=== PATIENT | female | born 1950 | race Caucasian/White ===

== ENCOUNTER 2024-01-23 07:48 | Inpatient (IN) | payer MEDICARE, SELFPAY ==
[2024-01-23] VITALS (50 sets, daily range): BP systolic 109–167; BP diastolic 53–72; PULSE 100–157; RESP 20–33; TEMP 36.1–37.3; O2SAT 85–100; BMI 22.9
--- NOTE | ~2024-01-23 | CT_ITS ---
CT Scan of the Chest without Contrast: Clinical Indication: Mass Technique: Contiguous sections were acquired throughout the chest without intravenous contrast. Dose reduction technique was used on this scan by utilizing automated exposure control and iterative recon struction technique. The dose-length product (DLP) was 163.19 mGy-cm. Findings: There is no evidence of any significant mediastinal, hilar or axillary lymphadenopathy. The mediastin al soft tissues appear normal. No pericardial effusion. Small left pleural effusion present. No right pleural effusion. There is left basilar consolidation, involving the lingula and anterolateral left lower lobe. There i s extensive interstitial change, chronic-appearing in the bilateral upper lobes, probable left apical scarring. Additional somewhat streaky opacities in the left upper lobe suggest chronic scarring, as well as in the right upper lobe. There is a 9 mm nodular opacity in the right lower lobe (axial image 51). Images through the upper abdomen reveal cholelithiasis. Infrarenal abdominal aorta measures up to 3 c m in maximum diameter. Impression: Consolidation of the lingula and anterolateral left lobe is suggestive of pneumonia. Extensive probable chronic interstitial change with areas of superimposed probable chronic scarring o r atelectasis, especially the upper lobes. 9 mm nodular opacity right lower lobe, indeterminate, possibly additional chronic scarring. Follow-up CT scan after interval therapy (in 1-3 months) recommended to reassess pulmonary pathology. Possible partially imaged infrarenal abdominal aortic aneurysm, with visualized portion measuring up to 3 cm in maximum diameter. Reviewed, dictated and finalized at [facility]. Impression: Consolidation of the lingula and anterolateral left lobe is suggestive of pneum onia. Extensive probable chronic interstitial change with areas of superimposed proba ble chronic scarring or atelectasis, especially the upper lobes. 9 mm nodular opacity right lower lobe, indeterminate, possibly additional chron ic scarring. Follow-up CT scan after interval therapy (in 1-3 months) recommended to reasses s pulmonary pathology. Possible partially imaged infrarenal abdominal aortic aneurysm, with visualized portion measuring up to 3 cm in maximum diameter.
--- NOTE | ~2024-01-23 | XR_ITS ---
XR chest 1V portable DATE: 01/23/2024 08:39 INDICATION: Shortness of breath. Nonproductive cough. TECHNIQUE: Portable upright AP chest on 01/23/2024 at 0829 hours COMPARISON: None FINDINGS: Scattered patchy infiltrates are noted including both upper lung desir, right lung base an d to a greater extent left mid and particularly left lower lung desir, including patchy consolidatio n in the left lower lung. Mild to moderate left and small right pleural effusions. There is volume loss of the left lung with leftward shift of the heart mediastinum. Left hilar mass l esion or adenopathy is not excluded. Heart size is borderline. Aortic calcification. Osteopenia. Mild thoracic levoscoliosis. IMPRESSION: Patchy bilateral pulmonary infiltrates, most prominent in the left mid and particularly l eft lower lung zones Volume loss of left lung with leftward heart and mediastinal shift Bilateral pleural effusions, left greater than right Left hilar prominence; left hilar mass lesion or adenopathy is not excluded Aortic atherosclerosis Osteopenia Reviewed, dictated and finalized at location [facility]. IMPRESSION: Patchy bilateral pulmonary infiltrates, most prominent in the left mid and particularly left lower lung zones Volume loss of left lung with leftward heart and mediastinal shift Bilateral pleural effusions, left greater than right Left hilar prominence; left hilar mass lesion or adenopathy is not excluded Aortic atherosclerosis Osteopenia
--- NOTE | ~2024-01-23 | XR_ITS ---
EXAMINATION: XR chest 1V portable DATE: 02/04/2024 06:12 INDICATION: Pneumonia. TECHNIQUE: A single frontal view of the chest was obtained. COMPARISON: Chest single view 02/03/2024, chest CT 01/23/2024 FINDINGS: There is mild elevation of left hemidiaphragm. There are airspace and interstitial opacitie s in all lung zones bilaterally. There are small pleural effusions. No pneumothorax. The heart size i s normal. IMPRESSION: 1. Stable diffuse lung disease, likely a combination of pneumonia and pulmonary edema superimposed on chronic lung disease. 2. Stable small pleural effusions. Reviewed, dictated and finalized at location [facility].
--- NOTE | ~2024-01-23 | US_ITS ---
EXAMINATION: US renal BI DATE: 01/31/2024 17:09 INDICATION: Elevated creatinine. TECHNIQUE: Multiple ultrasound grayscale images of the kidneys were obtained. COMPARISON: Chest CT 01/23/2024 FINDINGS: The right kidney measures 10.0 x 4.5 x 3.6 cm. The left kidney measures 8.1 x 4.2 x 4.6 cm. The kidne ys demonstrate normal parenchymal echogenicity. There is no hydronephrosis. The bladder is normal. IMPRESSION: 1. Mild atrophy of left kidney. No hydronephrosis. Reviewed, dictated and finalized at location A.
--- NOTE | ~2024-01-23 | XR_ITS ---
Portable chest x-ray Comparison: 02/03/2024 Clinical History: Shortness of breath Findings: Small bilateral pleural effusions are again present, left larger than right. There is diff use interstitial disease in the lungs, with some focal areas of patchy consolidation. Cardiomediasti nal silhouette is stable. Bones and soft tissues are unremarkable. Impression: Diffuse interstitial pulmonary disease with patchy alveolar airspace opacities. Findings could reflec t pulmonary edema, infection, and/or chronic interstitial disease. Clinical correlation required. Small bilateral pleural effusions are unchanged. Reviewed, dictated and finalized at location . Impression: Diffuse interstitial pulmonary disease with patchy alveolar airspace opacities. Findings could reflect pulmonary edema, infection, and/or chronic interstitial disease. Clinical correlation required. Small bilateral pleural effusions are unchanged.
--- NOTE | ~2024-01-23 | XR_ITS ---
EXAMINATION: XR chest 1V portable DATE: 02/08/2024 05:42 INDICATION: Post COVID organizing pneumonia. TECHNIQUE: A single frontal view of the chest was obtained. COMPARISON: Chest single view 02/07/2024, chest CT 02/05/2024 FINDINGS: There is volume loss of left hemithorax. There are is a diffuse coarse interstitial pattern in the lungs. There are peripheral airspace opacities in all lung zones bilaterally. There are small pleural effusions. No pneumothorax. The heart size is normal. IMPRESSION: 1. Stable diffuse lung disease, likely a combination of pneumonia and pulmonary edema superimposed on chronic lung disease. 2. Stable small pleural effusions. Reviewed, dictated and finalized at location A.
--- NOTE | ~2024-01-23 | XR_ITS ---
XR chest 1V portable DATE: 02/03/2024 06:48 INDICATION: Respiratory distress TECHNIQUE: Portable AP chest on 02/03/2024 0623 hours COMPARISON: 01/30/2024 portable AP chest FINDINGS: Scattered patchy infiltrates are increased since 01/30/2024. Mild bilateral pleural effusion s, left greater than right are again noted. Chronic pulmonary fibrotic changes likely. Diffuse osteopenia. IMPRESSION: Scattered patchy bilateral pulmonary infiltrates, mildly increased since 01/30/2004 Reviewed, dictated and finalized at location A.
--- NOTE | ~2024-01-23 | CT_ITS ---
EXAMINATION: CT diagnostic chest wo con DATE: 02/05/2024 14:44 INDICATION: Shortness of breath. History of Covid. TECHNIQUE: Computed tomography (CT) of the chest was performed without intravenous contrast. Automate d exposure control and iterative reconstruction technique were employed. Exam dose: 158.69 mGy-cm to abdoul exam DLP. COMPARISON: February 04, 2024 portable AP chest 01/23/2024 CT chest FINDINGS: Low-attenuation blood pool suggesting anemia. There is some calcification at the aortic valve. Coronary artery calcifications. Mild cardiomegaly. T here is atherosclerotic calcification of the thoracic aorta and great vessels. No thoracic aortic ane urysm. There is abdominal aortic calcification and calcification at the origins of the celiac, superi or mesenteric and renal arteries. Likely reactive mild mediastinal lymphadenopathy. Extensive patchy consolidation in the upper lobes, increased since 01/23/2024 suggesting bilateral pne umonia. There is increased atelectasis or infiltrate at the left lower lobe and interval infiltrate a nd atelectasis in the right lower lobe since 01/23/2024, in addition to new right pleural effusion sin ce 01/23/2024. Chronic emphysematous changes of the lungs and chronic patchy bilateral scarring and honeycombing Mild to moderate left pleural effusion, mildly increased since 01/23/2024. Sternal manubrium and body fractures are suggested on the sagittal reconstructions are more likely du e to motion; recommend clinical correlation. No suspicious osteolytic or osteoblastic lesions. IMPRESSION: Increased bilateral pulmonary infiltrates and atelectasis since 01/23/2024 Increased moderate left pleural effusion and new mild right pleural effusion since 01/23/2024 Chronic bilateral pulmonary scarring, honeycombing, emphysematous changes Reviewed, dictated and finalized at [facility]. Reviewed, dictated and finalized at location [facility]. IMPRESSION: Increased bilateral pulmonary infiltrates and atelectasis since Increased moderate left pleural effusion and new mild right pleural effusion si nce 01/23/2024 Chronic bilateral pulmonary scarring, honeycombing, emphysematous changes
--- NOTE | ~2024-01-23 | XR_ITS ---
EXAMINATION: XR chest 1V portable DATE: 01/30/2024 05:32 INDICATION: COVID-19 pneumonia. TECHNIQUE: A single frontal view of the chest was obtained. COMPARISON: Chest single view 01/23/2024, chest CT 01/23/2024 FINDINGS: There are interstitial and airspace opacities in all lung zones bilaterally, worst in left lower lung zone. There is a small left pleural effusion. No pneumothorax. The heart size is normal. IMPRESSION: 1. Stable diffuse lung disease, consistent with pneumonia. 2. Stable small left pleural effusion. Reviewed, dictated and finalized at location A.
--- NOTE | 2024-01-23 07:51 | ECG_ITS ---
Measurements Intervals [place] Rate: 113 P: 81 WV: 118 QRS: 63 QRSD: 74 T: 44 QT: 304 QTc: 417 Interpretive Statements SINUS TACHYCARDIA BORDERLINE ST-T WAVE ABNORMALITY- INFERIOR LEADS BASELINE ARTIFACT- I, II, AVR, AVL, AVF, V1-V6 ABNORMAL ECG NO PREVIOUS ECG AVAILABLE FOR COMPARISON Electronically Signed On 01-23-2024 8:20:45 CDT by Jason Horn D.O.
[2024-01-23] MEDS: IPRATROPIUM 0.5 MG/ALBUTEROL SULFATE 2.5 MG AMPUL.NEB 3 ML INHALATION ×4 (08:01→21:09)
--- NOTE | 2024-01-23 08:03 | ED.SOB ---
HPI - SOB/Dyspnea General Chief Complaint: Shortness of Breath/Dyspnea Stated Complaint: RESP DISTRESS Time Seen by Provider: 01/23/24 08:07 History of Present Illness HPI Narrative: Pt presents to ED this morning form local [place] with SOB. Pt diagnosed with pneumonia yesterday by CXR and started on po levaquin. Pt has COPD history and is non compliant with cpap. Pt went to therapy this morning and was SOB with sats in 80's per EMS. Pt denies fever or CP or swelling in legs. Pt feels better after getting neb in route. Related Data Home Medications Medication Instructions Recorded Confirmed acetaminophen 325 mg capsule 650 mg PO ONCE 01/23/24 amlodipine 10 mg tablet 10 mg PO DAILY 01/23/24 aspirin 81 mg tablet 81 mg PO DAILY 01/23/24 bisacodyl 5 mg tablet 5 mg PO ONCE 01/23/24 calcium carbonate 600 mg-vitamin tablet PO 01/23/24 D3 1,000 unit-vitamin K2 90 mcg tab citalopram 20 mg tablet 20 mg PO DAILY 01/23/24 ferrous sulfate 325 mg (65 mg 325 mg PO DAILY 01/23/24 iron) tablet magnesium hydroxide 400 mg/5 mL 30 ml PO DAILY PRN Constipation 01/23/24 oral suspension metoprolol tartrate 50 mg tablet 100 mg PO BID 01/23/24 pantoprazole 40 mg tablet,delayed 40 mg PO QAM 01/23/24 release pravastatin 40 mg tablet 40 mg PO DAILY 01/23/24 Allergies Allergy/AdvReac Type Severity Reaction Status Date / Time No Known Allergies Allergy Verified 01/23/24 08:35 Review of Systems Review of Systems: All systems reviewed & are unremarkable except as noted in HPI and below Exam Const: General: healthy appearing and no acute distress Nutritional Appearance: well nourished Orientation/consciousness: patient oriented x3 Limitations: no limitations HENMT: Head: normal to inspection Mouth: Yes Normal oral and palatal mucosa present Resp: Effort & Inspection: labored Auscultation: wheezes Cardio: Rate: tachycardic Rhythm: regular rhythm GI: GI Palp: Yes Soft to palpation Auscultation: normal bowel sounds Skin: General skin exam: normal color Rashes: no rashes Wounds: no wounds Neuro: General: patient oriented x3, moves all extremities, no meningeal signs, no focal motor deficits and CN's II-XI intact bilaterally Cranial nerves: Yes Nystagmus not present Speech: normal speech Extrem: General: normal to inspection and no clubbing, cyanosis or edema Psych: Mental Status: mental status grossly normal Affect: normal affect Attitude: cooperative Course Vital Signs Vital signs: Vital Signs Temperature 98.7 F 01/23/24 07:45 Pulse Rate 122 H 01/23/24 07:45 Respiratory Rate 24 H 01/23/24 07:45 Pulse Oximetry 85 L 01/23/24 07:45 Oxygen Delivery Nasal Cannula 01/23/24 07:45 Oxygen Flow Rate 4 01/23/24 07:45 Temperature 98.7 F 01/23/24 07:45 Pulse Rate 136 H 01/23/24 09:18 Respiratory Rate 24 H 01/23/24 09:18 Pulse Oximetry 100 01/23/24 08:36 Oxygen Delivery Nasal Cannula 01/23/24 08:36 Oxygen Flow Rate 4 01/23/24 08:36 MDM - SOB/Dyspnea MDM Narrative Medical decision making narrative: Pt presents with SOB after diagnosis of pneumonia yesterday. Pt has pneumonia and CHF on cxr will add CT chest due to shift on cxr. Discussed with Dr Villa and agrees to admit. Differential Diagnosis Differential diagnosis: Likely acute exacerbation of chronic obstructive airways disease, congestive heart failure, community acquired pneumonia and pulmonary embolism (less likely since improved with neb and known pneumonia) Lab Data 01/23/24 08:04 01/23/24 08:04 Labs: Lab Results 01/23/24 Range/Units 08:04 WBC 19.4 H (4.5-10.0) K/mm3 RBC 2.58 L (4.2-5.4) M/mm3 Hgb 7.7 L (12.0-15.0) g/dL Hct 24.8 L (37.0-47.0) % MCV 96.1 (80-100) fl MCH 29.8 (26-34) pg MCHC 31.0 L (32-36) g/dl RDW 13.4 (11.5-14.5) % Plt Count 477 H (150-375) k/mm3 MPV 9.7 (7.4-10.4) fl Immature Gran % (Auto) 0.7 H (0-0.5) % Neut % (Aut
[2024-01-23 08:17] LABS: Basophils Absolute Auto 0.1 K/mm3 (0.0-0.1); Basophils Percent Auto 0.3 % (0.2-1.2); Eosinophils Absolute Auto 0.1 K/mm3 (0-0.3); Eosinophils Percent Auto 0.6 % (0-4.4); Hematocrit 24.8 % (37.0-47.0); Hemoglobin 7.7 g/dL (12.0-15.0); Immature Granulocyte Absolute 0.13 K/mm3 (0.00-0.031); Immature Granulocyte Percent A 0.7 % (0-0.5); Lymphocytes Percent Auto 2.6 % (18.3-44.2); Mean Corpuscular Hemoglobin 29.8 pg (26-34); Mean Corpuscular Volume 96.1 fl (80-100); Mean Platelet Volume 9.7 fl (7.4-10.4); Monocytes Absolute Auto 1.2 K/mm3 (0.1-0.6); Monocytes Percent Auto 6.1 % (2.6-8.5); Neutrophils Absolute Auto 17.5 K/mm3 (1.3-6.7); Neutrophils Percent Auto 89.7 % (45.5-73.1); Platelet Count Result 477 k/mm3 (150-375); Red Blood Count 2.58 M/mm3 (4.2-5.4); Red Cell Distribution Width 13.4 % (11.5-14.5); White Blood Count 19.4 K/mm3 (4.5-10.0)
[2024-01-23 08:20] LABS: Alveolar/Arterial O2 Gradient 172.6 mmHg; Fractional Inspired Oxygen 38 %; HCO3 ABG 27.1 mEq/l (22.0-26.0); Oxygen Content ABG 10.8 %vol (16.0-22.0); PCO2 ABG 39.4 mmHg (35.0-45.0); PO2 ABG 52.8 mmHg (80.0-100.0); PO2 FiO2 Ratio Arterial Blood 1.39 %; Total Hemoglobin 8.8 g/dL (12.0-18.0); pH ABG 7.456 (7.350-7.450)
[2024-01-23 08:22] LABS: Alanine Aminotransferase 15 U/L (6-35); Albumin Level 2.9 g/dL (3.5-5.1); Alkaline Phosphatase 98 U/L (38-126); Anion Gap 1 mmol/L (8-16); Aspartate Amino Transferase 18 U/L (14-36); Bilirubin,Total 0.5 mg/dL (0.2-1.3); Blood Urea Nitrogen 35 mg/dL (7-17); Calcium 8.3 mg/dL (8.4-10.2); Carbon Dioxide 32 mmol/L (22-30); Chloride 100 mmol/L (98-107); Estimated CRCL calculation 15 ml/min; Estimated Glomerular Filt Rate 21; Glucose 153 mg/dL (65-110); Magnesium 1.5 mg/dL (1.6-2.3); Potassium 4.6 mmol/L (3.4-5.0); Sodium 133 mmol/L (137-145)
[2024-01-23 08:23] LABS: Oxyhemoglobin 87.1 % THb (90.0-100.0)
[2024-01-23 08:23] LABS: INR 1.2; Prothrombin Time 15.6 Seconds (11.1-14.7)
[2024-01-23 08:24] LABS: Partial Thromboplastin Time 35.1 Seconds (22.3-36.8)
[2024-01-23 08:24] LABS: Device NASAL CANNULA; Liters per Minute 4.5 LPM; Modified Allen's Test Pass; Site Drawn LEFT RADIAL
[2024-01-23 08:33] LABS: NT Pro B Type Natriuretic Pept 1810 pg/mL (19.9-100)
[2024-01-23 08:34] LABS: Troponin I < 0.012 ng/mL (0.000-0.034)
[2024-01-23] MEDS: Please add drug allergy info to patient profile. 1 EACH XX (08:41)
[2024-01-23] MEDS: levoFLOXacin 750 MG/D5W 150 ML 750 MG/150 ML BAG 100 MG IVPB (09:55)
[2024-01-23] MEDS: FUROSEMIDE INJ 40 MG/4 ML VIAL IV PUSH (09:55)
[2024-01-23 11:22] LABS: Influenza A QL RT-PCR Negative (Negative); Influenza B QL RT-PCR Negative (Negative); RSV RNA, RT-PCR Negative (Negative); SARS-CoV-2 RNA PCR Positive (Negative)
--- NOTE | 2024-01-23 13:07 | PM.IMHP ---
H&P: HPI History of Present Illness Date/Time: 01/23/24 13:07 Chief Complaint: SOB Narrative: 73 y/o F presents here with SOB with PMH of CKD, chronic respiratory failure, COPD, chronic PE, DM2, HLD, and cirrhosis of the liver. Patient presents here via EMS from [place] with SOB. Patient had CXR done outpatient which showed PNA. Started on PO Levaquin yesterday. Patient was at therapy this morning when she became more SOB, patient does not recall events. Per EMS, sat was in the 80's and given DuoNeb while being transported and only modestly improved upon arrival to the ED. Patient was 85% on 4L NC. Given additional breathing treatments in ED with improvement to 93-100% on 4L. Patient tachycardiac: 120's-150's. Per review of [place] paperwork, patient has history of chronic PE. NM perfusion study ordered and patient was unable to tolerate study. Patient became acutely SOB, recurrent wheezing, hypoxic, and had worsening tachycardia. Son contributing to HPI with patient's permission. Per son, has been over a year since a provider has worked up the PE. She was seeing a collar setter overlock at [facility]. Did not follow-up do to feeling unwell on day of appt and did not reschedule, has habit of this when not her PCP. On Eliquis BID. Patient tested positive for COVID during last admission: 12/30 - 01/16. Was admitted to [facility] ICU initially for hypoglycemia but found to have COVID. Hypoglycemia secondary to medication and poor PO intake. No other recent diagnosis or treatment of PNA to son's knowledge. Patient currently reporting increased fatigue - unclear onset. Denying fever, chills, or body aches. Has baseline confusion - short term memory primarily but no formal diagnosis of dementia. Example given: will forget family is visiting when they return from the bathroom. Initial VS at presentation: 98.7F, HR 122, RR 24, 109/69, and 85% on 4L NC. ED workup showed: WBC 19.4, Hgb 7.7, INR 1.2, Na 133, creatinine 2.3, glucose 153, Mag 1.5, BNP 1810, and +COVID (unclear if old/new). CXR showed patchy bilateral pulmonary infiltrates, volume loss of left lung with leftward heart and mediastinal shift, bilateral pleural effusions, left hilar prominence. Chest CT shows consolidation of the lingula and anterior lateral left lobe suggestive of pneumonia, extensive lower chronic interstitial changes, 9 mm nodular opacity right lower lobe, and possible partially imaged infrarenal a visualized portion measuring up to 3 cm. [facility] Past Medical History Medical History (Updated 01/23/24 @ 16:11 by Lise Schuster, SEAN) Anemia CHF (congestive heart failure) Chronic pulmonary embolism Chronic respiratory failure with hypoxia Cirrhosis of liver CKD (chronic kidney disease) stage 4, GFR 15-29 ml/min COPD (chronic obstructive pulmonary disease) DM2 (diabetes mellitus, type 2) GERD (gastroesophageal reflux disease) HLD (hyperlipidemia) Severe protein-calorie malnutrition Solitary pulmonary nodule SVT (supraventricular tachycardia) Meds Home Medications and Allergies Home Medications Medication Instructions Recorded Confirmed Type acetaminophen 325 mg capsule 650 mg PO ONCE 01/23/24 History amlodipine 10 mg tablet 10 mg PO DAILY 01/23/24 History apixaban 2.5 mg tablet (Eliquis) 2.5 mg PO BID 01/23/24 History arformoterol 15 mcg/2 mL solution 2 ml inhalation BID 01/23/24 History for nebulization aspirin 81 mg tablet 81 mg PO DAILY 01/23/24 History bisacodyl 5 mg tablet 5 mg PO ONCE 01/23/24 History budesonide 0.25 mg/2 mL suspension 0.5 mg inhalation DAILY 01/23/24 History for nebulization calcium carbonate 600 mg-vitamin tablet PO 01/23/24 History D3 1,000 unit-vitamin K2 90 mcg tab citalopram 20 mg tablet 20 mg PO DAILY 01/23/24 History dextromethorphan-guaifenesin 30 1 tablet PO Q12H 01/23/24 History mg-600 mg tablet extended [id number] hr (Mucinex DM) ferrous sulfate 325 mg (65 mg 325 mg PO DAILY 01/23/24 History iron) ta
--- NOTE | 2024-01-23 13:24 | PC.NURSE ---
pt to NM scan and was unable to tolerate lying down flat. staff called to report pt was struggling to breathe. myself and charge nurse went to pt and brought her back to ED room 8 prior to test being done. while in testing room pt was in tripod position trying to catch breath. O2 was 90% and hr 160. notified and new orders coming. temporal O2 cord applied for better reading
[2024-01-23] MEDS: ALBUTEROL SULFATE NEB 2.5 MG/3 ML INH INHALATION (13:32)
[2024-01-23] MEDS: methylPREDNISolone SOD SUCC 125 MG VIAL IV PUSH (13:35)
[2024-01-23] MEDS: MAGNESIUM SULF 1 GM/D5W 100 ML 1 GM/100 ML BAG IVPB (13:51)
[2024-01-23 14:48] LABS: Lactic Acid Reflex 4.1 mmol/L (0.7-2.0)
[2024-01-23] MEDS: VANCOMYCIN 750 MG/NS 250 ML 750 MG/250 ML BAG 250 MG IVPB (16:07)
[2024-01-23] MEDS: LACTATED RINGERS 1,000 ML 999 ML IV CONT (16:07)
[2024-01-23 16:15] LABS: Glucose Point of Care 298 mg/dl (65-105)
--- NOTE | 2024-01-23 17:12 | ADMGEN ---
This patient, Nelsy Grider, was admitted to IMU Room 213-01. Patient/family oriented to hospital policies and general routines including ID bracelet, bed and alarms, visiting hours, pain management, procedures, bathroom and other care routines, personal items, smoking policy, room service/diet, and visiting hours. Information on how to activate the Rapid Response Team has been discussed. Patient/Family are encouraged to report perceived risks to care and to ask questions if they do not understand what they are told or what they should do.
[2024-01-23 17:22] LABS: Reflex Lactic Acid Yes or No Add Lactic
[2024-01-23 17:32] LABS: MRSA (PCR) NOT DETECTED (NOT DETECTE)
[2024-01-23 18:24] LABS: Anion Gap 8 mmol/L (8-16); Blood Urea Nitrogen 38 mg/dL (7-17); Carbon Dioxide 25 mmol/L (22-30); Chloride 98 mmol/L (98-107); Estimated CRCL calculation 14 ml/min; Estimated Glomerular Filt Rate 18; Glucose 347 mg/dL (65-110); Magnesium 1.9 mg/dL (1.6-2.3); Potassium 4.7 mmol/L (3.4-5.0); Sodium 131 mmol/L (137-145)
[2024-01-23] MEDS: INSULIN ASPART (*BKC) 100 UNITS/ML SUB-Q (19:12)
[2024-01-23] MEDS: METOPROLOL TARTRATE INJ 5 MG/5 ML VIAL IV PUSH (19:12)
[2024-01-23] MEDS: APIXABAN 2.5 MG TABLET PO (21:20)
--- NOTE | 2024-01-23 21:26 | PCRCNOTE ---
Pt refused to wear Bipap at night. Pt wanted to to stay on Airvo all night.
[2024-01-23 23:49] LABS: Glucose Point of Care 365 mg/dl (65-105)
[2024-01-24] VITALS (27 sets, daily range): BP systolic 132–161; BP diastolic 53–94; PULSE 73–125; RESP 16–32; TEMP 36.1–36.9; O2SAT 92–100
--- NOTE | 2024-01-24 | ECHO_ITS ---
Patient Info Name: Nelsy Grider Age: 73 years : 1950 Gender: Female Ht: 64 in Wt: 125 lbs BSA: 1.60 m2 HR: 109 bpm BP: 161 / 82 mmHg Heart Rhythm: Tachycardia Technical Quality: Good Exam Date: 01/24/2024 10:00 AM Exam Location: Echo Lab Patient Status: Inpatient Admit Date: 01/23/2024 Staff Ordering Physician: Soumya Desai MD [employer] Machine: Shelli Wilkerson RDCS Attending Provider: Mario Thomas MD Exam Type: CA echo doppler color flow Study Info Indications - sob, hypoxia Complete two-dimensional, color flow and Doppler transthoracic echocardiogram is performed. Summary 1. Complete two-dimensional, color flow and Doppler transthoracic echocardiogram is performed. 2. Left ventricular chamber dimension is normal. 3. Left ventricular systolic function is normal, estimated at 65-70%. 4. The left ventricular diastolic function is grade I diastolic dysfunction. 5. Right ventricular chamber dimension is mildly enlarged. 6. Right ventricular systolic function is normal. 7. Left atrial chamber dimension is moderately enlarged. 8. Right atrial chamber dimension is moderately enlarged. 9. There is mild tricuspid valve regurgitation. 10. Normal inferior vena cava with >50% collapse upon inspiration consistent with normal right atrial pressure, 3 mmHg. Left Ventricle Left ventricular chamber dimension is normal. Left ventricular systolic function is normal, estimated at 65-70%. There is no increased left ventricular wall thickness. The left ventricular diastolic function is grade I diastolic dysfunction. Right Ventricle Right ventricular chamber dimension is mildly enlarged. Right ventricular systolic function is normal. Left Atria Left atrial chamber dimension is moderately enlarged. Right Atria Right atrial chamber dimension is moderately enlarged. Atrial Septum Intact interatrial septum visualized by color flow imaging. Aortic Valve The aortic valve is trileaflet. There is no aortic valve stenosis. There is no aortic valve regurgitation. Pulmonic Valve The pulmonic valve is not well visualized. Mitral Valve The mitral valve has thickened leaflets. There is trace mitral valve regurgitation. Tricuspid Valve There is mild tricuspid valve regurgitation. Pericardium/Pleural There is no pericardial effusion. Inferior Vena Cava Normal inferior vena cava with >50% collapse upon inspiration consistent with normal right atrial pressure, 3 mmHg. Aorta The aortic root size at the sinus of Valsalva is normal. Left Ventricular Outflow Tract Name Value Normal LVOT 2D LVOT Diameter 2.0 cm LVOT Doppler LVOT Peak Gradient 10 mmHg LVOT Mean Gradient 6 mmHg LVOT VTI 49 cm LVOT VTI/AV VTI Ratio 1.3 LVOT Stroke Volume 160 ml LVOT CO 11.8 l/min LVOT CI 7.3 l/min/m2 Pulmonic Valve Name Value Normal RV
[2024-01-24] MEDS: IPRATROPIUM 0.5 MG/ALBUTEROL SULFATE 2.5 MG AMPUL.NEB 3 ML INHALATION ×4 (03:54→20:08)
[2024-01-24 05:14] LABS: Basophils Percent Auto 0.3 % (0.2-1.2); Hematocrit 21.7 % (37.0-47.0); Immature Granulocyte Absolute 0.05 K/mm3 (0.00-0.031); Immature Granulocyte Percent A 0.5 % (0-0.5); Lymphocytes Absolute Auto 0.26 K/mm3 (0.9-3.2); Lymphocytes Percent Auto 2.4 % (18.3-44.2); Mean Corpuscular HGB Conc 30.9 g/dl (32-36); Mean Corpuscular Hemoglobin 28.9 pg (26-34); Mean Corpuscular Volume 93.5 fl (80-100); Mean Platelet Volume 9.8 fl (7.4-10.4); Monocytes Absolute Auto 0.2 K/mm3 (0.1-0.6); Neutrophils Absolute Auto 10.1 K/mm3 (1.3-6.7); Neutrophils Percent Auto 94.8 % (45.5-73.1); Platelet Count Result 404 k/mm3 (150-375); Red Blood Count 2.32 M/mm3 (4.2-5.4); Red Cell Distribution Width 13.4 % (11.5-14.5); White Blood Count 10.7 K/mm3 (4.5-10.0)
[2024-01-24 05:20] LABS: Lactic Acid Reflex 0.6 mmol/L (0.7-2.0)
[2024-01-24 05:22] LABS: Alanine Aminotransferase 13 U/L (6-35); Albumin Level 2.8 g/dL (3.5-5.1); Alkaline Phosphatase 108 U/L (38-126); Anion Gap 4 mmol/L (8-16); Aspartate Amino Transferase 17 U/L (14-36); Bilirubin,Total 0.3 mg/dL (0.2-1.3); Blood Urea Nitrogen 40 mg/dL (7-17); Calcium 8.6 mg/dL (8.4-10.2); Carbon Dioxide 29 mmol/L (22-30); Chloride 99 mmol/L (98-107); Estimated CRCL calculation 14 ml/min; Estimated Glomerular Filt Rate 18; Glucose 243 mg/dL (65-110); Potassium 4.6 mmol/L (3.4-5.0); Sodium 132 mmol/L (137-145)
[2024-01-24 06:33] LABS: Hemoglobin 6.7 g/dL (12.0-15.0)
[2024-01-24 06:36] LABS: Platelet Estimate Slightly Increased (Adequate)
[2024-01-24 06:37] LABS: Anisocytosis 1+; Hypochromasia 1+; Schistocytes 1+; Stomatocytes 1+
--- NOTE | 2024-01-24 08:03 | PC.NURSE ---
lab reported 6.7 hgb around 0632. unable to get a hold of record producer. Edith RN notified and will pass on to daytime hospitalist
[2024-01-24 08:13] LABS: Glucose Point of Care 223 mg/dl (65-105)
[2024-01-24] MEDS: INSULIN ASPART (*BKC) 100 UNITS/ML SUB-Q ×2 (08:56→17:19)
[2024-01-24] MEDS: PANTOPRAZOLE SODIUM IV 40 MG VIAL IV PUSH (08:57)
[2024-01-24] MEDS: dexAMETHasone SOD PHOS INJ 10 MG/ML 1 ML VIAL 6 MG IV PUSH (08:57)
[2024-01-24] MEDS: APIXABAN 2.5 MG TABLET PO (08:57)
[2024-01-24] MEDS: FLUTICASONE/SALMETEROL 115-21 MCG INHALER 1 PUFF 2 PUFF INHALATION ×2 (10:00→20:08)
[2024-01-24 11:07] LABS: NT Pro B Type Natriuretic Pept 1930 pg/mL (19.9-100)
[2024-01-24 11:41] LABS: Procalcitonin 0.5 ng/mL
[2024-01-24] MEDS: SODIUM CHLORIDE 0.9% IV 250 ML 30 ML IV CONT (12:00)
[2024-01-24] MEDS: TUBING, BLOOD PLUM PUMP TUBING 1 EACH XX (12:00)
[2024-01-24 12:10] LABS: Glucose Point of Care 155 mg/dl (65-105)
--- NOTE | 2024-01-24 14:30 | PM.IMPN ---
Progress Note: A&P Assessment and Plan (1) Anemia: Code(s): D64.9 - Anemia, unspecified Status: Acute (2) Chronic pulmonary embolism: Code(s): I27.82 - Chronic pulmonary embolism Status: Acute (3) Acute and chronic respiratory failure: Code(s): J96.20 - Acute and chronic respiratory failure, unspecified whether with hypoxia or hypercapnia Status: Acute (4) Pneumonia: Code(s): J18.9 - Pneumonia, unspecified organism Status: Acute Plan 73-year-old female with past medical history of CKD, cirrhosis of liver presented with worsening shortness of breath.?CXR showed patchy bilateral pulmonary infiltrates, volume loss of left lung with leftward heart and mediastinal shift, bilateral pleural effusions, left hilar prominence.? Chest CT shows consolidation of the lingula and anterior lateral left lobe suggestive of pneumonia, extensive lower chronic interstitial changes, 9 mm nodular opacity right lower lobe, and possible partially imaged infrarenal a visualized portion measuring up to 3 cm 1. Acute on chronic respiratory failure: Meets SIRS criteria Continue with O2 support, currently on heated high-flow to keep O2 sats greater than 92% Continue with DuoNebs Continue with steroid Continue with levofloxacin, vancomycin was discontinued as MRSA nares was negative Elevated BNP, will give a trial of IV Lasix History of chronic pulmonary embolism, continue with Eliquis 2.Acute Anemia: obtain iron panel, vitamin b12, folate, LDH,Haptoglobin Will transfuse 1 unit of PRBC 3. Diabetes Mellitus: BG check TID AC and HS C/w SS insulin Adjust dose as needed 4.Tachycardia: Will add low dose BB 5. Code:DNR 6. DVT ppx:Eiquis 7. Dispo:pending improvement, critically sick Time Spent With Patient Time with patient: 15 - 25 minutes Subjective Date/time seen: 01/24/24 14:30 Interval history: Continues to be short of breath, on heated high-flow oxygen Review of Systems Review of Systems: All systems reviewed & are unremarkable except as noted in HPI and below Exam Const: Other: Patient, female, mild work of breathing, ill-appearing HENMT: Face/Nose/Sinus: Normal nares present Mouth: Yes moist mucous membranes Other: NC in place Eyes: General: appearance normal, both eyes and all related structures Sclera: sclerae normal Pupils: Equal, round and reactive pupils present Resp: Other: mild WOB/tachpnea, crackles and coarse lung sounds mid lung to bases bilaterally. no wheeze at present. Cardio: Rate: tachycardic Rhythm: regular rhythm Other: No murmur or ectopy. Skin: General skin exam: normal color and no rashes or lesions noted Wounds: no wounds Neuro: Speech: normal speech Sensory Exam: normal sensation Other: A/Ox self and type of place. Incorrect year and very little situational knowledge. Moving all extremities. Extrem: General: normal to inspection Psych: Affect: Anxious affect present Other: Poor insight and judgment, pleasant. Objective Data Vital Signs Vital Signs: Vital Signs - 24 hr 01/23/24 14:31 01/23/24 14:46 01/23/24 15:16 Temperature Pulse Rate 131 H 126 H 129 H Respiratory Rate 25 H 25 H 25 H Blood Pressure 118/70 131/53 L 145/57 H Pulse Oximetry 97 98 97 Oxygen Delivery Oxygen Flow Rate Fraction of Inspired Oxygen 01/23/24 15:31 01/23/24 15:46 01/23/24 16:01 Temperature Pulse Rate 122 H 126 H 126 H Respiratory Rate 21 H 25 H 23 H Blood Pressure 160/66 H 156/59 H 160/62 H Pulse Oximetry 96 96 97 Oxygen Delivery Oxygen Flow Rate Fraction of Inspired Oxygen 01/23/24 16:17 01/23/24 16:31 01/23/24 16:47 Temperature Pulse Rate 121 H 119 H 120 H Respiratory Rate 21 H 22 H 22 H Blood Pressure 149/72 H 149/62 H Pulse Oximetry 96 98 100 Oxygen Delivery Oxygen Flow Rate Fraction of Inspired Oxygen 01/23/24 17:09 01/23/24 16:30 01/23/24 19:1
[2024-01-24] MEDS: FUROSEMIDE INJ 40 MG/4 ML VIAL IV PUSH (15:39)
[2024-01-24] MEDS: METOPROLOL TARTRATE 25 MG TABLET PO ×2 (15:39→21:28)
[2024-01-24 16:21] LABS: Glucose Point of Care 212 mg/dl (65-105)
[2024-01-24 21:23] LABS: Glucose Point of Care 148 mg/dl (65-105)
[2024-01-25] VITALS (26 sets, daily range): BP systolic 121–150; BP diastolic 49–77; PULSE 69–97; RESP 16–24; TEMP 36.2–37.1; O2SAT 90–99
[2024-01-25] MEDS: IPRATROPIUM 0.5 MG/ALBUTEROL SULFATE 2.5 MG AMPUL.NEB 3 ML INHALATION ×4 (02:17→20:52)
[2024-01-25 04:51] LABS: Iron 59 ug/dL (37-170)
[2024-01-25 05:09] LABS: Basophils Percent Auto 0.2 % (0.2-1.2); Hemoglobin 9.2 g/dL (12.0-15.0); Immature Granulocyte Absolute 0.07 K/mm3 (0.00-0.031); Immature Granulocyte Percent A 0.6 % (0-0.5); Lymphocytes Percent Auto 4.1 % (18.3-44.2); Mean Corpuscular HGB Conc 31.7 g/dl (32-36); Mean Corpuscular Hemoglobin 29.5 pg (26-34); Mean Corpuscular Volume 92.9 fl (80-100); Mean Platelet Volume 9.6 fl (7.4-10.4); Monocytes Percent Auto 8.2 % (2.6-8.5); Neutrophils Absolute Auto 10.5 K/mm3 (1.3-6.7); Neutrophils Percent Auto 86.9 % (45.5-73.1); Platelet Count Result 438 k/mm3 (150-375); Red Blood Count 3.12 M/mm3 (4.2-5.4); Red Cell Distribution Width 13.6 % (11.5-14.5); White Blood Count 12.1 K/mm3 (4.5-10.0)
[2024-01-25 05:21] LABS: Anion Gap -1 mmol/L (8-16); Blood Urea Nitrogen 41 mg/dL (7-17); Calcium 8.5 mg/dL (8.4-10.2); Carbon Dioxide 37 mmol/L (22-30); Chloride 98 mmol/L (98-107); Estimated CRCL calculation 14 ml/min; Estimated Glomerular Filt Rate 18; Glucose 130 mg/dL (65-110); Magnesium 2.1 mg/dL (1.6-2.3); Potassium 3.8 mmol/L (3.4-5.0); Sodium 134 mmol/L (137-145)
[2024-01-25 05:30] LABS: Platelet Estimate Slightly Increased (Adequate)
[2024-01-25 05:31] LABS: Anisocytosis 1+; Hypochromasia 1+; Schistocytes 1+; Stomatocytes 1+
[2024-01-25] MEDS: FLUTICASONE/SALMETEROL 115-21 MCG INHALER 1 PUFF 2 PUFF INHALATION ×2 (08:46→20:53)
[2024-01-25 09:46] LABS: Glucose Point of Care 179 mg/dl (65-105)
[2024-01-25] MEDS: levoFLOXacin 500 MG/D5W 100 ML 500 MG/100 ML BAG 100 MG IVPB (09:48)
[2024-01-25] MEDS: PANTOPRAZOLE SODIUM IV 40 MG VIAL IV PUSH (09:48)
[2024-01-25] MEDS: dexAMETHasone SOD PHOS INJ 10 MG/ML 1 ML VIAL 6 MG IV PUSH (09:48)
[2024-01-25] MEDS: FUROSEMIDE INJ 40 MG/4 ML VIAL IV PUSH (09:49)
[2024-01-25] MEDS: METOPROLOL TARTRATE 25 MG TABLET PO ×2 (09:49→21:50)
--- NOTE | 2024-01-25 10:20 | PM.IMPN ---
Progress Note: A&P Assessment and Plan (1) Anemia: Code(s): D64.9 - Anemia, unspecified Status: Acute (2) Chronic pulmonary embolism: Code(s): I27.82 - Chronic pulmonary embolism Status: Acute (3) Acute and chronic respiratory failure: Code(s): J96.20 - Acute and chronic respiratory failure, unspecified whether with hypoxia or hypercapnia Status: Acute (4) Pneumonia: Code(s): J18.9 - Pneumonia, unspecified organism Status: Acute Plan 73-year-old female with past medical history of CKD, cirrhosis, hypertension, COPD with chronic respiratory failure use of noninvasive ventilator at night, chronic PE, insulin-dependent diabetes mellitus, hyperlipidemia, anemia presents on 01/23/2024 with worsening shortness of breath. Admitted for further eval and workup of sepsis, suspected bacterial pneumonia, and COVID-19. Acute on chronic respiratory failure -chronic COPD. She wears noninvasive ventilator at night and is on home O2. -tested COVID positive on 12/30 and again on 01/22. CT chest demonstrating interstitial changes along with possible pneumonia and a 9 mm nodular opacity at right lower lobe. This is suggestive pneumonia and the patient will need follow-up CT scan in 1 3 months. she has follow-up with pulmonology as well. -currently on high-flow nasal cannula at 30 L. maintain O2 saturation greater than 92% -BNP elevated to 1800 admission. Surface echo on 01/23 demonstrating EF of 65-70% with grade 1 diastolic dysfunction. IVC with greater than 50% collapse upon inspiration. Unlikely she has acute decompensated heart failure. Lasix started 01/23. Discontinue that. Continue to monitor. -treat bacterial pneumonia with levofloxacin IV. MRSA nares negative so vancomycin DC. Urinary antigens pending. Blood cultures pending. Sputum culture pending -trend inflammatory markers procalcitonin and white count. -considering COPD and possible COVID pneumonia playing a role especially in light of the increased for need of oxygen, you Kip and [place]. Severe sepsis without shock -present on admission. Lactate on admission 4.1 and has since cleared. Continue to monitor. Acute on chronic anemia -status post 1 unit PRBC. Continue trending hemoglobin -LDH vitamin B12 and folate pending. -iron panel on admission suggestive of inflammatory anemia Insulin-dependent diabetes mellitus -continue Accu-Cheks with hypoglycemia protocol. -hyperglycemia on admission. Low-dose sliding scale switch to moderate dose. Sinus tachycardia -present on admission. Has since resolved with initiation of low-dose beta-shay at 25 mg p.o. b.i.d.. He is on metoprolol 100 mg p.o. b.i.d. at home. History of hypertension -in the setting of sepsis we are holding off on her home antihypertensives. Been restarted on a low-dose metoprolol in light of sinus tachycardia although the proper treatment for that is to resolve her acute hypoxic respiratory failure. Continue to monitor Chronic PE -restart Eliquis tomorrow if hemoglobin stable. Chronic kidney disease -serum creatinine stable from 2.3-2.6 since admission. No prior values to compare as baseline. She likely has CKD stage 4. This is supported by her home dose of Eliquis at 2.5 mg p.o. b.i.d.. -avoid nephrotoxins if possible FEN: Saline lock IV. GI prophylaxis: Not indicated DVT prophylaxis: SCDs only. Restart Eliquis in a.m.. Lines: Peripheral IV Code Status: DNR Dispo: Stable in IMU. Continue telemetry. Time Spent With Patient Time with patient: 15 - 25 minutes Subjective Date/time seen: 01/25/24 10:20 Interval history: No acute overnight events. The patient has no complaints which can be elicited. She only wanted to know when she can get her tea. Review of Systems Review of Systems: All systems reviewed & are unremarkable except as noted in HPI and below (Subjective) Exam Const: General: comfortable and no acute distress Other:
[2024-01-25 10:27] LABS: Hemoglobin A1C 5.9 % (<5.7)
--- NOTE | 2024-01-25 10:27 | PC.NURSE ---
Dr. Long given report on Sepsis alert. POC reviewed with no new intervention at this time.
[2024-01-25 11:01] LABS: Lactate Dehydrogenase 177 U/L (120-246)
[2024-01-25 11:28] LABS: Glucose Point of Care 166 mg/dl (65-105)
[2024-01-25 13:06] LABS: Folic Acid 10.2 ng/mL (2.76->20)
[2024-01-25 16:16] LABS: Glucose Point of Care 197 mg/dl (65-105)
[2024-01-25 17:47] LABS: Percent Iron Saturation 30 % (20-50)
[2024-01-25 20:56] LABS: Glucose Point of Care 264 mg/dl (65-105)
[2024-01-25] MEDS: INSULIN ASPART (*BKC) 100 UNITS/ML SUB-Q (21:50)
[2024-01-26] VITALS (27 sets, daily range): BP systolic 118–153; BP diastolic 43–70; PULSE 65–113; RESP 16–24; TEMP 36.1–36.6; O2SAT 93–100
[2024-01-26] MEDS: IPRATROPIUM 0.5 MG/ALBUTEROL SULFATE 2.5 MG AMPUL.NEB 3 ML INHALATION ×4 (03:18→20:40)
[2024-01-26 04:40] LABS: Basophils Percent Auto 0.2 % (0.2-1.2); Hematocrit 27.7 % (37.0-47.0); Hemoglobin 8.7 g/dL (12.0-15.0); Immature Granulocyte Absolute 0.07 K/mm3 (0.00-0.031); Immature Granulocyte Percent A 0.7 % (0-0.5); Lymphocytes Absolute Auto 0.61 K/mm3 (0.9-3.2); Lymphocytes Percent Auto 5.7 % (18.3-44.2); Mean Corpuscular HGB Conc 31.4 g/dl (32-36); Mean Corpuscular Hemoglobin 29.3 pg (26-34); Mean Corpuscular Volume 93.3 fl (80-100); Monocytes Percent Auto 9.4 % (2.6-8.5); Platelet Count Result 463 k/mm3 (150-375); Red Blood Count 2.97 M/mm3 (4.2-5.4); Red Cell Distribution Width 13.2 % (11.5-14.5); White Blood Count 10.7 K/mm3 (4.5-10.0)
[2024-01-26 05:02] LABS: Alanine Aminotransferase 12 U/L (6-35); Albumin Level 2.6 g/dL (3.5-5.1); Alkaline Phosphatase 79 U/L (38-126); Anion Gap 1 mmol/L (8-16); Aspartate Amino Transferase 19 U/L (14-36); Bilirubin,Total 0.4 mg/dL (0.2-1.3); Blood Urea Nitrogen 52 mg/dL (7-17); CRP 4.1 mg/dL (<1.0); Carbon Dioxide 36 mmol/L (22-30); Chloride 95 mmol/L (98-107); Estimated CRCL calculation 15 ml/min; Estimated Glomerular Filt Rate 21; Glucose 148 mg/dL (65-110); Magnesium 1.9 mg/dL (1.6-2.3); Potassium 4.2 mmol/L (3.4-5.0); Sodium 132 mmol/L (137-145)
[2024-01-26 05:08] LABS: Procalcitonin 0.3 ng/mL
[2024-01-26 08:36] LABS: Glucose Point of Care 80 mg/dl (65-105)
[2024-01-26] MEDS: FLUTICASONE/SALMETEROL 115-21 MCG INHALER 1 PUFF 2 PUFF INHALATION ×2 (08:36→20:40)
[2024-01-26] MEDS: METOPROLOL TARTRATE 25 MG TABLET PO ×2 (09:03→21:06)
[2024-01-26] MEDS: dexAMETHasone SOD PHOS INJ 10 MG/ML 1 ML VIAL 6 MG IV PUSH (09:03)
[2024-01-26] MEDS: PANTOPRAZOLE SODIUM IV 40 MG VIAL IV PUSH (09:03)
[2024-01-26 12:11] LABS: Glucose Point of Care 180 mg/dl (65-105)
--- NOTE | 2024-01-26 13:02 | PM.IMPN ---
Progress Note: A&P Assessment and Plan (1) Anemia: Code(s): D64.9 - Anemia, unspecified Status: Acute (2) Chronic pulmonary embolism: Code(s): I27.82 - Chronic pulmonary embolism Status: Acute (3) Acute and chronic respiratory failure: Code(s): J96.20 - Acute and chronic respiratory failure, unspecified whether with hypoxia or hypercapnia Status: Acute (4) Pneumonia: Code(s): J18.9 - Pneumonia, unspecified organism Status: Acute Plan 73-year-old female with past medical history of CKD, cirrhosis, hypertension, COPD with chronic respiratory failure use of noninvasive ventilator at night, chronic PE, insulin-dependent diabetes mellitus, hyperlipidemia, anemia presents on 01/23/2024 with worsening shortness of breath. Admitted for further eval and workup of sepsis, suspected bacterial pneumonia, and COVID-19. Patient is stable on 01/26/2024. Give Lasix 20 mg IV x1. Continue to follow up cultures. Continue Decadron and DuoNebs. Continue to monitor hemoglobin and restart Eliquis tomorrow if stable. Acute on chronic respiratory failure -chronic COPD. She wears noninvasive ventilator at night and is on home O2. -tested COVID positive on 12/30 and again on 01/22. CT chest demonstrating interstitial changes along with possible pneumonia and a 9 mm nodular opacity at right lower lobe. This is suggestive pneumonia and the patient will need follow-up CT scan in 1 3 months. she has follow-up with pulmonology as well. -currently on high-flow nasal cannula at 30 L. maintain O2 saturation greater than 92% -BNP elevated to 1800 admission. Surface echo on 01/23 demonstrating EF of 65-70% with grade 1 diastolic dysfunction. IVC with greater than 50% collapse upon inspiration. Unlikely she has acute decompensated heart failure. Lasix started 01/23. Discontinue that. Continue to monitor. -treat bacterial pneumonia with levofloxacin IV. MRSA nares negative so vancomycin DC. Urinary antigens pending. Blood cultures pending. Sputum culture pending -trend inflammatory markers procalcitonin and white count. -considering COPD and possible COVID pneumonia playing a role especially in light of the increased for need of oxygen, continue Decadron and DuoNebs. Severe sepsis without shock -present on admission. Lactate on admission 4.1 and has since cleared. Continue to monitor. Acute on chronic anemia -status post 1 unit PRBC. Continue trending hemoglobin -LDH vitamin B12 and folate pending. -iron panel on admission suggestive of inflammatory anemia Insulin-dependent diabetes mellitus -continue Accu-Cheks with hypoglycemia protocol. -hyperglycemia on admission. Low-dose sliding scale switch to moderate dose. Sinus tachycardia -present on admission. Has since resolved with initiation of low-dose beta-shay at 25 mg p.o. b.i.d.. He is on metoprolol 100 mg p.o. b.i.d. at home. History of hypertension -in the setting of sepsis we are holding off on her home antihypertensives. Been restarted on a low-dose metoprolol in light of sinus tachycardia although the proper treatment for that is to resolve her acute hypoxic respiratory failure. Continue to monitor Chronic PE -restart Eliquis tomorrow if hemoglobin stable. Chronic kidney disease -serum creatinine stable from 2.3-2.6 since admission. No prior values to compare as baseline. She likely has CKD stage 4. This is supported by her home dose of Eliquis at 2.5 mg p.o. b.i.d.. -avoid nephrotoxins if possible FEN: Saline lock IV. GI prophylaxis: Not indicated DVT prophylaxis: SCDs only. Restart Eliquis in a.m.. Lines: Peripheral IV Code Status: DNR Dispo: Stable in IMU. Continue telemetry. Time Spent With Patient Time with patient: 15 - 25 minutes Subjective Date/time seen: 01/26/24 13:02 Interval history: No acute overnight events. The patient reports good breathing. She has no complaints. Review of Systems Review of System
[2024-01-26] MEDS: FUROSEMIDE INJ 40 MG/4 ML VIAL 20 MG IV PUSH (13:36)
--- NOTE | 2024-01-26 16:04 | PC.NURSE ---
Report given to Dr. Deleon the pt is triggering Sepsis with no new intervention at this time
[2024-01-26 16:05] LABS: Glucose Point of Care 336 mg/dl (65-105)
[2024-01-26] MEDS: INSULIN ASPART (*BKC) 100 UNITS/ML SUB-Q ×2 (17:40→21:05)
[2024-01-26 21:13] LABS: Glucose Point of Care 216 mg/dl (65-105)
[2024-01-27] VITALS (24 sets, daily range): BP systolic 122–149; BP diastolic 54–96; PULSE 67–105; RESP 15–22; TEMP 36.2–36.9; O2SAT 92–98
[2024-01-27] MEDS: IPRATROPIUM 0.5 MG/ALBUTEROL SULFATE 2.5 MG AMPUL.NEB 3 ML INHALATION ×4 (02:45→20:44)
[2024-01-27 05:07] LABS: Basophils Percent Auto 0.1 % (0.2-1.2); Eosinophils Percent Auto 0.2 % (0-4.4); Hematocrit 27.7 % (37.0-47.0); Hemoglobin 8.6 g/dL (12.0-15.0); Immature Granulocyte Absolute 0.08 K/mm3 (0.00-0.031); Immature Granulocyte Percent A 0.7 % (0-0.5); Immature Platelet Fraction Pct 4.7 % (0.9-11.2); Lymphocytes Absolute Auto 0.84 K/mm3 (0.9-3.2); Lymphocytes Percent Auto 7.9 % (18.3-44.2); Mean Corpuscular Hemoglobin 29.1 pg (26-34); Mean Corpuscular Volume 93.6 fl (80-100); Mean Platelet Volume 10.6 fl (7.4-10.4); Monocytes Absolute Auto 1.3 K/mm3 (0.1-0.6); Monocytes Percent Auto 11.9 % (2.6-8.5); Neutrophils Absolute Auto 8.5 K/mm3 (1.3-6.7); Neutrophils Percent Auto 79.2 % (45.5-73.1); Platelet Count Result 366 k/mm3 (150-375); Red Blood Count 2.96 M/mm3 (4.2-5.4); Red Cell Distribution Width 13.2 % (11.5-14.5); White Blood Count 10.7 K/mm3 (4.5-10.0)
[2024-01-27 05:18] LABS: Alanine Aminotransferase 12 U/L (6-35); Albumin Level 2.8 g/dL (3.5-5.1); Alkaline Phosphatase 79 U/L (38-126); Anion Gap 2 mmol/L (8-16); Aspartate Amino Transferase 15 U/L (14-36); Bilirubin,Total 0.4 mg/dL (0.2-1.3); Blood Urea Nitrogen 55 mg/dL (7-17); Calcium 7.7 mg/dL (8.4-10.2); Carbon Dioxide 35 mmol/L (22-30); Chloride 96 mmol/L (98-107); Estimated CRCL calculation 16 ml/min; Estimated Glomerular Filt Rate 22; Glucose 131 mg/dL (65-110); Magnesium 1.9 mg/dL (1.6-2.3); Potassium 4.1 mmol/L (3.4-5.0); Sodium 133 mmol/L (137-145)
[2024-01-27 05:31] LABS: Procalcitonin 0.2 ng/mL
[2024-01-27 05:33] LABS: Anisocytosis 1+; Hypochromasia 1+; Platelet Estimate Slightly Increased (Adequate); Schistocytes 1+
[2024-01-27] MEDS: FLUTICASONE/SALMETEROL 115-21 MCG INHALER 1 PUFF 2 PUFF INHALATION ×2 (08:30→20:44)
[2024-01-27 09:30] LABS: Glucose Point of Care 64 mg/dl (65-105)
[2024-01-27 09:30] LABS: Glucose Point of Care 105 mg/dl (65-105)
[2024-01-27] MEDS: dexAMETHasone SOD PHOS INJ 10 MG/ML 1 ML VIAL 6 MG IV PUSH (10:22)
[2024-01-27] MEDS: PANTOPRAZOLE SODIUM IV 40 MG VIAL IV PUSH (10:23)
[2024-01-27] MEDS: METOPROLOL TARTRATE 25 MG TABLET PO ×2 (10:23→21:27)
[2024-01-27] MEDS: levoFLOXacin 500 MG/D5W 100 ML 500 MG/100 ML BAG 100 MG IVPB (10:28)
--- NOTE | 2024-01-27 12:07 | PM.IMPN ---
Progress Note: A&P Assessment and Plan (1) Anemia: Code(s): D64.9 - Anemia, unspecified Status: Acute (2) Chronic pulmonary embolism: Code(s): I27.82 - Chronic pulmonary embolism Status: Acute (3) Acute and chronic respiratory failure: Code(s): J96.20 - Acute and chronic respiratory failure, unspecified whether with hypoxia or hypercapnia Status: Acute (4) Pneumonia: Code(s): J18.9 - Pneumonia, unspecified organism Status: Acute Plan 73-year-old female with past medical history of CKD, cirrhosis, hypertension, COPD with chronic respiratory failure use of noninvasive ventilator at night, chronic PE, insulin-dependent diabetes mellitus, hyperlipidemia, anemia presents on 01/23/2024 with worsening shortness of breath. Admitted for further eval and workup of sepsis, suspected bacterial pneumonia, and COVID-19. Acute on chronic respiratory failure -chronic COPD. She wears noninvasive ventilator at night and is on home O2. -tested COVID positive on 12/30 and again on 01/22. CT chest demonstrating interstitial changes along with possible pneumonia and a 9 mm nodular opacity at right lower lobe. This is suggestive pneumonia and the patient will need follow-up CT scan in 1 3 months. she has follow-up with pulmonology as well. -currently on high-flow nasal cannula at 30 L. maintain O2 saturation greater than 92% -BNP elevated to 1800 admission. Surface echo on 01/23 demonstrating EF of 65-70% with grade 1 diastolic dysfunction. IVC with greater than 50% collapse upon inspiration. Unlikely she has acute decompensated heart failure. Lasix started 01/23. Discontinue that. Continue to monitor. -treat bacterial pneumonia with levofloxacin IV. MRSA nares negative so vancomycin DC. Urinary antigens pending. Blood cultures pending. Sputum culture pending -trend inflammatory markers procalcitonin and white count. -considering COPD and possible COVID pneumonia playing a role especially in light of the increased for need of oxygen, continue Decadron and DuoNebs. -on 01/25 she is status post Lasix 20 mg IV x1. Serum creatinine increased. Will give another 1 time dose today. Diurese judiciously Severe sepsis without shock -present on admission. Lactate on admission 4.1 and has since cleared. Continue to monitor. Acute on chronic anemia -status post 1 unit PRBC. Continue trending hemoglobin -LDH vitamin B12 and folate pending. -iron panel on admission suggestive of inflammatory anemia Insulin-dependent diabetes mellitus -continue Accu-Cheks with hypoglycemia protocol. -hyperglycemia on admission. Low-dose sliding scale switch to moderate dose. Sinus tachycardia -present on admission. Has since resolved with initiation of low-dose beta-shay at 25 mg p.o. b.i.d.. She is on metoprolol 100 mg p.o. b.i.d. at home. History of hypertension -in the setting of sepsis we are holding off on her home antihypertensives. Been restarted on a low-dose metoprolol in light of sinus tachycardia although the proper treatment for that is to resolve her acute hypoxic respiratory failure. Continue to monitor Chronic PE -restart Eliquis today. Chronic kidney disease -serum creatinine stable from 2.3-2.6 since admission. No prior values to compare as baseline. She likely has CKD stage 4. This is supported by her home dose of Eliquis at 2.5 mg p.o. b.i.d. -avoid nephrotoxins if possible FEN: Saline lock IV. Heart healthy diabetic consistent diet GI prophylaxis: Not indicated DVT prophylaxis: Continue Eliquis Lines: Peripheral IV Code Status: DNR Dispo: Stable in IMU. Continue telemetry. Time Spent With Patient Time with patient: 15 - 25 minutes Subjective Date/time seen: 01/27/24 12:07 Interval history: No acute overnight events. Patient believe she has good breathing. She is up sitting in bed rate to eat. Reported by nursing patient is desaturating when eating. Review of Systems Revi
[2024-01-27 12:31] LABS: Glucose Point of Care 150 mg/dl (65-105)
[2024-01-27] MEDS: FUROSEMIDE INJ 40 MG/4 ML VIAL 20 MG IV PUSH (14:34)
[2024-01-27 16:17] LABS: Glucose Point of Care 273 mg/dl (65-105)
[2024-01-27] MEDS: INSULIN ASPART (*BKC) 100 UNITS/ML SUB-Q ×2 (18:02→21:28)
--- NOTE | 2024-01-27 19:54 | PC.NURSE ---
Entry delayed due to Pt care. Sepsis trigger reviewed with no Dr Deleon with no changes made to the plan of care at the time of review
[2024-01-27 20:46] LABS: Glucose Point of Care 207 mg/dl (65-105)
[2024-01-27] MEDS: APIXABAN 2.5 MG TABLET PO (21:27)
[2024-01-27 21:56] LABS: Pneumococcal Antigen Urine Not Detected (Not Detected)
[2024-01-27 23:47] LABS: Legionella pneumophila Ag Ur Not Detected (Not Detected)
[2024-01-28] VITALS (27 sets, daily range): BP systolic 134–155; BP diastolic 54–69; PULSE 72–116; RESP 15–24; TEMP 35.8–37; O2SAT 92–100
[2024-01-28] MEDS: IPRATROPIUM 0.5 MG/ALBUTEROL SULFATE 2.5 MG AMPUL.NEB 3 ML INHALATION ×4 (02:06→20:54)
[2024-01-28 05:12] LABS: Eosinophils Percent Auto 0.2 % (0-4.4); Hematocrit 28.2 % (37.0-47.0); Hemoglobin 8.8 g/dL (12.0-15.0); Lymphocytes Absolute Auto 0.72 K/mm3 (0.9-3.2); Lymphocytes Percent Auto 7.2 % (18.3-44.2); Mean Corpuscular HGB Conc 31.2 g/dl (32-36); Mean Corpuscular Hemoglobin 29.3 pg (26-34); Monocytes Absolute Auto 0.9 K/mm3 (0.1-0.6); Neutrophils Absolute Auto 8.2 K/mm3 (1.3-6.7); Neutrophils Percent Auto 82.6 % (45.5-73.1); Platelet Count Result 409 k/mm3 (150-375)
[2024-01-28 05:25] LABS: Alanine Aminotransferase 12 U/L (6-35); Albumin Level 2.7 g/dL (3.5-5.1); Alkaline Phosphatase 77 U/L (38-126); Anion Gap 3 mmol/L (8-16); Aspartate Amino Transferase 15 U/L (14-36); Bilirubin,Total 0.4 mg/dL (0.2-1.3); Blood Urea Nitrogen 57 mg/dL (7-17); Calcium 7.8 mg/dL (8.4-10.2); Carbon Dioxide 33 mmol/L (22-30); Chloride 97 mmol/L (98-107); Estimated CRCL calculation 15 ml/min; Estimated Glomerular Filt Rate 20; Glucose 120 mg/dL (65-110); Magnesium 1.7 mg/dL (1.6-2.3); Potassium 4.2 mmol/L (3.4-5.0); Sodium 133 mmol/L (137-145)
[2024-01-28] MEDS: FLUTICASONE/SALMETEROL 115-21 MCG INHALER 1 PUFF 2 PUFF INHALATION ×2 (08:04→20:56)
--- NOTE | 2024-01-28 08:06 | PM.IMPN ---
Progress Note: A&P Assessment and Plan (1) Anemia: Code(s): D64.9 - Anemia, unspecified Status: Acute (2) Chronic pulmonary embolism: Code(s): I27.82 - Chronic pulmonary embolism Status: Acute (3) Acute and chronic respiratory failure: Code(s): J96.20 - Acute and chronic respiratory failure, unspecified whether with hypoxia or hypercapnia Status: Acute (4) Pneumonia: Code(s): J18.9 - Pneumonia, unspecified organism Status: Acute Plan 73-year-old female with past medical history of CKD, cirrhosis, hypertension, COPD with chronic respiratory failure use of noninvasive ventilator at night although noncompliant, chronic PE on apixaban, insulin-dependent diabetes mellitus, hyperlipidemia, anemia presents on 01/23/2024 with worsening shortness of breath. Admitted for further eval and workup of sepsis, suspected bacterial pneumonia, and COVID-19. Acute on chronic respiratory failure -chronic COPD. She wears noninvasive ventilator at night and is on home O2 although she is noncompliant. -tested COVID positive on 12/30 and again on 01/22. CT chest demonstrating interstitial changes along with possible pneumonia and a 9 mm nodular opacity at right lower lobe. This is suggestive pneumonia and the patient will need follow-up CT scan in 1-3 months. she has follow-up with pulmonology as well. -BNP elevated to 1800 admission. Surface echo on 01/23 demonstrating EF of 65-70% with grade 1 diastolic dysfunction. IVC with greater than 50% collapse upon inspiration. Unlikely she has acute decompensated heart failure. She was given a few doses of Lasix. -treat bacterial pneumonia with levofloxacin IV. MRSA nares negative so vancomycin has been discontinued. Her COVID test was positive long before admission although considering her COPD Decadron was started. Continue DuoNeb scheduled as well. -she is stable but still on high-flow nasal cannula. Consult pulmonology. Complete viral respiratory pathogen panel ordered. Severe sepsis without shock -present on admission. Lactate on admission 4.1 and has since cleared. Continue to monitor. Acute on chronic anemia -stable hemoglobin status post 1 unit PRBC. -LDH vitamin B12 and folate all within normal limits. -iron panel on admission suggestive of inflammatory anemia Insulin-dependent diabetes mellitus -continue Accu-Cheks with hypoglycemia protocol. -she has had hyperglycemia. Dose insulin sliding scale switch to moderate dose. Lantus 8 units q.h.s. started on 01/27, consider to wean this down Decadron is discontinued. Sinus tachycardia -present on admission. Has since resolved with initiation of low-dose beta-shay at 25 mg p.o. b.i.d.. She is on metoprolol 100 mg p.o. b.i.d. at home. History of hypertension -in the setting of sepsis we are holding off on her home antihypertensives. restarted on a low-dose metoprolol in light of sinus tachycardia although the proper treatment for that is to resolve her acute hypoxic respiratory failure. Continue to monitor Chronic PE -Eliquis restarted on 01/26 Chronic kidney disease -serum creatinine stable from 2.3-2.6 since admission. No prior values to compare as baseline. She likely has CKD stage 4. -avoid nephrotoxins if possible FEN: Saline lock IV. Heart healthy diabetic consistent diet GI prophylaxis: Protonix 40 mg q.a.m. DVT prophylaxis: Continue Eliquis Lines: Peripheral IV Code Status: DNR Dispo: Stable in IMU. Continue telemetry. Pulmonology consult requested. PT OT consulted Time Spent With Patient Time with patient: 15 - 25 minutes Subjective Date/time seen: 01/28/24 08:06 Interval history: No acute overnight events. Patient reports her breathing is better today. She denies cough or sputum production. Review of Systems Review of Systems: All systems reviewed & are unremarkable except as noted in HPI and below (Subjective) Exam Const: General: comfortable and no a
[2024-01-28 08:28] LABS: Glucose Point of Care 60 mg/dl (65-105)
[2024-01-28 09:10] LABS: Glucose Point of Care 80 mg/dl (65-105)
[2024-01-28] MEDS: PANTOPRAZOLE SODIUM IV 40 MG VIAL IV PUSH (09:16)
[2024-01-28] MEDS: METOPROLOL TARTRATE 25 MG TABLET PO ×2 (09:16→21:08)
[2024-01-28] MEDS: dexAMETHasone SOD PHOS INJ 10 MG/ML 1 ML VIAL 6 MG IV PUSH (09:16)
[2024-01-28] MEDS: APIXABAN 2.5 MG TABLET PO ×2 (09:16→21:08)
[2024-01-28 11:50] LABS: Glucose Point of Care 193 mg/dl (65-105)
[2024-01-28 16:32] LABS: Glucose Point of Care 303 mg/dl (65-105)
[2024-01-28] MEDS: INSULIN ASPART (*BKC) 100 UNITS/ML SUB-Q (17:00)
[2024-01-28] MEDS: INSULIN GLARGINE (*BKC) 100 UNITS/ML 8 UNITS SUB-Q (21:10)
[2024-01-28 21:11] LABS: Glucose Point of Care 152 mg/dl (65-105)
[2024-01-29] VITALS (29 sets, daily range): BP systolic 132–139; BP diastolic 54–72; PULSE 73–98; RESP 15–26; TEMP 36.2–36.6; O2SAT 94–100
[2024-01-29] MEDS: IPRATROPIUM 0.5 MG/ALBUTEROL SULFATE 2.5 MG AMPUL.NEB 3 ML INHALATION ×4 (03:21→20:30)
[2024-01-29 05:16] LABS: Basophils Percent Auto 0.2 % (0.2-1.2); Eosinophils Absolute Auto 0.1 K/mm3 (0-0.3); Eosinophils Percent Auto 0.8 % (0-4.4); Hematocrit 27.6 % (37.0-47.0); Hemoglobin 8.7 g/dL (12.0-15.0); Immature Granulocyte Absolute 0.21 K/mm3 (0.00-0.031); Immature Granulocyte Percent A 1.6 % (0-0.5); Lymphocytes Absolute Auto 0.99 K/mm3 (0.9-3.2); Lymphocytes Percent Auto 7.6 % (18.3-44.2); Mean Corpuscular HGB Conc 31.5 g/dl (32-36); Mean Corpuscular Volume 95.2 fl (80-100); Mean Platelet Volume 9.7 fl (7.4-10.4); Monocytes Absolute Auto 1.3 K/mm3 (0.1-0.6); Monocytes Percent Auto 10.1 % (2.6-8.5); Neutrophils Absolute Auto 10.4 K/mm3 (1.3-6.7); Neutrophils Percent Auto 79.7 % (45.5-73.1); Platelet Count Result 419 k/mm3 (150-375); Red Cell Distribution Width 13.2 % (11.5-14.5); White Blood Count 13.1 K/mm3 (4.5-10.0)
[2024-01-29 05:41] LABS: Alanine Aminotransferase 11 U/L (6-35); Albumin Level 2.8 g/dL (3.5-5.1); Alkaline Phosphatase 78 U/L (38-126); Anion Gap 1 mmol/L (8-16); Aspartate Amino Transferase 13 U/L (14-36); Bilirubin,Total 0.3 mg/dL (0.2-1.3); Blood Urea Nitrogen 57 mg/dL (7-17); CRP 1.5 mg/dL (<1.0); Carbon Dioxide 33 mmol/L (22-30); Chloride 100 mmol/L (98-107); Estimated CRCL calculation 14 ml/min; Estimated Glomerular Filt Rate 19; Glucose 92 mg/dL (65-110); Magnesium 1.7 mg/dL (1.6-2.3); Potassium 4.2 mmol/L (3.4-5.0); Sodium 134 mmol/L (137-145)
[2024-01-29 05:43] LABS: Procalcitonin 0.1 ng/mL
[2024-01-29 07:35] LABS: Haptoglobin 448 mg/dL (43-212)
[2024-01-29 09:14] LABS: Glucose Point of Care 99 mg/dl (65-105)
[2024-01-29] MEDS: FLUTICASONE/SALMETEROL 115-21 MCG INHALER 1 PUFF 2 PUFF INHALATION ×2 (09:35→20:31)
[2024-01-29] MEDS: PANTOPRAZOLE SODIUM IV 40 MG VIAL IV PUSH (09:45)
[2024-01-29] MEDS: levoFLOXacin 500 MG TABLET PO (09:45)
[2024-01-29] MEDS: METOPROLOL TARTRATE 25 MG TABLET PO ×2 (09:45→21:29)
[2024-01-29] MEDS: dexAMETHasone SOD PHOS INJ 10 MG/ML 1 ML VIAL 6 MG IV PUSH (09:45)
[2024-01-29] MEDS: APIXABAN 2.5 MG TABLET PO ×2 (09:46→21:29)
[2024-01-29 12:31] LABS: Glucose Point of Care 297 mg/dl (65-105)
[2024-01-29] MEDS: INSULIN ASPART (*BKC) 100 UNITS/ML SUB-Q ×2 (12:39→21:29)
--- NOTE | 2024-01-29 13:59 | PM.CNPUL ---
Assessment and Plan Assessment and plan (1) Pneumonia due to COVID-19 virus: Code(s): U07.1 - COVID-19; J12.82 - Pneumonia due to coronavirus disease 2019 Status: Acute Assessment and Plan: Diagnosed 12/30/23, treated with steroids, did not get any remdesivir or other specific anti COVID treatment at [facility]. She had CXR and CT on January 22, infiltrates and effusion, L>R; needs to have repeat CXR. Her CT report at [facility] indicates that she did not have pneumonia when she was there. Her infiltrates are new since this admission; her procalcitonin is negative which argues against a real bacterial pneumonia. She has been on antibiotics this admission, Levaquin was stopped today. I agree with stopping it, her white count is lower than admission, procalcitonin is negative.She had a small pleural effusion onteh left on admision, too small to tap. Consider repeat chest CT to evaluate infiltrates, effusion. Will add Cornet valve, mucolytics to try to improve atelectasis in lingula, move secretions out. Her chest CT at [facility] before this admission says that she had no pneumonia; she had tree-in-bud infiltrates with some activity in the lingula. (2) Acute and chronic respiratory failure: Qualifiers: Respiratory failure complication: hypoxia Qualified Code(s): J96.21 - Acute and chronic respiratory failure with hypoxia Code(s): J96.20 - Acute and chronic respiratory failure, unspecified whether with hypoxia or hypercapnia Status: Acute Assessment and Plan: Patient wears oxygen at home, appears use 3 liters/minute, this was prior to admission at [facility] when she was diagnosed with COVID on 12/30/2023. Currently her oxygen requirement is higher but this is not excessively high requirement for patients with COVID. She was initially diagnosed with COVID a month ago so this is a prolonged episode. In a 73-year-old with underlying lung disease, she does not have a a good prognosis, however her O2 need to not excessive. She does not retain CO2. She (3) History of tobacco abuse: Code(s): Z87.891 - Personal history of nicotine dependence Status: Acute Assessment and Plan: Quit 2012, 40 pack year history (4) COPD (chronic obstructive pulmonary disease): Code(s): J44.9 - Chronic obstructive pulmonary disease, unspecified Status: Acute Assessment and Plan: Extremely severe underlying emphysema, last PFT 2016 the FEV1 was 0.56 L extremely low, DLCO was 25%, appears that she has performed well based on her numbers from prior testing. (5) Chronic pulmonary embolism: Qualifiers: Acute cor pulmonale presence: unspecified Pulmonary embolism type: unspecified Qualified Code(s): I27.82 - Chronic pulmonary embolism Code(s): I27.82 - Chronic pulmonary embolism Status: Acute Assessment and Plan: This is an existing problem, listed on her admission from [facility]; no details about when this happened, extent, prior treatment, provoking factors. (6) Solitary pulmonary nodule: Code(s): R91.1 - Solitary pulmonary nodule Status: Acute Assessment and Plan: Lingula has 1 cm nodule, noted on CT chest [facility] Dec 2023; this will need to be follwed, does not represent an emergent problem that needs a biopsy or other intervention. Plan Add Cornet valve and add Mucomyst Q 6 hours to clear secretions. Repeat CXR in the room. She has COVID, and a portable CXR is easier on her compared to transporting to radiology. Her O2 need is staying around 50%. She ma
[2024-01-29 15:52] LABS: Glucose Point of Care 125 mg/dl (65-105)
--- NOTE | 2024-01-29 18:49 | PM.IMPN ---
Progress Note: A&P Assessment and Plan (1) Anemia: Code(s): D64.9 - Anemia, unspecified Status: Acute (2) Chronic pulmonary embolism: Qualifiers: Pulmonary embolism type: unspecified Acute cor pulmonale presence: unspecified Qualified Code(s): I27.82 - Chronic pulmonary embolism Code(s): I27.82 - Chronic pulmonary embolism Status: Acute (3) Acute and chronic respiratory failure: Qualifiers: Respiratory failure complication: hypoxia Qualified Code(s): J96.21 - Acute and chronic respiratory failure with hypoxia Code(s): J96.20 - Acute and chronic respiratory failure, unspecified whether with hypoxia or hypercapnia Status: Acute (4) Pneumonia: Code(s): J18.9 - Pneumonia, unspecified organism Status: Acute Plan 73-year-old female with past medical history of CKD, cirrhosis, hypertension, COPD with chronic respiratory failure use of noninvasive ventilator at night although noncompliant, chronic PE on apixaban, insulin-dependent diabetes mellitus, hyperlipidemia, anemia presents on 01/23/2024 with worsening shortness of breath. Admitted for further eval and workup of sepsis, suspected bacterial pneumonia, and COVID-19. Acute on chronic respiratory failure -chronic COPD. She wears noninvasive ventilator at night and is on home O2 although she is noncompliant. -tested COVID positive on 12/30 and again on 01/22. CT chest demonstrating interstitial changes along with possible pneumonia and a 9 mm nodular opacity at right lower lobe. This is suggestive pneumonia and the patient will need follow-up CT scan in 1-3 months. she has follow-up with pulmonology as well. -BNP elevated to 1800 admission. Surface echo on 01/23 demonstrating EF of 65-70% with grade 1 diastolic dysfunction. IVC with greater than 50% collapse upon inspiration. Unlikely she has acute decompensated heart failure. She was given a few doses of Lasix. -treat bacterial pneumonia with levofloxacin IV. MRSA nares negative so vancomycin has been discontinued. Her COVID test was positive long before admission although considering her COPD Decadron was started. Continue DuoNeb scheduled as well. -she is stable but still on high-flow nasal cannula. Consult pulmonology. Complete viral respiratory pathogen panel ordered. Follow up with with pulmonary recommendations Severe sepsis without shock -present on admission. Lactate on admission 4.1 and has since cleared. Continue to monitor. Acute on chronic anemia -stable hemoglobin status post 1 unit PRBC. -LDH vitamin B12 and folate all within normal limits. -iron panel on admission suggestive of inflammatory anemia Insulin-dependent diabetes mellitus -continue Accu-Cheks with hypoglycemia protocol. -she has had hyperglycemia. Dose insulin sliding scale switch to moderate dose. Lantus 8 units q.h.s. started on 01/27, consider to wean this down Decadron is discontinued. Sinus tachycardia -present on admission. Has since resolved with initiation of low-dose beta-shay at 25 mg p.o. b.i.d.. She is on metoprolol 100 mg p.o. b.i.d. at home. History of hypertension -in the setting of sepsis we are holding off on her home antihypertensives. restarted on a low-dose metoprolol in light of sinus tachycardia although the proper treatment for that is to resolve her acute hypoxic respiratory failure. Continue to monitor Chronic PE -Eliquis restarted on 01/26 Chronic kidney disease -serum creatinine stable from 2.3-2.6 since admission. No prior values to compare as baseline. She likely has CKD stage 4. -avoid nephrotoxins if possible FEN: Saline lock IV. Heart healthy diabetic consistent diet GI prophylaxis: Protonix 40 mg q.a.m. DVT prophylaxis: Continue Eliquis Lines: Peripheral IV Code Status: DNR Dispo: Stable in IMU. Continue telemetry. Pulmonology consult requested. PT OT consulted ? Patient seen and examined at bedside during my morning rounds
[2024-01-29] MEDS: ACETYLCYSTEINE 20% INHAL SOLN 800 MG/4 ML VIAL 200 MG INHALATION (20:30)
[2024-01-29 20:33] LABS: Glucose Point of Care 294 mg/dl (65-105)
[2024-01-29] MEDS: INSULIN GLARGINE (*BKC) 100 UNITS/ML 8 UNITS SUB-Q (21:29)
[2024-01-30] VITALS (30 sets, daily range): BP systolic 130–175; BP diastolic 47–76; PULSE 73–111; RESP 18–24; TEMP 36–36.8; O2SAT 90–98
[2024-01-30] MEDS: ACETYLCYSTEINE 20% INHAL SOLN 800 MG/4 ML VIAL 200 MG INHALATION ×4 (02:30→20:38)
[2024-01-30] MEDS: IPRATROPIUM 0.5 MG/ALBUTEROL SULFATE 2.5 MG AMPUL.NEB 3 ML INHALATION ×4 (02:31→20:38)
[2024-01-30 04:39] LABS: Basophils Percent Auto 0.3 % (0.2-1.2); Eosinophils Percent Auto 0.3 % (0-4.4); Hematocrit 27.8 % (37.0-47.0); Hemoglobin 8.6 g/dL (12.0-15.0); Immature Granulocyte Absolute 0.28 K/mm3 (0.00-0.031); Immature Granulocyte Percent A 1.9 % (0-0.5); Lymphocytes Absolute Auto 1.01 K/mm3 (0.9-3.2); Lymphocytes Percent Auto 6.8 % (18.3-44.2); Mean Corpuscular HGB Conc 30.9 g/dl (32-36); Mean Corpuscular Hemoglobin 29.3 pg (26-34); Mean Corpuscular Volume 94.6 fl (80-100); Mean Platelet Volume 9.8 fl (7.4-10.4); Monocytes Absolute Auto 1.2 K/mm3 (0.1-0.6); Monocytes Percent Auto 8.1 % (2.6-8.5); Neutrophils Absolute Auto 12.3 K/mm3 (1.3-6.7); Neutrophils Percent Auto 82.6 % (45.5-73.1); Platelet Count Result 467 k/mm3 (150-375); Red Blood Count 2.94 M/mm3 (4.2-5.4); Red Cell Distribution Width 13.5 % (11.5-14.5); White Blood Count 14.9 K/mm3 (4.5-10.0)
[2024-01-30 04:52] LABS: Anion Gap 2 mmol/L (4-12); Blood Urea Nitrogen 62 mg/dL (7-17); Calcium 8.1 mg/dL (8.4-10.2); Carbon Dioxide 34 mmol/L (22-30); Chloride 99 mmol/L (98-107); Estimated CRCL calculation 14 ml/min; Estimated Glomerular Filt Rate 19; Glucose 88 mg/dL (65-110); Magnesium 1.7 mg/dL (1.6-2.3); Phosphorus 3.6 mg/dL (2.5-4.5); Potassium 4.4 mmol/L (3.4-5.0); Sodium 135 mmol/L (137-145)
[2024-01-30 07:40] LABS: Glucose Point of Care 82 mg/dl (65-105)
[2024-01-30] MEDS: FLUTICASONE/SALMETEROL 115-21 MCG INHALER 1 PUFF 2 PUFF INHALATION ×2 (09:02→20:39)
[2024-01-30] MEDS: PANTOPRAZOLE SODIUM IV 40 MG VIAL IV PUSH (09:26)
[2024-01-30] MEDS: dexAMETHasone SOD PHOS INJ 10 MG/ML 1 ML VIAL 4 MG IV PUSH (09:27)
[2024-01-30] MEDS: METOPROLOL TARTRATE 25 MG TABLET PO ×2 (09:27→22:08)
[2024-01-30] MEDS: APIXABAN 2.5 MG TABLET PO ×2 (09:27→22:08)
[2024-01-30] MEDS: dexAMETHasone SOD PHOS INJ 10 MG/ML 1 ML VIAL 6 MG IV PUSH (09:27)
[2024-01-30] MEDS: SODIUM CHLORIDE 0.9% IV 1,000 ML 75 ML IV CONT (10:59)
--- NOTE | 2024-01-30 11:20 | PCNWS ---
Weekly nutritional screen. Patient is tolerating current Diabetic heart healthy diet with adequate intake 75-100% most all meals. No weight loss reported. No nutritional needs at this time.
[2024-01-30 12:18] LABS: Glucose Point of Care 118 mg/dl (65-105)
[2024-01-30] MEDS: INSULIN ASPART (*BKC) 100 UNITS/ML SUB-Q ×2 (16:22→22:08)
[2024-01-30 18:21] LABS: Glucose Point of Care 390 mg/dl (65-105)
--- NOTE | 2024-01-30 20:43 | PM.IMPN ---
Progress Note: A&P Assessment and Plan (1) Anemia: Code(s): D64.9 - Anemia, unspecified Status: Acute (2) Chronic pulmonary embolism: Qualifiers: Pulmonary embolism type: unspecified Acute cor pulmonale presence: unspecified Qualified Code(s): I27.82 - Chronic pulmonary embolism Code(s): I27.82 - Chronic pulmonary embolism Status: Acute (3) Acute and chronic respiratory failure: Qualifiers: Respiratory failure complication: hypoxia Qualified Code(s): J96.21 - Acute and chronic respiratory failure with hypoxia Code(s): J96.20 - Acute and chronic respiratory failure, unspecified whether with hypoxia or hypercapnia Status: Acute (4) Pneumonia: Code(s): J18.9 - Pneumonia, unspecified organism Status: Acute Plan 73-year-old female with past medical history of CKD, cirrhosis, hypertension, COPD with chronic respiratory failure use of noninvasive ventilator at night although noncompliant, chronic PE on apixaban, insulin-dependent diabetes mellitus, hyperlipidemia, anemia presents on 01/23/2024 with worsening shortness of breath. Admitted for further eval and workup of sepsis, suspected bacterial pneumonia, and COVID-19. Acute on chronic respiratory failure -chronic COPD. She wears noninvasive ventilator at night and is on home O2 although she is noncompliant. -tested COVID positive on 12/30 and again on 01/22. CT chest demonstrating interstitial changes along with possible pneumonia and a 9 mm nodular opacity at right lower lobe. This is suggestive pneumonia and the patient will need follow-up CT scan in 1-3 months. she has follow-up with pulmonology as well. -BNP elevated to 1800 admission. Surface echo on 01/23 demonstrating EF of 65-70% with grade 1 diastolic dysfunction. IVC with greater than 50% collapse upon inspiration. Unlikely she has acute decompensated heart failure. She was given a few doses of Lasix. -treat bacterial pneumonia with levofloxacin IV. MRSA nares negative so vancomycin has been discontinued. Her COVID test was positive long before admission although considering her COPD Decadron was started. Continue DuoNeb scheduled as well. -she is stable but still on high-flow nasal cannula. Consult pulmonology. Complete viral respiratory pathogen panel ordered. Follow up with with pulmonary recommendations -attempt weaning patient off high-flow oxygen keeping O2 sats around 94% Severe sepsis without shock -present on admission. Lactate on admission 4.1 and has since cleared. Continue to monitor. Acute on chronic anemia -stable hemoglobin status post 1 unit PRBC. -LDH vitamin B12 and folate all within normal limits. -iron panel on admission suggestive of inflammatory anemia Insulin-dependent diabetes mellitus -continue Accu-Cheks with hypoglycemia protocol. -she has had hyperglycemia. Dose insulin sliding scale switch to moderate dose. Lantus 8 units q.h.s. started on 01/27, consider to wean this down Decadron is discontinued. Sinus tachycardia -present on admission. Has since resolved with initiation of low-dose beta-shay at 25 mg p.o. b.i.d.. She is on metoprolol 100 mg p.o. b.i.d. at home. History of hypertension -in the setting of sepsis we are holding off on her home antihypertensives. restarted on a low-dose metoprolol in light of sinus tachycardia although the proper treatment for that is to resolve her acute hypoxic respiratory failure. Continue to monitor Chronic PE -Eliquis restarted on 01/26 Mild leukocytosis -likely secondary to IV dexamethasone day 7 of 10 -monitor WBC count closely Chronic kidney disease -serum creatinine stable from 2.3-2.6 since admission. No prior values to compare as baseline. She likely has CKD stage 4. -avoid nephrotoxins if possible -Gentle IV hydration ordered with normal saline at 75 cc/hour for 1000cc -Strict input and output monitoring -Monitor renal functions closely FEN: Saline lock IV.
[2024-01-30 21:39] LABS: Glucose Point of Care 310 mg/dl (65-105)
[2024-01-30] MEDS: INSULIN GLARGINE (*BKC) 100 UNITS/ML 8 UNITS SUB-Q (22:08)
[2024-01-31] VITALS (25 sets, daily range): BP systolic 127–141; BP diastolic 48–63; PULSE 68–108; RESP 18–24; TEMP 36.1–37.1; O2SAT 92–100
[2024-01-31] MEDS: IPRATROPIUM 0.5 MG/ALBUTEROL SULFATE 2.5 MG AMPUL.NEB 3 ML INHALATION ×4 (02:55→20:35)
[2024-01-31] MEDS: ACETYLCYSTEINE 20% INHAL SOLN 800 MG/4 ML VIAL 200 MG INHALATION ×4 (02:55→20:35)
[2024-01-31 05:07] LABS: Basophils Absolute Auto 0.1 K/mm3 (0.0-0.1); Basophils Percent Auto 0.4 % (0.2-1.2); Eosinophils Percent Auto 0.2 % (0-4.4); Hematocrit 29.6 % (37.0-47.0); Hemoglobin 8.9 g/dL (12.0-15.0); Immature Granulocyte Absolute 0.45 K/mm3 (0.00-0.031); Lymphocytes Absolute Auto 0.94 K/mm3 (0.9-3.2); Lymphocytes Percent Auto 6.2 % (18.3-44.2); Mean Corpuscular HGB Conc 30.1 g/dl (32-36); Mean Corpuscular Volume 96.4 fl (80-100); Mean Platelet Volume 9.4 fl (7.4-10.4); Monocytes Absolute Auto 1.2 K/mm3 (0.1-0.6); Monocytes Percent Auto 7.9 % (2.6-8.5); Neutrophils Absolute Auto 12.5 K/mm3 (1.3-6.7); Neutrophils Percent Auto 82.3 % (45.5-73.1); Platelet Count Result 499 k/mm3 (150-375); Red Blood Count 3.07 M/mm3 (4.2-5.4); Red Cell Distribution Width 13.6 % (11.5-14.5); White Blood Count 15.1 K/mm3 (4.5-10.0)
[2024-01-31 05:29] LABS: Anion Gap 1 mmol/L (4-12); Blood Urea Nitrogen 61 mg/dL (7-17); Calcium 8.3 mg/dL (8.4-10.2); Carbon Dioxide 31 mmol/L (22-30); Chloride 102 mmol/L (98-107); Estimated CRCL calculation 12 ml/min; Estimated Glomerular Filt Rate 16; Glucose 148 mg/dL (65-110); Potassium 4.5 mmol/L (3.4-5.0); Sodium 134 mmol/L (137-145)
[2024-01-31] MEDS: FLUTICASONE/SALMETEROL 115-21 MCG INHALER 1 PUFF 2 PUFF INHALATION ×2 (08:05→20:35)
[2024-01-31 08:38] LABS: Glucose Point of Care 77 mg/dl (65-105)
[2024-01-31] MEDS: PANTOPRAZOLE SODIUM IV 40 MG VIAL IV PUSH (09:05)
[2024-01-31] MEDS: dexAMETHasone SOD PHOS INJ 10 MG/ML 1 ML VIAL 6 MG IV PUSH (09:06)
[2024-01-31] MEDS: APIXABAN 2.5 MG TABLET PO ×2 (09:07→20:46)
[2024-01-31] MEDS: METOPROLOL TARTRATE 25 MG TABLET PO ×2 (09:07→20:15)
[2024-01-31 12:01] LABS: Glucose Point of Care 135 mg/dl (65-105)
--- NOTE | 2024-01-31 13:27 | PM.CNNEP ---
Assessment and Plan Assessment and plan (1) CKD (chronic kidney disease) stage 4, GFR 15-29 ml/min: Code(s): N18.4 - Chronic kidney disease, stage 4 (severe) Status: Acute Assessment and Plan: The patient has an elevated creatinine. She is said to have chronic kidney disease stage 4. Will try to get some records from her primary care. Her creatinine seems to range at around 2-2.5 but the last couple of days it is risen. The patient seems to be eating okay. She is not on diuretics. Sugars seem well controlled. She has COVID which can cause kidney disease, but usually if it gets better the kidney disease gets better. Dexamethasone can make the BUN rise but not usually the creatinine. Sometimes antibiotics can make the creatinine rise. However she does not have a rash. At this point will check a urinalysis, urine electrolytes, renal ultrasound, CBC with differential, and a CK and will go from there. (2) COPD (chronic obstructive pulmonary disease): Code(s): J44.9 - Chronic obstructive pulmonary disease, unspecified Status: Acute Assessment and Plan: The patient is getting supportive care (3) DM2 (diabetes mellitus, type 2): Code(s): E11.9 - Type 2 diabetes mellitus without complications Status: Acute Assessment and Plan: The patient is on Accu-Chek and sliding scale insulin (4) Pneumonia due to COVID-19 virus: Code(s): U07.1 - COVID-19; J12.82 - Pneumonia due to coronavirus disease 2019 Status: Acute Assessment and Plan: The patient is getting supportive care for this. History of Present Illness Reason for Consult Consult date: 01/31/24 Chief Complaint Chief complaint: pneumonia/chf History of Present Illness Narrative: Nelsy is a very pleasant 73-year-old lady who has multiple medical problems including congestive heart failure, chronic pulmonary embolism, cirrhosis, chronic respiratory failure, SVT, solitary pulmonary nodule, hyperlipidemia, GERD, diabetes, and CKD stage 4. The patient came in the hospital because of shortness of breath. She came over from [place] because of shortness of breath. Chest x-ray showed pneumonia. She had a DuoNeb which did not improve much. She received oxygen. The patient was tested for COVID and was positive so she is on isolation. On admission her creatinine was 2.3. This zahra to 2.6 then fell to 2.2 and now is up to 2.9 so renal consultation was requested. Patient does remember having any kidney disease. I told that she had a diagnosis of chronic kidney disease and she told me that she does not see a kidney doctor as an outpatient. He cannot remember the name of her primary care physician. She denies any bloody urine, foamy urine, kidney stones, or bladder infections. No pain with urination. She denies any skin rash, swelling, bloody sputum or bloody nasal drainage. She has no joint pains that are new. Review of Systems Constitutional: Constitutional: Reports no additional constitutional complaints Eyes: Eyes: Reports no additional eye complaints ENT: Reports system reviewed and no additional complaints, except as documented Cardiovascular: Cardiovascular: Reports no additional cardiovascular complaints Respiratory: Respiratory: Reports no additional respiratory complaints Gastrointestinal: Gastrointestinal: Reports no additional gastrointestinal complaints Genitourinary: Genitourinary: Reports no additional female genitourinary complaints Musculoskeletal: Musculoskeletal: Reports no additional musculoskeletal complaints Integumentary/Breasts: Skin/Breast: Reports system reviewed and no additional complaints, except as docu Neurologic: Reports system reviewed and no additional complaints, except as documented Psychiatric: Psychiatric: Reports no additional psychiatric complaints Endocrine: Endocrine: Reports no additional endocrine complaints PMFSH Past Medical History Me
[2024-01-31 13:54] LABS: Creatine Kinase 35 U/L (30-135)
[2024-01-31] MEDS: INSULIN ASPART (*BKC) 100 UNITS/ML SUB-Q ×2 (17:06→20:18)
[2024-01-31 17:09] LABS: Glucose Point of Care 216 mg/dl (65-105)
--- NOTE | 2024-01-31 18:26 | PM.IMPN ---
Progress Note: A&P Assessment and Plan (1) Anemia: Code(s): D64.9 - Anemia, unspecified Status: Acute (2) Chronic pulmonary embolism: Qualifiers: Pulmonary embolism type: unspecified Acute cor pulmonale presence: unspecified Qualified Code(s): I27.82 - Chronic pulmonary embolism Code(s): I27.82 - Chronic pulmonary embolism Status: Acute (3) Acute and chronic respiratory failure: Qualifiers: Respiratory failure complication: hypoxia Qualified Code(s): J96.21 - Acute and chronic respiratory failure with hypoxia Code(s): J96.20 - Acute and chronic respiratory failure, unspecified whether with hypoxia or hypercapnia Status: Acute (4) Pneumonia: Code(s): J18.9 - Pneumonia, unspecified organism Status: Acute Plan 73-year-old female with past medical history of CKD, cirrhosis, hypertension, COPD with chronic respiratory failure use of noninvasive ventilator at night although noncompliant, chronic PE on apixaban, insulin-dependent diabetes mellitus, hyperlipidemia, anemia presents on 01/23/2024 with worsening shortness of breath. Admitted for further eval and workup of sepsis, suspected bacterial pneumonia, and COVID-19. Acute on chronic respiratory failure -chronic COPD. She wears noninvasive ventilator at night and is on home O2 although she is noncompliant. -tested COVID positive on 12/30 and again on 01/22. CT chest demonstrating interstitial changes along with possible pneumonia and a 9 mm nodular opacity at right lower lobe. This is suggestive pneumonia and the patient will need follow-up CT scan in 1-3 months. she has follow-up with pulmonology as well. -BNP elevated to 1800 admission. Surface echo on 01/23 demonstrating EF of 65-70% with grade 1 diastolic dysfunction. IVC with greater than 50% collapse upon inspiration. Unlikely she has acute decompensated heart failure. She was given a few doses of Lasix. -treat bacterial pneumonia with levofloxacin IV. MRSA nares negative so vancomycin has been discontinued. Her COVID test was positive long before admission although considering her COPD Decadron was started. Continue DuoNeb scheduled as well. -she is stable but still on high-flow nasal cannula. Consult pulmonology. Complete viral respiratory pathogen panel ordered. Follow up with with pulmonary recommendations -attempt weaning patient off high-flow oxygen keeping O2 sats around 94% -goal is to keep patient's oxygen around 6 liters/minute for discharge to [facility] Severe sepsis without shock -present on admission. Lactate on admission 4.1 and has since cleared. Continue to monitor. Acute on chronic anemia -stable hemoglobin status post 1 unit PRBC. -LDH vitamin B12 and folate all within normal limits. -iron panel on admission suggestive of inflammatory anemia Insulin-dependent diabetes mellitus -continue Accu-Cheks with hypoglycemia protocol. -she has had hyperglycemia. Dose insulin sliding scale switch to moderate dose. Lantus 8 units q.h.s. started on 01/27, consider to wean this down Decadron is discontinued. Sinus tachycardia -present on admission. Has since resolved with initiation of low-dose beta-shay at 25 mg p.o. b.i.d.. She is on metoprolol 100 mg p.o. b.i.d. at home. History of hypertension -in the setting of sepsis we are holding off on her home antihypertensives. restarted on a low-dose metoprolol in light of sinus tachycardia although the proper treatment for that is to resolve her acute hypoxic respiratory failure. Continue to monitor Chronic PE -Eliquis restarted on 01/26 Mild leukocytosis -likely secondary to IV dexamethasone day 7 of 10 -monitor WBC count closely -WBCs 15.1 today Chronic kidney disease -serum creatinine stable from 2.3-2.6 since admission. No prior values to compare as baseline. She likely has CKD stage 4. -avoid nephrotoxins if possible -Gentle IV hydration ordered with normal saline at
[2024-01-31 20:09] LABS: Glucose Point of Care 234 mg/dl (65-105)
[2024-01-31] MEDS: INSULIN GLARGINE (*BKC) 100 UNITS/ML 8 UNITS SUB-Q (20:15)
[2024-02-01] VITALS (22 sets, daily range): BP systolic 124–152; BP diastolic 49–79; PULSE 76–107; RESP 14–20; TEMP 36.1–37.3; O2SAT 90–100
[2024-02-01] MEDS: ACETYLCYSTEINE 20% INHAL SOLN 800 MG/4 ML VIAL 200 MG INHALATION ×4 (02:51→20:36)
[2024-02-01] MEDS: IPRATROPIUM 0.5 MG/ALBUTEROL SULFATE 2.5 MG AMPUL.NEB 3 ML INHALATION ×4 (02:52→20:35)
[2024-02-01 04:51] LABS: Basophils Absolute Auto 0.1 K/mm3 (0.0-0.1); Basophils Percent Auto 0.3 % (0.2-1.2); Eosinophils Absolute Auto 0.1 K/mm3 (0-0.3); Eosinophils Percent Auto 0.7 % (0-4.4); Hematocrit 28.4 % (37.0-47.0); Hemoglobin 8.9 g/dL (12.0-15.0); Immature Granulocyte Absolute 0.58 K/mm3 (0.00-0.031); Immature Granulocyte Percent A 3.3 % (0-0.5); Lymphocytes Absolute Auto 1.51 K/mm3 (0.9-3.2); Lymphocytes Percent Auto 8.7 % (18.3-44.2); Mean Corpuscular HGB Conc 31.3 g/dl (32-36); Mean Corpuscular Hemoglobin 29.7 pg (26-34); Mean Corpuscular Volume 94.7 fl (80-100); Mean Platelet Volume 9.4 fl (7.4-10.4); Monocytes Absolute Auto 1.5 K/mm3 (0.1-0.6); Monocytes Percent Auto 8.5 % (2.6-8.5); Neutrophils Absolute Auto 13.6 K/mm3 (1.3-6.7); Neutrophils Percent Auto 78.5 % (45.5-73.1); Platelet Count Result 546 k/mm3 (150-375); Red Cell Distribution Width 13.8 % (11.5-14.5); White Blood Count 17.4 K/mm3 (4.5-10.0)
[2024-02-01 05:01] LABS: Albumin Level 2.8 g/dL (3.5-5.1); Anion Gap 5 mmol/L (4-12); Blood Urea Nitrogen 65 mg/dL (7-17); Calcium 8.2 mg/dL (8.4-10.2); Carbon Dioxide 29 mmol/L (22-30); Chloride 103 mmol/L (98-107); Estimated CRCL calculation 15 ml/min; Estimated Glomerular Filt Rate 20; Glucose 74 mg/dL (65-110); Phosphorus 4.6 mg/dL (2.5-4.5); Potassium 4.3 mmol/L (3.4-5.0); Sodium 137 mmol/L (137-145)
[2024-02-01 07:41] LABS: Glucose Point of Care 127 mg/dl (65-105)
[2024-02-01] MEDS: FLUTICASONE/SALMETEROL 115-21 MCG INHALER 1 PUFF 2 PUFF INHALATION ×2 (08:27→20:36)
[2024-02-01] MEDS: APIXABAN 2.5 MG TABLET PO ×2 (09:46→21:02)
[2024-02-01] MEDS: METOPROLOL TARTRATE 25 MG TABLET PO ×2 (09:46→21:01)
[2024-02-01] MEDS: PANTOPRAZOLE SODIUM IV 40 MG VIAL IV PUSH (09:47)
[2024-02-01] MEDS: dexAMETHasone SOD PHOS INJ 10 MG/ML 1 ML VIAL 6 MG IV PUSH (09:47)
--- NOTE | 2024-02-01 10:09 | PM.PNNEP ---
Progress Note: A&P Assessment and Plan (1) CKD (chronic kidney disease) stage 4, GFR 15-29 ml/min: Code(s): N18.4 - Chronic kidney disease, stage 4 (severe) Status: Acute Assessment and Plan: The patient has an elevated creatinine. She is said to have chronic kidney disease stage 4. Will try to get some records from her primary care. Urine tests not done CK is normal Ultrasound shows atrophy of the left kidney Eating and drinking okay. Creatinine came down Will check another lab tomorrow (2) COPD (chronic obstructive pulmonary disease): Code(s): J44.9 - Chronic obstructive pulmonary disease, unspecified Status: Acute Assessment and Plan: The patient is getting supportive care (3) DM2 (diabetes mellitus, type 2): Code(s): E11.9 - Type 2 diabetes mellitus without complications Status: Acute Assessment and Plan: The patient is on Accu-Chek and sliding scale insulin (4) Pneumonia due to COVID-19 virus: Code(s): U07.1 - COVID-19; J12.82 - Pneumonia due to coronavirus disease 2019 Status: Acute Assessment and Plan: The patient is getting supportive care for this. Subjective Date/time seen: 02/01/24 10:09 Interval history: Alert. Still on oxygen. Cough better Review of Systems Cardiovascular: Cardiovascular: Reports no additional cardiovascular complaints Respiratory: Respiratory: Reports no additional respiratory complaints Gastrointestinal: Gastrointestinal: Reports no additional gastrointestinal complaints Genitourinary: Genitourinary: Reports no additional female genitourinary complaints Exam Narrative: WDWN in NAD skin no rash or subQ not head ncat lungs clear cor reg no rub or gallop abd BS+ nontender and soft ext no edema. Objective Data Vital Signs Vital Signs: Vital Signs - 24 hr 01/31/24 12:02 01/31/24 12:00 01/31/24 13:49 Temperature 97.3 F L Pulse Rate 78 68 79 Respiratory Rate 18 Blood Pressure 130/63 Pulse Oximetry 98 96 Oxygen Delivery High Flow Nasal Cannula Oxygen Flow Rate 6 01/31/24 13:49 01/31/24 14:00 01/31/24 12:00 Temperature Pulse Rate 79 92 Respiratory Rate 20 20 Blood Pressure Pulse Oximetry 95 Oxygen Delivery High Flow Nasal Cannula Oxygen Flow Rate 6 01/31/24 14:00 01/31/24 16:08 01/31/24 16:00 Temperature 98.7 F Pulse Rate 78 76 95 Respiratory Rate 20 Blood Pressure 127/63 Pulse Oximetry 95 Oxygen Delivery Oxygen Flow Rate 01/31/24 18:00 01/31/24 16:00 01/31/24 20:00 Temperature 97 F L Pulse Rate 91 80 Respiratory Rate 20 Blood Pressure 135/59 L Pulse Oximetry 92 96 Oxygen Delivery High Flow Nasal Cannula Oxygen Flow Rate 5 01/31/24 20:15 01/31/24 20:00 01/31/24 20:00 Temperature Pulse Rate 74 90 Respiratory Rate Blood Pressure Pulse Oximetry 93 Oxygen Delivery High Flow Nasal Cannula Oxygen Flow Rate 5 01/31/24 22:00 02/01/24 00:00 02/01/24 00:00 Temperature 97 F L Pulse Rate 85 76 Respiratory Rate 20 Blood Pressure 126/65 Pulse Oximetry 93 96 Oxygen Delivery High Flow Nasal Cannula Oxygen Flow Rate 5 01/31/24 20:36 01/31/24 20:37 01/31/24 20:58 Temperature Pulse Rate 83 88 Respiratory Rate 20 20 Blood Pressure Pulse Oximetry 99 Oxygen Delivery High Flow Nasal Cannula Oxygen Flow Rate 5 02/01/24 03:00 02/01/24 03:17 02/01/24 04:00 Temperature 97.2 F L Pulse Rate 77 81 76 Respiratory Rate 18 18 16 Blood Pressure 152/66 H Pulse Oximetry 100 Oxygen Delivery Oxygen Flow Rate 02/01/24 00:00 02/01/24 02:00 02/01/24 04:00 Temperature Pulse Rate 88 80 Respiratory Rate Blood Pressure Pulse Oximetry 92 Oxygen Delivery High Flow Nasal Cannula Oxygen Flow Rate 5 02/01/24 04:00 02/01/24 06:00 02/01/24 08:29 Temperature Pulse Rate 88 81 Respiratory Rate Blood Pressure Pulse O
[2024-02-01 11:18] LABS: Glucose Point of Care 121 mg/dl (65-105)
--- NOTE | 2024-02-01 14:43 | PC.NURSE ---
This patient, Nelsy Grider, was transferred to [facility] on 02/01/24 at 1443. Personal belongings sent with patient. Report given to Albertina GALARZA. Appropriate documentation sent with patient.
[2024-02-01 16:17] LABS: Glucose Point of Care 335 mg/dl (65-105)
[2024-02-01] MEDS: INSULIN ASPART (*BKC) 100 UNITS/ML SUB-Q (16:37)
--- NOTE | 2024-02-01 18:41 | PM.IMPN ---
Progress Note: A&P Assessment and Plan (1) Anemia: Code(s): D64.9 - Anemia, unspecified Status: Acute (2) Chronic pulmonary embolism: Qualifiers: Pulmonary embolism type: unspecified Acute cor pulmonale presence: unspecified Qualified Code(s): I27.82 - Chronic pulmonary embolism Code(s): I27.82 - Chronic pulmonary embolism Status: Acute (3) Acute and chronic respiratory failure: Qualifiers: Respiratory failure complication: hypoxia Qualified Code(s): J96.21 - Acute and chronic respiratory failure with hypoxia Code(s): J96.20 - Acute and chronic respiratory failure, unspecified whether with hypoxia or hypercapnia Status: Acute (4) Pneumonia: Code(s): J18.9 - Pneumonia, unspecified organism Status: Acute Plan 73-year-old female with past medical history of CKD, cirrhosis, hypertension, COPD with chronic respiratory failure use of noninvasive ventilator at night although noncompliant, chronic PE on apixaban, insulin-dependent diabetes mellitus, hyperlipidemia, anemia presents on 01/23/2024 with worsening shortness of breath. Admitted for further eval and workup of sepsis, suspected bacterial pneumonia, and COVID-19. Acute on chronic respiratory failure -chronic COPD. She wears noninvasive ventilator at night and is on home O2 although she is noncompliant. -tested COVID positive on 12/30 and again on 01/22. CT chest demonstrating interstitial changes along with possible pneumonia and a 9 mm nodular opacity at right lower lobe. This is suggestive pneumonia and the patient will need follow-up CT scan in 1-3 months. she has follow-up with pulmonology as well. -BNP elevated to 1800 admission. Surface echo on 01/23 demonstrating EF of 65-70% with grade 1 diastolic dysfunction. IVC with greater than 50% collapse upon inspiration. Unlikely she has acute decompensated heart failure. She was given a few doses of Lasix. -treat bacterial pneumonia with levofloxacin IV. MRSA nares negative so vancomycin has been discontinued. Her COVID test was positive long before admission although considering her COPD Decadron was started. Continue DuoNeb scheduled as well. -she is stable but still on high-flow nasal cannula. Consult pulmonology. Complete viral respiratory pathogen panel ordered. Follow up with with pulmonary recommendations -attempt weaning patient off high-flow oxygen keeping O2 sats around 94% -goal is to keep patient's oxygen around at 6 liters/minute or under [facility] Severe sepsis without shock -present on admission. Lactate on admission 4.1 and has since cleared. Continue to monitor. Acute on chronic anemia -stable hemoglobin status post 1 unit PRBC. -LDH vitamin B12 and folate all within normal limits. -iron panel on admission suggestive of inflammatory anemia Insulin-dependent diabetes mellitus -continue Accu-Cheks with hypoglycemia protocol. -she has had hyperglycemia. Dose insulin sliding scale switch to moderate dose. Lantus 8 units q.h.s. started on 01/27, consider to wean this down Decadron is discontinued. Sinus tachycardia -present on admission. Has since resolved with initiation of low-dose beta-shay at 25 mg p.o. b.i.d.. She is on metoprolol 100 mg p.o. b.i.d. at home. History of hypertension -in the setting of sepsis we are holding off on her home antihypertensives. restarted on a low-dose metoprolol in light of sinus tachycardia although the proper treatment for that is to resolve her acute hypoxic respiratory failure. Continue to monitor Chronic PE -Eliquis restarted on 01/26 Mild leukocytosis -likely secondary to IV dexamethasone day 9 -monitor WBC count closely -WBCs 17.4 today likely due to steroids Chronic kidney disease -serum creatinine stable from 2.3-2.6 since admission. No prior values to compare as baseline. She likely has CKD stage 4. -avoid nephrotoxins if possible -Gentle IV hydr
[2024-02-01] MEDS: SODIUM CHLORIDE 0.9% IV 1,000 ML 75 ML IV CONT (21:00)
[2024-02-01] MEDS: INSULIN GLARGINE (*BKC) 100 UNITS/ML 8 UNITS SUB-Q (21:02)
[2024-02-01] MEDS: SODIUM CHLORIDE NASAL GEL 14.1 GM 1 APPLIC NASAL (21:02)
[2024-02-01 21:56] LABS: Creatinine Urine 43.6 mg/dL; Total Protein Urine Random 20 mg/dL; Ur Ttl Prot Creatinine Ratio 0.46 mg/mg (0-0.20)
[2024-02-01 22:27] LABS: Sodium Urine Random 43 meq/L
[2024-02-01 23:15] LABS: Glucose Point of Care 179 mg/dl (65-105)
[2024-02-02] VITALS (14 sets, daily range): BP systolic 136–155; BP diastolic 57–88; PULSE 78–115; RESP 18–22; TEMP 36.4–37.5; O2SAT 90–100
[2024-02-02] MEDS: IPRATROPIUM 0.5 MG/ALBUTEROL SULFATE 2.5 MG AMPUL.NEB 3 ML INHALATION ×4 (03:32→21:13)
[2024-02-02] MEDS: ACETYLCYSTEINE 20% INHAL SOLN 800 MG/4 ML VIAL 200 MG INHALATION ×4 (03:33→21:13)
[2024-02-02 07:04] LABS: Basophils Absolute Auto 0.1 K/mm3 (0.0-0.1); Basophils Percent Auto 0.3 % (0.2-1.2); Eosinophils Absolute Auto 0.2 K/mm3 (0-0.3); Eosinophils Percent Auto 0.9 % (0-4.4); Hematocrit 27.1 % (37.0-47.0); Hemoglobin 8.5 g/dL (12.0-15.0); Immature Granulocyte Absolute 0.99 K/mm3 (0.00-0.031); Immature Granulocyte Percent A 5.2 % (0-0.5); Lymphocytes Absolute Auto 1.39 K/mm3 (0.9-3.2); Lymphocytes Percent Auto 7.3 % (18.3-44.2); Mean Corpuscular HGB Conc 31.4 g/dl (32-36); Mean Corpuscular Hemoglobin 29.6 pg (26-34); Mean Corpuscular Volume 94.4 fl (80-100); Mean Platelet Volume 9.6 fl (7.4-10.4); Monocytes Absolute Auto 1.6 K/mm3 (0.1-0.6); Monocytes Percent Auto 8.3 % (2.6-8.5); Neutrophils Absolute Auto 14.8 K/mm3 (1.3-6.7); Platelet Count Result 548 k/mm3 (150-375); Red Blood Count 2.87 M/mm3 (4.2-5.4); Red Cell Distribution Width 14.1 % (11.5-14.5)
[2024-02-02 07:14] LABS: Anion Gap 3 mmol/L (4-12); Blood Urea Nitrogen 63 mg/dL (7-17); Carbon Dioxide 28 mmol/L (22-30); Chloride 106 mmol/L (98-107); Potassium 4.3 mmol/L (3.4-5.0); Sodium 137 mmol/L (137-145)
[2024-02-02 07:15] LABS: Calcium 8.1 mg/dL (8.4-10.2); Estimated CRCL calculation 16 ml/min; Estimated Glomerular Filt Rate 22; Glucose 67 mg/dL (65-110)
[2024-02-02] MEDS: FLUTICASONE/SALMETEROL 115-21 MCG INHALER 1 PUFF 2 PUFF INHALATION ×2 (07:21→21:13)
[2024-02-02 07:41] LABS: Glucose Point of Care 83 mg/dl (65-105)
[2024-02-02] MEDS: PANTOPRAZOLE 40 MG TABLET PO (08:17)
[2024-02-02] MEDS: APIXABAN 2.5 MG TABLET PO ×2 (08:17→20:33)
[2024-02-02] MEDS: METOPROLOL TARTRATE 25 MG TABLET PO ×2 (08:17→20:32)
--- NOTE | 2024-02-02 09:36 | PM.PNNEP ---
Progress Note: A&P Assessment and Plan (1) CKD (chronic kidney disease) stage 4, GFR 15-29 ml/min: Code(s): N18.4 - Chronic kidney disease, stage 4 (severe) Status: Acute Assessment and Plan: The patient has an elevated creatinine. She is said to have chronic kidney disease stage 4. we received records from [place]. Her baseline GFR is 21. Urine electrolytes non pre renal. CK is normal Ultrasound shows atrophy of the left kidney Eating and drinking okay. Creatinine came down and is now at baseline. Okay for discharge from the kidney standpoint. I will check some orders for tomorrow in case she does not go home today. (2) COPD (chronic obstructive pulmonary disease): Code(s): J44.9 - Chronic obstructive pulmonary disease, unspecified Status: Acute Assessment and Plan: The patient is getting supportive care (3) DM2 (diabetes mellitus, type 2): Code(s): E11.9 - Type 2 diabetes mellitus without complications Status: Acute Assessment and Plan: The patient is on Accu-Chek and sliding scale insulin (4) Pneumonia due to COVID-19 virus: Code(s): U07.1 - COVID-19; J12.82 - Pneumonia due to coronavirus disease 2019 Status: Acute Assessment and Plan: The patient is getting supportive care for this. off of isolation for the last few days. Subjective Date/time seen: 02/02/24 09:36 Interval history: patient feels okay today. No chest pain or shortness of breath eating well Exam Narrative: WDWN in NAD skin no rash or subQ nodules head ncat lungs clear bilaterally cor reg no rub or gallop abd BS+ nontender and soft ext no edema or cyanosis. Objective Data Vital Signs Vital Signs: Vital Signs - 24 hr 02/01/24 09:46 02/01/24 10:00 02/01/24 12:00 Temperature 99.2 F Pulse Rate 98 96 84 Respiratory Rate 14 Blood Pressure 124/49 L Pulse Oximetry 97 Oxygen Delivery Oxygen Flow Rate 02/01/24 13:33 02/01/24 13:33 02/01/24 13:46 Temperature Pulse Rate 88 84 Respiratory Rate 20 20 Blood Pressure Pulse Oximetry 96 Oxygen Delivery Nasal Cannula Oxygen Flow Rate 4 02/01/24 14:59 02/01/24 15:23 02/01/24 20:38 Temperature 98.2 F Pulse Rate 93 82 Respiratory Rate 16 20 Blood Pressure 131/67 Pulse Oximetry 96 97 Oxygen Delivery Nasal Cannula Oxygen Flow Rate 5 02/01/24 20:44 02/01/24 20:52 02/01/24 21:01 Temperature Pulse Rate 84 91 Respiratory Rate 20 Blood Pressure Pulse Oximetry 95 Oxygen Delivery Nasal Cannula Oxygen Flow Rate 4 02/01/24 21:42 02/01/24 20:00 02/02/24 03:33 Temperature 97.2 F L Pulse Rate 97 78 Respiratory Rate 20 20 Blood Pressure 141/67 H Pulse Oximetry 94 92 Oxygen Delivery Nasal Cannula Oxygen Flow Rate 5 02/02/24 03:44 02/02/24 05:07 02/02/24 07:23 Temperature 97.6 F Pulse Rate 80 95 Respiratory Rate 20 20 Blood Pressure 155/81 H Pulse Oximetry 100 90 Oxygen Delivery Nasal Cannula Oxygen Flow Rate 5 02/02/24 07:23 02/02/24 07:47 02/02/24 08:17 Temperature Pulse Rate 81 80 89 Respiratory Rate 20 20 Blood Pressure Pulse Oximetry Oxygen Delivery Oxygen Flow Rate Intake/Output Intake/Output: Intake & Output 01/30/24 01/31/24 02/01/24 02/02/24 23:59 23:59 23:59 23:59 Intake Total 1680 3720 3320.3 766 Output Total 1100 1225 461 250 Balance 580 2495 2859.3 516 Meds/Results Medications: Active Medications Generic Name Dose Route Start Last Admin Trade Name Freq PRN Reason Stop Dose Admin Acetylcysteine 200 mg 01/29/24 20:00 02/02/24 07:23 Acetylcysteine 20% Inhal Soln 800 Mg/4 Ml Vial INHALATION 200 mg Q6HRT OLIVIA Administration Albuterol/Ipratropium 3 ml 01/23/24 20:00 02/02/24 07:23 Ipratropium 0.5 Mg/Albuterol Sulfate 2.5 Mg Ampul.Neb 3 Ml INHALATION 3 ml Q6HRT OLIVIA Administration Apixaban 2.5 mg 01/23/24 21:00 02/02/24 0
[2024-02-02 11:47] LABS: Glucose Point of Care 112 mg/dl (65-105)
--- NOTE | 2024-02-02 13:48 | PM.IMPN ---
Progress Note: A&P Assessment and Plan (1) Acute and chronic respiratory failure: Qualifiers: Respiratory failure complication: hypoxia Qualified Code(s): J96.21 - Acute and chronic respiratory failure with hypoxia Code(s): J96.20 - Acute and chronic respiratory failure, unspecified whether with hypoxia or hypercapnia Status: Acute Assessment and Plan: Multifactorial including COVID. Patient is getting better. Will continue current treatment. When stable will transfer to rehab. (2) Anemia: Code(s): D64.9 - Anemia, unspecified Status: Acute Assessment and Plan: Stable monitor closely. (3) Chronic pulmonary embolism: Qualifiers: Pulmonary embolism type: unspecified Acute cor pulmonale presence: unspecified Qualified Code(s): I27.82 - Chronic pulmonary embolism Code(s): I27.82 - Chronic pulmonary embolism Status: Acute Assessment and Plan: Stable, continue current treatment. (4) Pneumonia: Code(s): J18.9 - Pneumonia, unspecified organism Status: Acute Assessment and Plan: Resolving, continue current treatment monitor closely. Plan Patient is clinically improving. Plan is to continue current treatment. Once stable will transfer patient to rehab. Increase wbc's probably is from Decadron. Code status DNR DVT prophylaxis medical Subjective Date/time seen: 02/02/24 13:48 Interval history: Patient was seen during the morning rounds today. Patient is feeling much better Decreased shortness of breath. No chest pain. No abdominal pain, nausea, no vomiting. Mood stable. Review of Systems Review of Systems: All systems reviewed & are unremarkable except as noted in HPI and below (the history and physical examination) Exam Narrative: PHYSICAL EXAMINATION: Vital signs: Please see the chart General physical exam: Lying in bed, pleasant and cooperative with exam, appears weak tired and fatigued Head/eyes: Atraumatic, EOMI, PERRLA ENT: Moist mucous membranes, nasal passages clear Neck: Supple, full range of motion, trachea midline CVS: S1 + S2, regular rate and rhythm, no murmurs Respiratory: Air entry is better. Few rhonchi. Abdomen: Soft, non-tender, bowel sounds +ve, no organomegaly Extremities: No clubbing, no cyanosis, no edema, no calf tenderness Musculoskeletal: Moves all, decreased range of motion, no muscle spasms Skin: Warm, dry, no jaundice, no cyanosis Neurological: Awake, alert, oriented x 3, cranial nerves II-XII intact, no focal neurological deficits Psychiatric: Normal mood, non suicidal Const: General: comfortable and no acute distress Other: A&O x3 HENMT: Face/Nose/Sinus: Normal nares present Mouth: Yes moist mucous membranes Other: NC in place Eyes: General: appearance normal, both eyes and all related structures Sclera: sclerae normal Pupils: Equal, round and reactive pupils present Neck: Neck: supple Resp: Effort & Inspection: normal respiratory effort Auscultation: crackles and diminished lung sounds Other: Diffuse rhonchi Cardio: Rate: regular rate and tachycardic Rhythm: regular rhythm Heart sounds: no gallops, no murmurs and no rubs Other: No murmur or ectopy. Skin: General skin exam: normal color and no rashes or lesions noted Wounds: no wounds Neuro: Cranial nerves: Yes Equal, round and reactive pupils present Speech: normal speech Sensory Exam: normal sensation Other: A/Ox self and type of place. Incorrect year and very little situational knowledge. Moving all extremities. Extrem: General: normal to inspection and no edema Psych: Affect: Anxious affect present Other: Poor insight and judgment, pleasant. Objective Data Vital Signs Vital Signs: Vital Signs - 24 hr 02/01/24 14:59 02/01/24 15:23 02/01/24 20:38 Temperature 36.8 C Pulse Rate 93 82 Respiratory Rate 16 20 Blood Pressure 131/67 Pulse Oximetr
[2024-02-02 16:44] LABS: Glucose Point of Care 103 mg/dl (65-105)
[2024-02-02] MEDS: INSULIN GLARGINE (*BKC) 100 UNITS/ML 8 UNITS SUB-Q (20:31)
[2024-02-02] MEDS: SODIUM CHLORIDE NASAL GEL 14.1 GM 1 APPLIC NASAL (20:33)
[2024-02-02 22:16] LABS: Glucose Point of Care 153 mg/dl (65-105)
[2024-02-03] VITALS (42 sets, daily range): BP systolic 131–200; BP diastolic 60–96; PULSE 90–148; RESP 16–36; TEMP 36.3–37.5; O2SAT 76–99
[2024-02-03] MEDS: ACETYLCYSTEINE 20% INHAL SOLN 800 MG/4 ML VIAL 200 MG INHALATION ×3 (02:46→19:15)
[2024-02-03] MEDS: IPRATROPIUM 0.5 MG/ALBUTEROL SULFATE 2.5 MG AMPUL.NEB 3 ML INHALATION ×3 (02:47→19:15)
[2024-02-03 06:28] LABS: Alveolar/Arterial O2 Gradient 342.7 mmHg; Base Excess ABG 0.2 mEq/l (+/-2.0); Carboxyhemoglobin 0.4 % THb (0-2.0); Fractional Inspired Oxygen 52 %; HCO3 ABG 24.7 mEq/l (22.0-26.0); Methemoglobin ABG 0.3 %THb (0-1.5); Oxygen Content ABG 12.7 %vol (16.0-22.0); Oxyhemoglobin 90.2 % THb (90.0-100.0); PCO2 ABG 39.5 mmHg (35.0-45.0); PO2 ABG 61.7 mmHg (80.0-100.0); PO2 FiO2 Ratio Arterial Blood 1.19 %; Reduced Hemoglobin 9.1 %THb (0-5.0); pH ABG 7.414 (7.350-7.450)
[2024-02-03 06:29] LABS: Basophils Absolute Auto 0.1 K/mm3 (0.0-0.1); Basophils Percent Auto 0.6 % (0.2-1.2); Eosinophils Absolute Auto 0.5 K/mm3 (0-0.3); Eosinophils Percent Auto 2.2 % (0-4.4); Hematocrit 28.2 % (37.0-47.0); Hemoglobin 8.7 g/dL (12.0-15.0); Immature Granulocyte Absolute 1.06 K/mm3 (0.00-0.031); Immature Granulocyte Percent A 4.6 % (0-0.5); Lymphocytes Absolute Auto 1.65 K/mm3 (0.9-3.2); Lymphocytes Percent Auto 7.2 % (18.3-44.2); Mean Corpuscular HGB Conc 30.9 g/dl (32-36); Mean Corpuscular Hemoglobin 29.5 pg (26-34); Mean Corpuscular Volume 95.6 fl (80-100); Mean Platelet Volume 9.7 fl (7.4-10.4); Monocytes Absolute Auto 1.8 K/mm3 (0.1-0.6); Monocytes Percent Auto 7.9 % (2.6-8.5); Neutrophils Absolute Auto 17.7 K/mm3 (1.3-6.7); Neutrophils Percent Auto 77.5 % (45.5-73.1); Platelet Count Result 552 k/mm3 (150-375); Red Blood Count 2.95 M/mm3 (4.2-5.4); Red Cell Distribution Width 14.4 % (11.5-14.5); White Blood Count 22.8 K/mm3 (4.5-10.0)
[2024-02-03 06:29] LABS: Device HIGH FLOW NASAL CANN; Modified Allen's Test Pass; Site Drawn LEFT RADIAL
[2024-02-03] MEDS: ALBUTEROL SULFATE NEB 2.5 MG/3 ML INH 10 MG INHALATION (06:43)
[2024-02-03] MEDS: IPRATROPIUM BR 0.02% INH SOLN 0.5 MG/2.5 ML VIAL 1 MG INHALATION (06:43)
--- NOTE | 2024-02-03 06:44 | P.PNCROSS_ITS ---
Event Note Event Note Event Note: Nursing staff called because patient developed respiratory distress. They arri ellen in the room found the patient tachypneic with respiratory rate in the 30s to 40s and low oxygen saturations. They had to titrate the patient's oxygen up from fiber 6 L nasal cannula up to non-rebreather in order to maintain oxygen saturations of 88 to a 90%. Orders were given for stat nebulizer treatment, and ABG. On review of patient's chart the patient's temperature was mildly elevated but not quite true fever she did have increasing white count although she just finished her steroid therapy yesterday. And she is recovering from acute COVID. Stat blood cultures, CBC and CMP were ordered. ABG was reviewed and was stable except for PO2 of 61 patient's oxygen saturation was 92% on 8 L high-flow.
[2024-02-03 06:48] LABS: Lactic Acid Reflex 1.1 mmol/L (0.7-2.0)
[2024-02-03 06:49] LABS: Alanine Aminotransferase 13 U/L (6-35); Albumin Level 2.7 g/dL (3.5-5.1); Alkaline Phosphatase 90 U/L (38-126); Anion Gap 3 mmol/L (4-12); Aspartate Amino Transferase 25 U/L (14-36); Bilirubin,Total 0.5 mg/dL (0.2-1.3); Blood Urea Nitrogen 62 mg/dL (7-17); Calcium 8.2 mg/dL (8.4-10.2); Carbon Dioxide 27 mmol/L (22-30); Chloride 106 mmol/L (98-107); Estimated CRCL calculation 18 ml/min; Estimated Glomerular Filt Rate 24; Glucose 80 mg/dL (65-110); Potassium 4.5 mmol/L (3.4-5.0); Sodium 136 mmol/L (137-145)
[2024-02-03 06:51] LABS: Influenza A QL RT-PCR Negative (Negative); Influenza B QL RT-PCR Negative (Negative); RSV RNA, RT-PCR Negative (Negative)
[2024-02-03 07:05] LABS: Microcytosis 1+ (NORMAL); Ovalocytes 1+; Platelet Estimate Adequate (Adequate); Schistocytes Rare
[2024-02-03 08:23] LABS: Glucose Point of Care 66 mg/dl (65-105)
[2024-02-03] MEDS: METOPROLOL TARTRATE 25 MG TABLET PO ×2 (08:24→20:06)
[2024-02-03] MEDS: APIXABAN 2.5 MG TABLET PO ×2 (08:25→20:06)
[2024-02-03] MEDS: PANTOPRAZOLE 40 MG TABLET PO (08:25)
[2024-02-03] MEDS: FLUTICASONE/SALMETEROL 115-21 MCG INHALER 1 PUFF 2 PUFF INHALATION ×2 (08:35→19:15)
[2024-02-03 08:50] LABS: Glucose Point of Care 129 mg/dl (65-105)
--- NOTE | 2024-02-03 09:39 | PM.PNNEP ---
Progress Note: A&P Assessment and Plan (1) CKD (chronic kidney disease) stage 4, GFR 15-29 ml/min: Code(s): N18.4 - Chronic kidney disease, stage 4 (severe) Status: Acute Assessment and Plan: The patient has an elevated creatinine. She is said to have chronic kidney disease stage 4. we received records from [place]. Her baseline GFR is 21. Urine electrolytes non pre renal. CK is normal Ultrasound shows atrophy of the left kidney Eating and drinking okay. Creatinine came down and is now at baseline. no longer getting IV fluids. (2) COPD (chronic obstructive pulmonary disease): Code(s): J44.9 - Chronic obstructive pulmonary disease, unspecified Status: Acute Assessment and Plan: The patient is getting supportive care (3) DM2 (diabetes mellitus, type 2): Code(s): E11.9 - Type 2 diabetes mellitus without complications Status: Acute Assessment and Plan: The patient is on Accu-Chek and sliding scale insulin (4) Pneumonia due to COVID-19 virus: Code(s): U07.1 - COVID-19; J12.82 - Pneumonia due to coronavirus disease 2019 Status: Acute Assessment and Plan: The patient is getting supportive care for this. off of isolation for the last few days. (5) Volume overload: Code(s): E87.70 - Fluid overload, unspecified Status: Acute Assessment and Plan: the patient has a few crackles in her chest. She is more short of breath and is requiring more oxygen. Will order a chest x-ray and some diuretics recheck some labs tomorrow. Subjective Date/time seen: 02/03/24 09:39 Interval history: Nelsy is feeling a little short of breath today. No shortness of breath. Last night she needed more oxygen. Exam Narrative: WDWN in NAD skin no rash or subQ nodules head ncat lungs Bibasilar crackles cor reg no rub or gallop abd BS+ nontender and soft ext no edema or cyanosis. Objective Data Vital Signs Vital Signs: Vital Signs - 24 hr 02/02/24 14:26 02/02/24 14:31 02/02/24 14:40 Temperature 98.4 F Pulse Rate 87 96 89 Respiratory Rate 18 19 18 Blood Pressure 136/57 L Pulse Oximetry 90 Oxygen Delivery Oxygen Flow Rate Fraction of Inspired Oxygen 02/02/24 20:32 02/02/24 21:15 02/02/24 20:00 Temperature Pulse Rate 110 H 115 H Respiratory Rate 18 Blood Pressure Pulse Oximetry 90 Oxygen Delivery Nasal Cannula Oxygen Flow Rate 6 Fraction of Inspired Oxygen 02/02/24 20:35 02/03/24 02:49 02/03/24 03:12 Temperature 99.5 F Pulse Rate 110 H 111 H 114 H Respiratory Rate 22 H 20 22 H Blood Pressure 155/88 H Pulse Oximetry 92 Oxygen Delivery Oxygen Flow Rate Fraction of Inspired Oxygen 02/03/24 05:21 02/03/24 05:21 02/03/24 05:30 Temperature 97.4 F L 97.4 F L Pulse Rate 95 115 H Respiratory Rate 16 32 H Blood Pressure 178/94 H 187/96 H Pulse Oximetry 94 95 86 L Oxygen Delivery Nasal Cannula Oxygen Flow Rate 8 Fraction of Inspired Oxygen 02/03/24 05:30 02/03/24 05:36 02/03/24 05:36 Temperature 97.4 F L Pulse Rate 115 H 104 H 115 H Respiratory Rate 32 H 32 H 32 H Blood Pressure 179/81 H Pulse Oximetry 86 L 92 92 Oxygen Delivery Nasal Cannula High Flow Therapy with Na Oxygen Flow Rate 9 15 Fraction of Inspired Oxygen 02/03/24 05:42 02/03/24 05:42 02/03/24 05:47 Temperature 97.4 F L 98.0 F Pulse Rate 102 H 102 H 95 Respiratory Rate 32 H 32 H 36 H Blood Pressure 175/89 H 178/73 H Pulse Oximetry 95 95 96 Oxygen Delivery High Flow Therapy with Na Oxygen Flow Rate 15 Fraction of Inspired Oxygen 45 02/03/24 05:47 02/03/24 05:51 02/03/24 05:25 Temperature Pulse Rate 95 90 Respiratory Rate 36 H 28 H Blood Pressure Pulse Oximetry 95 96 76 L Oxygen Delivery High Flow Therapy with Na Nasal Cannula Nasal Cannula Oxygen Flow Rate 15 10 9 Fraction of Inspired Oxygen 02/03/24 06:43 02/03/24
[2024-02-03 12:05] LABS: Glucose Point of Care 169 mg/dl (65-105)
--- NOTE | 2024-02-03 12:33 | PM.IMPN ---
Progress Note: A&P Assessment and Plan (1) Acute and chronic respiratory failure: Qualifiers: Respiratory failure complication: hypoxia Qualified Code(s): J96.21 - Acute and chronic respiratory failure with hypoxia Code(s): J96.20 - Acute and chronic respiratory failure, unspecified whether with hypoxia or hypercapnia Status: Acute Assessment and Plan: Multifactorial including COVID. Patient is getting better. Will continue current treatment. When stable will transfer to rehab. (2) Anemia: Code(s): D64.9 - Anemia, unspecified Status: Acute Assessment and Plan: Stable monitor closely. (3) Chronic pulmonary embolism: Qualifiers: Pulmonary embolism type: unspecified Acute cor pulmonale presence: unspecified Qualified Code(s): I27.82 - Chronic pulmonary embolism Code(s): I27.82 - Chronic pulmonary embolism Status: Acute Assessment and Plan: Stable, continue current treatment. (4) Pneumonia: Code(s): J18.9 - Pneumonia, unspecified organism Status: Acute Assessment and Plan: Resolving, continue current treatment monitor closely. Plan Patient is clinically improving. Plan is to continue current treatment. Once stable will transfer patient to rehab. Increase wbc's probably is from Decadron. Code status DNR DVT prophylaxis medical Subjective Date/time seen: 02/03/24 12:33 Interval history: Patient was seen during the morning rounds today. Mild shortness of breath no chest pain. No Abdominal pain, no nausea. Mood stable. Review of Systems Review of Systems: 14 systems were reviewed with pertinent positives and negatives per HPI. Except as documented in the HPI/progress notes, all other systems were reviewed and are negative. All systems reviewed & are unremarkable except as noted in HPI and below (the history and physical examination) Exam Narrative: PHYSICAL EXAMINATION: Vital signs: Please see the chart General physical exam: Lying in bed, pleasant and cooperative with exam, appears weak tired and fatigued Head/eyes: Atraumatic, EOMI, PERRLA ENT: Moist mucous membranes, nasal passages clear Neck: Supple, full range of motion, trachea midline CVS: S1 + S2, regular rate and rhythm, no murmurs Respiratory: Air entry is better. Few rhonchi. Abdomen: Soft, non-tender, bowel sounds +ve, no organomegaly Extremities: No clubbing, no cyanosis, no edema, no calf tenderness Musculoskeletal: Moves all, decreased range of motion, no muscle spasms Skin: Warm, dry, no jaundice, no cyanosis Neurological: Awake, alert, oriented x 3, cranial nerves II-XII intact, no focal neurological deficits Psychiatric: Normal mood, non suicidal Const: General: comfortable and no acute distress Other: A&O x3 HENMT: Face/Nose/Sinus: Normal nares present Mouth: Yes moist mucous membranes Other: NC in place Eyes: General: appearance normal, both eyes and all related structures Sclera: sclerae normal Pupils: Equal, round and reactive pupils present Neck: Neck: supple Resp: Effort & Inspection: normal respiratory effort Auscultation: crackles and diminished lung sounds Other: Diffuse rhonchi Cardio: Rate: regular rate and tachycardic Rhythm: regular rhythm Heart sounds: no gallops, no murmurs and no rubs Other: No murmur or ectopy. Skin: General skin exam: normal color and no rashes or lesions noted Wounds: no wounds Neuro: Cranial nerves: Yes Equal, round and reactive pupils present Speech: normal speech Sensory Exam: normal sensation Other: A/Ox self and type of place. Incorrect year and very little situational knowledge. Moving all extremities. Extrem: General: normal to inspection and no edema Psych: Affect: Anxious affect present Other: Poor insight and judgment, pleasant. Objective Data Vital Signs Vital Signs: Vital Signs - 24 hr 02/02/24 14:26 02/02/24
[2024-02-03] MEDS: PIPERACILLIN/TAZ 2.25G/NS 50ML 2.25 GM/50 ML BAG IVPB ×3 (13:02→23:39)
[2024-02-03] MEDS: levoFLOXacin 750 MG/D5W 150 ML 750 MG/150 ML BAG 100 MG IVPB (13:38)
[2024-02-03 17:17] LABS: Glucose Point of Care 183 mg/dl (65-105)
[2024-02-03] MEDS: BUMETANIDE INJ 1 MG/4 ML VIAL IV PUSH (17:37)
--- NOTE | 2024-02-03 19:15 | PC.NURSE ---
pt to IMU room 201 via bed, transported on 15 L high flow cannula, RT to accompany to place back on airvo once in new room, report called and updated on pt condition, son here to go along with pt
[2024-02-03 20:50] LABS: Glucose Point of Care 136 mg/dl (65-105)
[2024-02-03 21:13] LABS: IFOB Positive Control Positive; Immunochemical Fecal Occult Bl Positive (N)
--- NOTE | 2024-02-03 22:23 | PC.NURSE ---
This patient, Nelsy Grider, was received from [[id number] ] on 02/03/24 at 1918 for increased oxygen demands requiring Airvo high flow therapy. Patient/family oriented to unit policies and routines
[2024-02-04] VITALS (28 sets, daily range): BP systolic 130–154; BP diastolic 67–83; PULSE 86–113; RESP 19–26; TEMP 36.2–36.6; O2SAT 92–100
[2024-02-04] MEDS: IPRATROPIUM 0.5 MG/ALBUTEROL SULFATE 2.5 MG AMPUL.NEB 3 ML INHALATION ×4 (01:15→19:34)
[2024-02-04] MEDS: ACETYLCYSTEINE 20% INHAL SOLN 800 MG/4 ML VIAL 200 MG INHALATION ×3 (01:15→13:33)
[2024-02-04 05:16] LABS: Anion Gap 2 mmol/L (4-12); Blood Urea Nitrogen 60 mg/dL (7-17); Calcium 8.1 mg/dL (8.4-10.2); Carbon Dioxide 28 mmol/L (22-30); Chloride 105 mmol/L (98-107); Estimated CRCL calculation 16 ml/min; Estimated Glomerular Filt Rate 22; Glucose 156 mg/dL (65-110); Potassium 5.2 mmol/L (3.4-5.0); Sodium 135 mmol/L (137-145)
[2024-02-04] MEDS: PIPERACILLIN/TAZ 2.25G/NS 50ML 2.25 GM/50 ML BAG IVPB ×3 (07:04→17:15)
[2024-02-04] MEDS: FLUTICASONE/SALMETEROL 115-21 MCG INHALER 1 PUFF 2 PUFF INHALATION (07:16)
[2024-02-04 08:56] LABS: Glucose Point of Care 141 mg/dl (65-105)
[2024-02-04] MEDS: METOPROLOL TARTRATE 25 MG TABLET PO ×2 (09:00→21:17)
[2024-02-04] MEDS: PANTOPRAZOLE 40 MG TABLET PO (09:00)
[2024-02-04] MEDS: APIXABAN 2.5 MG TABLET PO ×2 (09:01→21:17)
[2024-02-04] MEDS: BUMETANIDE INJ 1 MG/4 ML VIAL IV PUSH (09:01)
--- NOTE | 2024-02-04 09:11 | PM.IMPN ---
Progress Note: A&P Assessment and Plan (1) Pneumonia: Code(s): J18.9 - Pneumonia, unspecified organism Status: Acute (2) COPD (chronic obstructive pulmonary disease): Code(s): J44.9 - Chronic obstructive pulmonary disease, unspecified Status: Acute (3) CKD (chronic kidney disease) stage 4, GFR 15-29 ml/min: Code(s): N18.4 - Chronic kidney disease, stage 4 (severe) Status: Acute (4) Anemia: Code(s): D64.9 - Anemia, unspecified Status: Acute (5) Chronic pulmonary embolism: Qualifiers: Acute cor pulmonale presence: unspecified Pulmonary embolism type: unspecified Qualified Code(s): I27.82 - Chronic pulmonary embolism Code(s): I27.82 - Chronic pulmonary embolism Status: Acute (6) Acute and chronic respiratory failure: Qualifiers: Respiratory failure complication: hypoxia Qualified Code(s): J96.21 - Acute and chronic respiratory failure with hypoxia Code(s): J96.20 - Acute and chronic respiratory failure, unspecified whether with hypoxia or hypercapnia Status: Acute (7) Pneumonia due to COVID-19 virus: Code(s): U07.1 - COVID-19; J12.82 - Pneumonia due to coronavirus disease 2019 Status: Acute (8) History of tobacco abuse: Code(s): Z87.891 - Personal history of nicotine dependence Status: Acute Plan (1) Acute and chronic respiratory failure: ?Qualifiers: ?Respiratory failure complication:?hypoxia? Qualified Code(s):?J96.21 - Acute and chronic respiratory failure with hypoxia ?Code(s): J96.20 - Acute and chronic respiratory failure, unspecified whether with hypoxia or hypercapnia ?Status:?Acute ?Assessment and Plan: Multifactorial including COVID.? Patient is getting better.? Will continue current treatment.? CXR 02/03 Stable diffuse lung disease, likely a combination of pneumonia and pulmonary edema superimposed on chronic lung disease. Patient needed high-flow oxygen 45, few to 80 ABG showed [employer] was consulted, follow recommendations (2) Anemia: ?Code(s): D64.9 - Anemia, unspecified ?Status:?Acute ?Assessment and Plan: Stool guaiac positive 02/02, hemoglobin stable, hemoglobin 8.7 02/02 Consult GI, (3) Chronic pulmonary embolism: ?Qualifiers: ?Pulmonary embolism type:?unspecified??Acute cor pulmonale presence:?unspecified? Qualified Code(s):?I27.82 - Chronic pulmonary embolism ?Code(s): I27.82 - Chronic pulmonary embolism ?Status:?Acute ?Assessment and Plan: Stable, continue current treatment. Eliquis 2.5 mg b.i.d. p.o., the renal does (4) Pneumonia: ?Code(s): J18.9 - Pneumonia, unspecified organism ?Status:?Acute ?Assessment and Plan: now patient is on Levaquin and Zosyn f/u procalcitonin HENOK on CKD stage 5 Cr down to the baseline Plan Patient is clinically improving.? Plan is to continue current treatment.? Once stable will transfer patient to rehab. Increase wbc's probably is from Decadron. Subjective Date/time seen: 02/04/24 09:11 Interval history: I saw exam patient today. Patient still on high-flow oxygen, no obvious wrist distress. Patient has some cough with scant phlegm.. Patient denies chest pain, abdomen pain, nausea vomiting. Patient has general weakness Exam Narrative: GENERAL: Pleasant, in no acute distress. Well-nourished. - EYES: EOMI. Anicteric. - HENT: Moist mucous membranes. - LUNGS: Decreased entry bilaterally, Clear to auscultation bilaterally, no wheezing, rhonchi, or rales. - CARDIOVASCULAR: Regular rate and rhythm. No murmur. No JVD. - ABDOMEN: Soft, non-tender and non-distended. No palpable masses. - EXTREMITIES: No edema. Peripheral pulses 2+. Non-tender. - NEUROLOGIC: No focal neurological deficits. CN II-XII grossly intact. - PSYCHIATRIC: Awake, Alert and oriented x 3. Appropriate mood and affect. - SKIN: No rashes or lesions. Warm. - LYMPH:
[2024-02-04 10:12] LABS: NT Pro B Type Natriuretic Pept 3520 pg/mL (19.9-100)
--- NOTE | 2024-02-04 10:16 | PM.PNNEP ---
Progress Note: A&P Assessment and Plan (1) CKD (chronic kidney disease) stage 4, GFR 15-29 ml/min: Code(s): N18.4 - Chronic kidney disease, stage 4 (severe) Status: Acute Assessment and Plan: baseline creatinine seems to run ~ 2.0 - 2.5mg/dl from review of outside records presumably due to hypertension, diabetes, vascular disease, and age-related change evaluation to date noted: renal u/s with left kidney atrophy urine electrolytes non prerenal CPK normal moderate proteinuria off IVFs at this time follow trend of repeat labs and UOP (2) Hypoxic respiratory failure: Code(s): J96.91 - Respiratory failure, unspecified with hypoxia Status: Acute Assessment and Plan: acute on chronic multiple issues playing a role: volume overload/pleural effusions previous COVID pneumonia known history of COPD on antibiotics, nebs, and supplemental oxygen Pulmonary following (3) Pneumonia due to COVID-19 virus: Code(s): U07.1 - COVID-19; J12.82 - Pneumonia due to coronavirus disease 2018 Status: Acute Assessment and Plan: reportedly treated for this on last hospitalization at [facility] continue supportive therapy (4) COPD (chronic obstructive pulmonary disease): Code(s): J44.9 - Chronic obstructive pulmonary disease, unspecified Status: Chronic Assessment and Plan: quite severe at baseline on nebulizer treatments seems compensated on triple inhalers at home (5) Volume overload: Code(s): E87.70 - Fluid overload, unspecified Status: Acute Assessment and Plan: s/p IV diuresis yesterday may need more further diuresis follow repeat imaging (6) DM2 (diabetes mellitus, type 2): Code(s): E11.9 - Type 2 diabetes mellitus without complications Status: Acute Assessment and Plan: follow accu-cheks glycemic control per [facility] Will continue to follow. Subjective Date/time seen: 02/04/24 10:16 Interval history: Follow-up for acute kidney injury/acute renal failure on chronic kidney disease. Chart reviewed -- assuming care from Dr. Vickers; renal function relatively stable with reasonable urine output in resposne to diuretics yesterday; reports improvement in her breathing in general but still with dyspnea on exertion and requiring significant oxygen support. Exam Narrative: General: elderly female in NAD Heart: normal S1 and S2; no rub Lungs: decreased at bases with a few crackles Abdomen: soft, nontender, nondistended, positive bowel sounds Extremities: no cyanosis or clubbing; no edema Skin: warm and dry Objective Data Vital Signs Vital Signs: Vital Signs Temp Pulse Resp BP Pulse Ox O2 Del Method O2 Flow Rate 02/04/24 08:00 96 High Flow Therapy with Na 45 02/04/24 09:00 100 02/04/24 07:49 97.8 F 93 20 151/83 H 96 02/04/24 07:37 87 24 H 02/04/24 07:16 94 High Flow Therapy with Na 45 02/04/24 07:16 99 24 H 02/04/24 06:00 89 02/04/24 05:50 95 High Flow Therapy with Na 45 02/04/24 04:00 86 02/04/24 04:00 100 High Flow Therapy with Na 45 02/04/24 04:02 97.6 F 95 19 151/68 H 100 02/04/24 02:00 86 02/04/24 01:45 99 High Flow Therapy with Na 45 02/04/24 01:44 108 H 24 H 02/03/24 23:00 98 High Flow Therapy with Na 45 02/04/24 01:16 109 H 24 H 02/03/24 22:00 111 H 02/03/24 20:00 129 H 02/03/24 19:22 137 H 02/04/24 01:38 99 High Flow Therapy with Na 45 02/04/24 00:00 98 High Flow Therapy with Na 45 02/04/24 00:00 98 02/03/24 23:26 97.4 F L 106 H 20 135/60 98 02/03/24 23:04 101 H 99 High Flow Therapy with Na 45 02/03/24 19:30 137 H 93 High Flow Therapy with Na 45 02/03/24 21:03 125 H 24 H 157/75 H 02/03/24 19:37 115 H 25 H 02/03/24
--- NOTE | 2024-02-04 10:16 | P.PNNP_ITS ---
Progress Note: A&P Assessment and Plan (1) CKD (chronic kidney disease) stage 4, GFR 15-29 ml/min: Code(s): N18.4 - Chronic kidney disease, stage 4 (severe) Status: Acute Assessment and Plan: * baseline creatinine seems to run ~ 2.0 - 2.5mg/dl from review of outside records * presumably due to hypertension, diabetes, vascular disease, and age-related change * evaluation to date noted: * renal u/s with left kidney atrophy * urine electrolytes non prerenal * CPK normal * moderate proteinuria * off IVFs at this time * follow trend of repeat labs and UOP (2) Hypoxic respiratory failure: Code(s): J96.91 - Respiratory failure, unspecified with hypoxia Status: Acute Assessment and Plan: * acute on chronic * multiple issues playing a role: * volume overload/pleural effusions * previous COVID pneumonia * known history of COPD * on antibiotics, nebs, and supplemental oxygen * Pulmonary following (3) Pneumonia due to COVID-19 virus: Code(s): U07.1 - COVID-19; J12.82 - Pneumonia due to coronavirus disease 2018 Status: Acute Assessment and Plan: * reportedly treated for this on last hospitalization at [facility] * continue supportive therapy (4) COPD (chronic obstructive pulmonary disease): Code(s): J44.9 - Chronic obstructive pulmonary disease, unspecified Status: Chronic Assessment and Plan: * quite severe at baseline * on nebulizer treatments * seems compensated * on triple inhalers at home (5) Volume overload: Code(s): E87.70 - Fluid overload, unspecified Status: Acute Assessment and Plan: * s/p IV diuresis yesterday * may need more further diuresis * follow repeat imaging (6) DM2 (diabetes mellitus, type 2): Code(s): E11.9 - Type 2 diabetes mellitus without complications Status: Acute Assessment and Plan: * follow accu-cheks * glycemic control per hopspitalists Will continue to follow. Subjective Date/time seen: 02/04/24 10:16 Interval history: Follow-up for acute kidney injury/acute renal failure on chronic kidney disease. Chart reviewed -- assuming care from Dr. Vickers; renal function relatively stable with reasonable urine output in resposne to diuretics yesterday; reports improvement in her breathing in general but still with dyspnea on exertion and requiring significant oxygen support. Exam Narrative: General: elderly female in NAD Heart: normal S1 and S2; no rub Lungs: decreased at bases with a few crackles Abdomen: soft, nontender, nondistended, positive bowel sounds Extremities: no cyanosis or clubbing; no edema Skin: warm and dry Objective Data Vital Signs Vital Signs: Vital Signs Temp Pulse Resp BP Pulse Ox O2 Del Method O2 Flow Rate 02/04/24 08:00 96 High Flow Therapy with Na 45 02/04/24 09:00 100 02/04/24 07:49 97.8 F 93 20 151/83 H 96 02/04/24 07:37 87 24 H 02/04/24 07:16 94 High Flow Therapy with Na 45 02/04/24 07:16 99 24 H 02/04/24 06:00 89 02/04/24 05:50 95 High Flow Therapy with Na 45 02/04/24 04:00 86 02/04/24 04:00 100 High Flow Therapy with Na 45 02/04/24 04:02 97.6 F 95 19 151/68 H 100 02/04/24 02:00 86
[2024-02-04 10:21] LABS: Procalcitonin 1.4 ng/mL
--- NOTE | 2024-02-04 13:42 | PM.PNPUL ---
Progress Note: A&P Assessment and Plan (1) Pneumonia due to COVID-19 virus: Code(s): U07.1 - COVID-19; J12.82 - Pneumonia due to coronavirus disease 2019 Status: Acute Assessment and Plan: Diagnosed 12/30/23, treated with steroids, did not get any remdesivir or other specific anti COVID treatment at [facility]. She had CXR and CT on January 22, infiltrates and effusion, L>R; needs to have repeat CXR. Her CT report at [facility] indicates that she did not have pneumonia when she was there.? Her infiltrates are new since this admission; her procalcitonin is negative which argues against a real bacterial pneumonia.? She has been on antibiotics this admission, Levaquin was stopped today.? I agree with stopping it, her white count is lower than admission, procalcitonin is negative.She had a small pleural effusion on asya left on admision, too small to tap. Consider repeat chest CT to evaluate infiltrates, effusion. 01/29/24: Will add Cornet valve, mucolytics to try to improve atelectasis in lingula, move secretions out. Her chest CT at [facility] before this admission says that she had no pneumonia; she had tree-in-bud infiltrates with some activity in the lingula. 02/04/2024. Patient is in the room in no respiratory distress. States her breathing is improved since when she came to the hospital but she has dyspnea on exertion moving in the bed. When I entered the room she was on high-flow nasal cannula 45 L and 80% with saturations 97%. I decreased her to 70% and her saturations were 93%. Creatinine is 2.2. Patient states she urinated yesterday with the Bumex and she feels better today. BNP today is 3520 Increased from 01/24/2024 at 1930. procalcitonin is 1.4 Increased from 01/29/2024 at 0.1. Chest x-ray today shows diffuse interstitial alveolar infiltrates with stable small pleural effusions. I's and O's are not accurate. Weight is 59.6 kg with an admission weight of 58 kg. Patient currently being treated for bacterial infection with Zosyn and Levaquin started on 02/03/2024 with her worsening hypoxemia. Previously received Levaquin from 01/25/24 through 01/29/2024 Plan: I will obtain CT scan of the chest without contrast to assess for post COVID interstitial lung disease -organizing pneumonia, fluid overload, Consolidations and/or mucus plugging. Discussed with Dr. Reyes, will follow with you (2) Hypoxic respiratory failure: Code(s): J96.91 - Respiratory failure, unspecified with hypoxia Status: Acute Assessment and Plan: 01/29/24: Patient wears oxygen at home, appears use 3 liters/minute, this was prior to admission at [facility] when she was diagnosed with COVID on 12/30/2023.? Currently her oxygen requirement is higher but this is not excessively high requirement for patients with COVID.? She was initially diagnosed with COVID a month ago so this is a prolonged episode.? In a 73-year-old with underlying lung disease, she does not have a a good prognosis, however her O2 need to not excessive.? She does not retain CO2. 02/01/2024: Patient was on 4 L nasal cannula. 02/03/2024 ABG on 8 L nasal cannula 7.41/40/62. 02/03/2024 08:00 patient was on 15 L nasal cannula saturations 92%. Later in the day the patient required high-flow nasal cannula 45 L and 95% FiO2. 02/04/24 10:00 currently the patient required high-flow nasal cannula 45 L and 70% FiO2 with saturations 92%. patient has had worsening oxygenation from 02/01/2024. She was treated for fluid overload on 02/02/2023 and states that she feels better today. She received Bumex 1 mg IV push this morning at 9:00 a.m.. Given her elevated BNP agree with as aggressive diuresis as tolerated by her cardiac and renal systems per hospitalist and concrete mixer operator. creatinine at 2.2 making aggressive diuresis difficult. CT scan chest as above. (3) COPD (chronic obstructive pulmonary disease): Code(s): J44.9 - Chronic obstructive pulmonary disease, unspecified
[2024-02-04 14:01] LABS: Glucose Point of Care 179 mg/dl (65-105)
[2024-02-04 17:19] LABS: Hematocrit 27.6 % (37.0-47.0); Hemoglobin 8.2 g/dL (12.0-15.0); Mean Corpuscular HGB Conc 29.7 g/dl (32-36); Mean Corpuscular Hemoglobin 29.6 pg (26-34); Mean Corpuscular Volume 99.6 fl (80-100); Mean Platelet Volume 9.8 fl (7.4-10.4); Platelet Count Result 512 k/mm3 (150-375); Red Blood Count 2.77 M/mm3 (4.2-5.4); Red Cell Distribution Width 14.6 % (11.5-14.5)
[2024-02-04 18:31] LABS: Glucose Point of Care 130 mg/dl (65-105)
[2024-02-04 20:34] LABS: Glucose Point of Care 260 mg/dl (65-105)
[2024-02-04] MEDS: INSULIN GLARGINE (*BKC) 100 UNITS/ML 8 UNITS SUB-Q (21:17)
[2024-02-04] MEDS: INSULIN ASPART (*BKC) 100 UNITS/ML SUB-Q (21:18)
[2024-02-04] MEDS: SODIUM CHLORIDE NASAL GEL 14.1 GM 1 APPLIC NASAL (21:20)
[2024-02-05] VITALS (31 sets, daily range): BP systolic 135–159; BP diastolic 59–87; PULSE 88–124; RESP 20–30; TEMP 36.2–36.8; O2SAT 76–98
[2024-02-05] MEDS: PIPERACILLIN/TAZ 2.25G/NS 50ML 2.25 GM/50 ML BAG IVPB ×2 (01:05→06:27)
[2024-02-05] MEDS: IPRATROPIUM 0.5 MG/ALBUTEROL SULFATE 2.5 MG AMPUL.NEB 3 ML INHALATION ×4 (01:31→20:10)
[2024-02-05 06:01] LABS: Procalcitonin 1.7 ng/mL
[2024-02-05 06:05] LABS: Basophils Absolute Auto 0.1 K/mm3 (0.0-0.1); Basophils Percent Auto 0.5 % (0.2-1.2); Eosinophils Absolute Auto 0.5 K/mm3 (0-0.3); Hematocrit 27.6 % (37.0-47.0); Hemoglobin 8.8 g/dL (12.0-15.0); Immature Granulocyte Absolute 0.54 K/mm3 (0.00-0.031); Immature Granulocyte Percent A 2.4 % (0-0.5); Lymphocytes Absolute Auto 0.97 K/mm3 (0.9-3.2); Lymphocytes Percent Auto 4.2 % (18.3-44.2); Mean Corpuscular HGB Conc 31.9 g/dl (32-36); Mean Corpuscular Hemoglobin 30.8 pg (26-34); Mean Corpuscular Volume 96.5 fl (80-100); Monocytes Absolute Auto 1.5 K/mm3 (0.1-0.6); Monocytes Percent Auto 6.4 % (2.6-8.5); Neutrophils Absolute Auto 19.4 K/mm3 (1.3-6.7); Neutrophils Percent Auto 84.5 % (45.5-73.1); Platelet Count Result 475 k/mm3 (150-375); Red Blood Count 2.86 M/mm3 (4.2-5.4); Red Cell Distribution Width 14.7 % (11.5-14.5); White Blood Count 22.9 K/mm3 (4.5-10.0)
[2024-02-05 06:16] LABS: Alanine Aminotransferase 23 U/L (6-35); Albumin Level 2.8 g/dL (3.5-5.1); Alkaline Phosphatase 171 U/L (38-126); Anion Gap 6 mmol/L (4-12); Aspartate Amino Transferase 31 U/L (14-36); Bilirubin,Total 0.6 mg/dL (0.2-1.3); Blood Urea Nitrogen 56 mg/dL (7-17); Calcium 8.5 mg/dL (8.4-10.2); Carbon Dioxide 28 mmol/L (22-30); Chloride 103 mmol/L (98-107); Estimated CRCL calculation 15 ml/min; Estimated Glomerular Filt Rate 21; Glucose 59 mg/dL (65-110); Phosphorus 5.4 mg/dL (2.5-4.5); Potassium 4.7 mmol/L (3.4-5.0); Sodium 137 mmol/L (137-145)
[2024-02-05] MEDS: DEXTROSE 50% 25 GM/50 ML SYRINGE IV PUSH (06:27)
[2024-02-05 06:44] LABS: Glucose Point of Care 105 mg/dl (65-105)
[2024-02-05 07:39] LABS: Platelet Clumps Present; Platelet Estimate Increased (Adequate); Poikilocytosis 1+
[2024-02-05 07:40] LABS: Schistocytes 1+
[2024-02-05] MEDS: PANTOPRAZOLE 40 MG TABLET PO (08:50)
[2024-02-05] MEDS: APIXABAN 2.5 MG TABLET PO ×2 (08:50→20:40)
[2024-02-05] MEDS: METOPROLOL TARTRATE 25 MG TABLET PO ×2 (08:50→20:40)
[2024-02-05] MEDS: levoFLOXacin 500 MG/D5W 100 ML 500 MG/100 ML BAG 100 MG IVPB (09:29)
--- NOTE | 2024-02-05 09:49 | PM.PNNEP ---
Progress Note: A&P Assessment and Plan (1) CKD (chronic kidney disease) stage 4, GFR 15-29 ml/min: Code(s): N18.4 - Chronic kidney disease, stage 4 (severe) Status: Acute Assessment and Plan: baseline creatinine seems to run ~ 2.0 - 2.5mg/dl from review of outside records presumably due to hypertension, diabetes, vascular disease, and age-related change evaluation to date noted: renal u/s with left kidney atrophy urine electrolytes non prerenal CPK normal moderate proteinuria follow trend of repeat labs and UOP (2) Hypoxic respiratory failure: Code(s): J96.91 - Respiratory failure, unspecified with hypoxia Status: Acute Assessment and Plan: acute on chronic multiple issues playing a role: volume overload/pleural effusions previous COVID pneumonia known history of COPD on antibiotics, nebs, and supplemental oxygen Pulmonary following (3) Pneumonia due to COVID-19 virus: Code(s): U07.1 - COVID-19; J12.82 - Pneumonia due to coronavirus disease 2018 Status: Acute Assessment and Plan: reportedly treated for this on last hospitalization at [facility] continue supportive therapy (4) COPD (chronic obstructive pulmonary disease): Code(s): J44.9 - Chronic obstructive pulmonary disease, unspecified Status: Chronic Assessment and Plan: quite severe at baseline on nebulizer treatments seems compensated on triple inhalers at home (5) Volume overload: Code(s): E87.70 - Fluid overload, unspecified Status: Acute Assessment and Plan: s/p IV diuresis on 02/02 may need more further diuresis will dose bumex today x 3 doses follow repeat imaging (6) DM2 (diabetes mellitus, type 2): Code(s): E11.9 - Type 2 diabetes mellitus without complications Status: Acute Assessment and Plan: follow accu-cheks glycemic control per hopspitalists Will continue to follow. Subjective Date/time seen: 02/05/24 09:49 Interval history: Follow-up for acute kidney injury/acute renal failure on chronic kidney disease. Renal function remains relatively stable but creatinine slightly higher in comparison to yesterday; unable to get repeat CT of chest as she was unable to lay flat on her back; still requiring significant oxygen support at this time but does not appear in any respiratory distress at the time of my visit. Exam Narrative: General: elderly female in NAD Heart: normal S1 and S2; no rub Lungs: coarse; decreased at bases with a few crackles Abdomen: soft, nontender, nondistended, positive bowel sounds Extremities: no cyanosis or clubbing; no edema Skin: warm and intact Objective Data Vital Signs Vital Signs: Vital Signs Temp Pulse Resp BP Pulse Ox O2 Del Method O2 Flow Rate 02/05/24 09:27 91 High Flow Therapy with Na 55 02/05/24 08:50 105 H 02/05/24 08:00 98.3 F 99 20 138/63 91 02/05/24 08:00 108 H 02/05/24 07:44 96 21 H 02/05/24 07:31 95 21 H 02/05/24 07:31 94 High Flow Therapy with Na 55 02/05/24 06:00 88 02/05/24 04:00 106 H 02/05/24 02:00 90 02/05/24 00:00 118 H 02/05/24 04:00 97 22 H 96 High Flow Therapy with Na 55 02/05/24 00:00 97 22 H 96 High Flow Therapy with Na 55 02/05/24 04:04 97.8 F 97 22 H 136/63 96 02/05/24 01:42 107 H 21 H 02/05/24 01:31 104 H 22 H 02/05/24 00:27 97.8 F 95 20 159/78 H 91 02/04/24 22:00 97 02/04/24 20:00 104 H 02/04/24 20:00 86 24 H 92 High Flow Therapy with Na 45 02/04/24 21:01 92 High Flow Therapy with Na 55 02/04/24 20:18 97.1 F L 86 24 H 130/67 98 02/04/24 19:43 93 High Flow Therapy with Na 45 02/04/24 19:43 112 H 22 H 02/04/24 19:35 113 H 23 H 02/04/24 18:00 108 H 02/04/24 16:00 96 High Flow Therapy
--- NOTE | 2024-02-05 09:49 | P.PNNP_ITS ---
Progress Note: A&P Assessment and Plan (1) CKD (chronic kidney disease) stage 4, GFR 15-29 ml/min: Code(s): N18.4 - Chronic kidney disease, stage 4 (severe) Status: Acute Assessment and Plan: * baseline creatinine seems to run ~ 2.0 - 2.5mg/dl from review of outside records * presumably due to hypertension, diabetes, vascular disease, and age-related change * evaluation to date noted: * renal u/s with left kidney atrophy * urine electrolytes non prerenal * CPK normal * moderate proteinuria * follow trend of repeat labs and UOP (2) Hypoxic respiratory failure: Code(s): J96.91 - Respiratory failure, unspecified with hypoxia Status: Acute Assessment and Plan: * acute on chronic * multiple issues playing a role: * volume overload/pleural effusions * previous COVID pneumonia * known history of COPD * on antibiotics, nebs, and supplemental oxygen * Pulmonary following (3) Pneumonia due to COVID-19 virus: Code(s): U07.1 - COVID-19; J12.82 - Pneumonia due to coronavirus disease 2018 Status: Acute Assessment and Plan: * reportedly treated for this on last hospitalization at [facility] * continue supportive therapy (4) COPD (chronic obstructive pulmonary disease): Code(s): J44.9 - Chronic obstructive pulmonary disease, unspecified Status: Chronic Assessment and Plan: * quite severe at baseline * on nebulizer treatments * seems compensated * on triple inhalers at home (5) Volume overload: Code(s): E87.70 - Fluid overload, unspecified Status: Acute Assessment and Plan: * s/p IV diuresis on 02/02 * may need more further diuresis * will dose bumex today x 3 doses * follow repeat imaging (6) DM2 (diabetes mellitus, type 2): Code(s): E11.9 - Type 2 diabetes mellitus without complications Status: Acute Assessment and Plan: * follow accu-cheks * glycemic control per hopspitalists Will continue to follow. Subjective Date/time seen: 02/05/24 09:49 Interval history: Follow-up for acute kidney injury/acute renal failure on chronic kidney disease. Renal function remains relatively stable but creatinine slightly higher in comparison to yesterday; unable to get repeat CT of chest as she was unable to lay flat on her back; still requiring significant oxygen support at this time but does not appear in any respiratory distress at the time of my visit. Exam Narrative: General: elderly female in NAD Heart: normal S1 and S2; no rub Lungs: coarse; decreased at bases with a few crackles Abdomen: soft, nontender, nondistended, positive bowel sounds Extremities: no cyanosis or clubbing; no edema Skin: warm and intact Objective Data Vital Signs Vital Signs: Vital Signs Temp Pulse Resp BP Pulse Ox O2 Del Method O2 Flow Rate 02/05/24 09:27 91 High Flow Therapy with Na 55 02/05/24 08:50 105 H 02/05/24 08:00 98.3 F 99 20 138/63 91 02/05/24 08:00 108 H 02/05/24 07:44 96 21 H 02/05/24 07:31 95 21 H 02/05/24 07:31 94 High Flow Therapy with Na 55 02/05/24 06:00 88 02/05/24 04:00 106 H 02/05/24 02:00 90 02/05/24 00:00 118 H 02/05/24 04:00 97 22 H 96 High Flow Therapy
--- NOTE | 2024-02-05 10:00 | PM.IMPN ---
Progress Note: A&P Assessment and Plan (1) Pneumonia: Code(s): J18.9 - Pneumonia, unspecified organism Status: Acute (2) COPD (chronic obstructive pulmonary disease): Code(s): J44.9 - Chronic obstructive pulmonary disease, unspecified Status: Chronic (3) CKD (chronic kidney disease) stage 4, GFR 15-29 ml/min: Code(s): N18.4 - Chronic kidney disease, stage 4 (severe) Status: Acute (4) Anemia: Code(s): D64.9 - Anemia, unspecified Status: Acute (5) Chronic pulmonary embolism: Qualifiers: Acute cor pulmonale presence: unspecified Pulmonary embolism type: unspecified Qualified Code(s): I27.82 - Chronic pulmonary embolism Code(s): I27.82 - Chronic pulmonary embolism Status: Acute (6) Acute and chronic respiratory failure: Qualifiers: Respiratory failure complication: hypoxia Qualified Code(s): J96.21 - Acute and chronic respiratory failure with hypoxia Code(s): J96.20 - Acute and chronic respiratory failure, unspecified whether with hypoxia or hypercapnia Status: Acute (7) Pneumonia due to COVID-19 virus: Code(s): U07.1 - COVID-19; J12.82 - Pneumonia due to coronavirus disease 2019 Status: Acute (8) History of tobacco abuse: Code(s): Z87.891 - Personal history of nicotine dependence Status: Acute Plan Acute and chronic respiratory failure: ?Qualifiers: ?Respiratory failure complication:?hypoxia? Qualified Code(s):?J96.21 - Acute and chronic respiratory failure with hypoxia ?Code(s): J96.20 - Acute and chronic respiratory failure, unspecified whether with hypoxia or hypercapnia ?Status:?Acute ?Assessment and Plan: Multifactorial including COVID.? Patient is getting better.? CXR / Stable diffuse lung disease, likely a combination of pneumonia and pulmonary edema superimposed on chronic lung disease. Patient needed high-flow oxygen 45, few to 80 ABG showed Account Underwriter was consulted, follow recommendations Pneumonia: ?Code(s): J18.9 - Pneumonia, unspecified organism ?Status:?Acute ?Assessment and Plan: now patient is on Levaquin and Zosyn f/u procalcitonin 1.4 4/, 1.[address] 02/04 ?Increased bilateral pulmonary infiltrates and atelectasis since 01/23/2024 Increased moderate left pleural effusion and new mild right pleural effusion since 01/23/2024 Chronic bilateral pulmonary scarring, honeycombing, emphysematous changes 02/04 procalcitonin 1.7, dc zosyn (since 02/02) start cefepime 2 gm q8h iv. UA pending 02/04 HENOK on CKD stage 5 Cr down to the baseline Anemia: ?Code(s): D64.9 - Anemia, unspecified ?Status:?Acute ?Assessment and Plan: Stool guaiac positive 02/02, hemoglobin stable, hemoglobin 8.7 02/02 Consult GI, Chronic pulmonary embolism: ?Qualifiers: ?Pulmonary embolism type:?unspecified??Acute cor pulmonale presence:?unspecified? Qualified Code(s):?I27.82 - Chronic pulmonary embolism ?Code(s): I27.82 - Chronic pulmonary embolism ?Status:?Acute ?Assessment and Plan: Stable, continue current treatment. Eliquis 2.5 mg b.i.d. p.o., the renal does Plan Patient is clinically improving.? Plan is to continue current treatment.? Once stable will transfer patient to rehab. Increase wbc's probably is from Decadron. Subjective Date/time seen: 02/05/24 10:00 Interval history: I saw exam patient today, patient still on BiPAP. Patient has a cough with scant phlegm. Patient has shortness breath. Patient has a general weakness. Patient afebrile, but has tachycardia tachypnea. Labs reviewed Exam Narrative: GENERAL: Ill-appearing Well-nourished. - EYES: EOMI. Anicteric. - HENT: Moist mucous membranes. - LUNGS: Decreased entry bilaterally, Clear to auscultation bilaterally, no wheezing, rhonchi, or rales. - CARDIOVASCULAR: Regular rate and rhythm. No murmur. No JVD.
--- NOTE | 2024-02-05 10:11 | PM.PNPUL ---
Progress Note: A&P Assessment and Plan (1) Pneumonia due to COVID-19 virus: Code(s): U07.1 - COVID-19; J12.82 - Pneumonia due to coronavirus disease 2019 Status: Acute Assessment and Plan: Diagnosed 12/30/23, treated with steroids, did not get any remdesivir or other specific anti COVID treatment at [facility]. She had CXR and CT on January 22, infiltrates and effusion, L>R; needs to have repeat CXR. Her CT report at [facility] indicates that she did not have pneumonia when she was there.? Her infiltrates are new since this admission; her procalcitonin is negative which argues against a real bacterial pneumonia.? She has been on antibiotics this admission, Levaquin was stopped today.? I agree with stopping it, her white count is lower than admission, procalcitonin is negative.She had a small pleural effusion on asya left on admision, too small to tap. Consider repeat chest CT to evaluate infiltrates, effusion. 01/29/24: Will add Cornet valve, mucolytics to try to improve atelectasis in lingula, move secretions out. Her chest CT at [facility] before this admission says that she had no pneumonia; she had tree-in-bud infiltrates with some activity in the lingula. 02/04/2024. Patient is in the room in no respiratory distress. States her breathing is improved since when she came to the hospital but she has dyspnea on exertion moving in the bed. When I entered the room she was on high-flow nasal cannula 45 L and 80% with saturations 97%. I decreased her to 70% and her saturations were 93%. Creatinine is 2.2. Patient states she urinated yesterday with the Bumex and she feels better today. BNP today is 3520 Increased from 01/24/2024 at 1930. procalcitonin is 1.4 Increased from 01/29/2024 at 0.1. Chest x-ray today shows diffuse interstitial alveolar infiltrates with stable small pleural effusions. I's and O's are not accurate. Weight is 59.6 kg with an admission weight of 58 kg. Patient currently being treated for bacterial infection with Zosyn and Levaquin started on 02/03/2024 with her worsening hypoxemia. Previously received Levaquin from 01/25/24 through 01/29/2024 Plan: I will obtain CT scan of the chest without contrast to assess for post COVID interstitial lung disease -organizing pneumonia, fluid overload, Consolidations and/or mucus plugging. 02/05/24: Patient is in no respiratory distress. She has shortness of breath when talking and dyspnea on exertion with any activity in the bed. White blood cell count is 22.9, creatinine is 2.30. When I enter the room she was on high-flow nasal cannula with 55 L and 74% FiO2 with saturations 98%. I decreased her to 55 L and 60% and her saturations were 91%. She cannot lay flat for a CT scan of the chest. Her weight today is 59.5. Plan: Patient is on Zosyn and Levaquin both day 3. She has diuresed but her creatinine is worse at 2.3 today. Will continue antibiotics today. Once the patient is clinically improved will get a CT scan of the chest to exclude post COVID interstitial lung disease-organizing pneumonia. She denies any mucus production. Discussed with Dr. Reyes, will follow with you (2) Hypoxic respiratory failure: Code(s): J96.91 - Respiratory failure, unspecified with hypoxia Status: Acute Assessment and Plan: 01/29/24: Patient wears oxygen at home, appears use 3 liters/minute, this was prior to admission at [facility] when she was diagnosed with COVID on 12/30/2023.? Currently her oxygen requirement is higher but this is not excessively high requirement for patients with COVID.? She was initially diagnosed with COVID a month ago so this is a prolonged episode.? In a 73-year-old with underlying lung disease, she does not have a a good prognosis, however her O2 need to not excessive.? She does not retain CO2. 02/01/2024: Patient was on 4 L nasal cannula. 02/03/2024 ABG on 8 L nasal cannula 7.41/40/62. 02/03/2024 08:00 patient was on 15 L nasal cannula satura
--- NOTE | 2024-02-05 11:41 | PCNWS ---
Weekly nutritional screen. Patient is tolerating current Diabetic consistent carb diet with adequate intake 50-100%. No weight loss reported. No nutritional recommendations at this time.
[2024-02-05] MEDS: CEFEPIME 2 GM/NS 50 ML 2 GM/50 ML BAG IVPB ×2 (11:45→18:21)
--- NOTE | 2024-02-05 12:24 | WPDGICN ---
Assessment and Plan Assessment and plan (1) Anemia: Code(s): D64.9 - Anemia, unspecified Status: Acute Assessment and Plan: Labs on admission WBC 19.4, Hgb 7.7, MCV 96.5, INR 1.2, PLTs 475, RDW 14.7 Na 133, creatinine 2.3, -Iron 59, iron stats 30%, TIBC low at 196, ferritin elevated 496. differentials include Gi blood loss with overlapping anemia of chronic disease stool occult positive. will need EGD and colonoscopy but this can be done as outpatient when pt is more stable. monitor for any acute drop in H&H or overt blood loss. (2) CKD (chronic kidney disease) stage 4, GFR 15-29 ml/min: Code(s): N18.4 - Chronic kidney disease, stage 4 (severe) Status: Acute (3) COPD (chronic obstructive pulmonary disease): Code(s): J44.9 - Chronic obstructive pulmonary disease, unspecified Status: Chronic Assessment and Plan: The patient is getting supportive care (4) DM2 (diabetes mellitus, type 2): Code(s): E11.9 - Type 2 diabetes mellitus without complications Status: Acute (5) Pneumonia due to COVID-19 virus: Code(s): U07.1 - COVID-19; J12.82 - Pneumonia due to coronavirus disease 2018 Status: Acute GI Consult Note Consult date/time: 02/05/24 12:24 Reason for consult: ANEMIA, positive occult blood, patient is on blood thinner HPI: Nelsy Grider is a 73 year old female who resides at a senior care. She was admitted to [facility] on 01/23/2024 for pneumonia.?Patient tested positive for COVID during last admission: 12/30 - 01/16. Past medical hx include COPD,on O2 4L nasal cannula, CHF, PE (on eliquis), cirrhosis, HTN, HLD, DM. Labs on admission WBC 19.4, Hgb 7.7, MCV 96.5, INR 1.2, PLTs 475, RDW 14.7 Na 133, creatinine 2.3, glucose 153, Mag 1.5, BNP 1810. Iron 59, iron stats 30%, TIBC low at 196, ferritin elevated 496. stool occult positive. Per patient med list, she takes ferrous sulfate 325 mg daily however she is not sure how long she is taking this or why it was started. She denies any previous hx of anemia. She has history of pulmonary embolism and is maintained on Eliquis 2.5 mg b.i.d. She denies any overt blood loss, no nausea, vomiting, abdominal pain, black or bloody stools. She denies any change in bowel habits. no family history of GI cancers. Never had scopes, Cirrhosis noted on imaging, pt denies any previous history of this. Denies any significant history of alcohol use of chronic liver disease. Review of Systems Review of Systems: All systems reviewed & are unremarkable except as noted in HPI and below Constitutional: Constitutional: Reports as per HPI Eyes: Eyes: Reports as per HPI ENT: Reports as per HPI PMFSH Past Medical History Medical History (Updated 02/05/24 @ 05:57 by Caleb Torres MD) Anemia CHF (congestive heart failure) Chronic pulmonary embolism Chronic respiratory failure with hypoxia Cirrhosis of liver CKD (chronic kidney disease) stage 4, GFR 15-29 ml/min COPD (chronic obstructive pulmonary disease) DM2 (diabetes mellitus, type 2) GERD (gastroesophageal reflux disease) HLD (hyperlipidemia) Severe protein-calorie malnutrition Solitary pulmonary nodule SVT (supraventricular tachycardia) Social History Social History Smoking packs per day: 2 Smoking cigarettes per day: 40.0 Years smoked: 53 Smoking pack-years: 106.00 Smoking status: Former smoker Alcohol intake: never Substance use: never Do You Feel Safe in your Home?: Yes Lack of Transportation: No Lack of Food: Never True Current Housing: I Have Housing Concerned About Future Housing: No Difficulty Paying Gas/Electric Bills: No Difficulty Paying for Meds: No Currently Unemployed: No Education: Grade School Difficulty w/ Childcare or Family Care: No Spiritual care concerns: No Meds Home Medications and Allergies Home Medications Medication Instru
[2024-02-05] MEDS: BUMETANIDE INJ 1 MG/4 ML VIAL 1.5 MG IV PUSH ×2 (13:14→18:20)
[2024-02-05 13:44] LABS: Glucose Point of Care 153 mg/dl (65-105)
[2024-02-05 17:14] LABS: Glucose Point of Care 75 mg/dl (65-105)
[2024-02-05] MEDS: methylPREDNISolone SOD SUCC 125 MG VIAL 40 MG IV PUSH ×2 (18:43→23:16)
[2024-02-05] MEDS: SODIUM CHLORIDE NASAL GEL 14.1 GM 1 APPLIC NASAL (20:41)
[2024-02-05 20:44] LABS: Glucose Point of Care 246 mg/dl (65-105)
[2024-02-05] MEDS: INSULIN GLARGINE (*BKC) 100 UNITS/ML 8 UNITS SUB-Q (20:48)
[2024-02-05] MEDS: INSULIN ASPART (*BKC) 100 UNITS/ML SUB-Q (20:49)
[2024-02-06] VITALS (28 sets, daily range): BP systolic 130–153; BP diastolic 62–83; PULSE 81–113; RESP 20–26; TEMP 35.9–36.8; O2SAT 91–98
[2024-02-06 01:12] LABS: Appearance Urine Clear (Clear); Bacteria Urine None Seen /hpf; Bilirubin Urine Negative (Negative); Blood Urine Negative (Negative); Color Urine Yellow (Yellow); Glucose Urine UA Negative (Negative); Ketones Urine Negative (Negative); Leukocyte Esterase Ur Trace LEU/UL (Negative); Need Manual Microscopic Reviewed; Nitrate Urine Negative (Negative); Protein Urine Trace mg/dL (Negative); Specific Grav Ur 1.011 (1.001-1.035); Squamous Epithelial Cell Urine None Seen /hpf (Few); Urobilinogen Urine 0.2 mg/dL (<2.0); WBC Urine 0-5 /hpf (0-3)
[2024-02-06 01:18] LABS: Add Urine Microscopic? YES
[2024-02-06] MEDS: IPRATROPIUM 0.5 MG/ALBUTEROL SULFATE 2.5 MG AMPUL.NEB 3 ML INHALATION ×4 (02:15→20:41)
[2024-02-06] MEDS: CEFEPIME 2 GM/NS 50 ML 2 GM/50 ML BAG IVPB ×3 (02:27→20:29)
[2024-02-06 04:36] LABS: Basophils Absolute Auto 0.1 K/mm3 (0.0-0.1); Basophils Percent Auto 0.4 % (0.2-1.2); Hematocrit 27.5 % (37.0-47.0); Hemoglobin 8.5 g/dL (12.0-15.0); Immature Granulocyte Absolute 0.31 K/mm3 (0.00-0.031); Immature Granulocyte Percent A 1.5 % (0-0.5); Lymphocytes Absolute Auto 0.36 K/mm3 (0.9-3.2); Lymphocytes Percent Auto 1.8 % (18.3-44.2); Mean Corpuscular HGB Conc 30.9 g/dl (32-36); Mean Corpuscular Hemoglobin 29.5 pg (26-34); Mean Corpuscular Volume 95.5 fl (80-100); Mean Platelet Volume 10.2 fl (7.4-10.4); Monocytes Absolute Auto 0.2 K/mm3 (0.1-0.6); Monocytes Percent Auto 1.1 % (2.6-8.5); Neutrophils Absolute Auto 19.2 K/mm3 (1.3-6.7); Neutrophils Percent Auto 95.2 % (45.5-73.1); Platelet Count Result 532 k/mm3 (150-375); Red Blood Count 2.88 M/mm3 (4.2-5.4); Red Cell Distribution Width 14.6 % (11.5-14.5); White Blood Count 20.1 K/mm3 (4.5-10.0)
[2024-02-06 04:52] LABS: Alanine Aminotransferase 18 U/L (6-35); Albumin Level 2.7 g/dL (3.5-5.1); Alkaline Phosphatase 153 U/L (38-126); Anion Gap 6 mmol/L (4-12); Aspartate Amino Transferase 20 U/L (14-36); Bilirubin,Total 0.7 mg/dL (0.2-1.3); Blood Urea Nitrogen 60 mg/dL (7-17); Calcium 8.3 mg/dL (8.4-10.2); Carbon Dioxide 26 mmol/L (22-30); Chloride 102 mmol/L (98-107); Estimated CRCL calculation 14 ml/min; Estimated Glomerular Filt Rate 19; Glucose 201 mg/dL (65-110); Phosphorus 6.8 mg/dL (2.5-4.5); Potassium 5.1 mmol/L (3.4-5.0); Sodium 134 mmol/L (137-145)
[2024-02-06 05:04] LABS: Platelet Estimate Increased (Adequate); Poikilocytosis 1+
[2024-02-06 05:05] LABS: Ovalocytes 1+; Schistocytes None Seen
[2024-02-06 05:26] LABS: Procalcitonin 1.3 ng/mL
[2024-02-06] MEDS: methylPREDNISolone SOD SUCC 125 MG VIAL 40 MG IV PUSH ×4 (05:31→23:40)
[2024-02-06 07:47] LABS: Glucose Point of Care 180 mg/dl (65-105)
[2024-02-06] MEDS: PANTOPRAZOLE 40 MG TABLET PO (08:39)
[2024-02-06] MEDS: BUMETANIDE INJ 1 MG/4 ML VIAL 1.5 MG IV PUSH (08:40)
[2024-02-06] MEDS: METOPROLOL TARTRATE 25 MG TABLET PO ×2 (08:40→20:30)
[2024-02-06] MEDS: APIXABAN 2.5 MG TABLET PO ×2 (08:40→20:30)
--- NOTE | 2024-02-06 09:14 | PM.IMPN ---
Progress Note: A&P Assessment and Plan (1) Pneumonia: Code(s): J18.9 - Pneumonia, unspecified organism Status: Acute (2) COPD (chronic obstructive pulmonary disease): Code(s): J44.9 - Chronic obstructive pulmonary disease, unspecified Status: Chronic (3) CKD (chronic kidney disease) stage 4, GFR 15-29 ml/min: Code(s): N18.4 - Chronic kidney disease, stage 4 (severe) Status: Acute (4) Anemia: Code(s): D64.9 - Anemia, unspecified Status: Acute (5) Chronic pulmonary embolism: Qualifiers: Acute cor pulmonale presence: unspecified Pulmonary embolism type: unspecified Qualified Code(s): I27.82 - Chronic pulmonary embolism Code(s): I27.82 - Chronic pulmonary embolism Status: Acute (6) Acute and chronic respiratory failure: Qualifiers: Respiratory failure complication: hypoxia Qualified Code(s): J96.21 - Acute and chronic respiratory failure with hypoxia Code(s): J96.20 - Acute and chronic respiratory failure, unspecified whether with hypoxia or hypercapnia Status: Acute (7) Pneumonia due to COVID-19 virus: Code(s): U07.1 - COVID-19; J12.82 - Pneumonia due to coronavirus disease 2019 Status: Acute (8) History of tobacco abuse: Code(s): Z87.891 - Personal history of nicotine dependence Status: Acute Plan Acute and chronic respiratory failure: ?Qualifiers: ?Respiratory failure complication:?hypoxia? Qualified Code(s):?J96.21 - Acute and chronic respiratory failure with hypoxia ?Code(s): J96.20 - Acute and chronic respiratory failure, unspecified whether with hypoxia or hypercapnia ?Status:?Acute ?Assessment and Plan: Multifactorial including COVID.? Patient is getting better.? CXR / Stable diffuse lung disease, likely a combination of pneumonia and pulmonary edema superimposed on chronic lung disease. Patient needed high-flow oxygen 45, few to 80 ABG showed Wardrobe Image Consultant was consulted, follow recommendations Pneumonia: ?Code(s): J18.9 - Pneumonia, unspecified organism ?Status:?Acute ?Assessment and Plan: now patient is on Levaquin and Zosyn f/u procalcitonin 1.4 4, 1.[address] 02/04 ?Increased bilateral pulmonary infiltrates and atelectasis since 01/23/2024 Increased moderate left pleural effusion and new mild right pleural effusion since 01/23/2024 Chronic bilateral pulmonary scarring, honeycombing, emphysematous changes 02/04 procalcitonin 1.7, dc zosyn (since 02/02) start cefepime 2 gm q8h iv. 02/05 proc 1.3 and wbc trends down, c/w abx today UA pending 02/04 no pyuria on ua 02/05 HENOK on CKD stage 5 Cr down to the baseline Anemia: ?Code(s): D64.9 - Anemia, unspecified ?Status:?Acute ?Assessment and Plan: Stool guaiac positive 02/02, hemoglobin stable, hemoglobin 8.7 02/02 Consult GI, Chronic pulmonary embolism: ?Qualifiers: ?Pulmonary embolism type:?unspecified??Acute cor pulmonale presence:?unspecified? Qualified Code(s):?I27.82 - Chronic pulmonary embolism ?Code(s): I27.82 - Chronic pulmonary embolism ?Status:?Acute ?Assessment and Plan: Stable, continue current treatment. Eliquis 2.5 mg b.i.d. p.o., the renal does Plan Patient is clinically improving.? Plan is to continue current treatment.? Once stable will transfer patient to rehab. Increase wbc's probably is from Decadron. Subjective Date/time seen: 02/06/24 09:14 Interval history: I saw exam patient today, patient is off BiPAP during the day, patient feels better, still has a cough with phlegm. Patient has a general weakness. Patient afebrile, but has tachycardia tachypnea. Labs reviewed, white blood cells trending down, per cards to is trending down Exam Narrative: GENERAL: Ill-appearing Well-nourished. - EYES: EOMI. Anicteric. - HENT: Moist mucous membranes. - LUNGS: Decreased entry bilateral
--- NOTE | 2024-02-06 09:30 | PM.PNPUL ---
Progress Note: A&P Assessment and Plan (1) Pneumonia due to COVID-19 virus: Code(s): U07.1 - COVID-19; J12.82 - Pneumonia due to coronavirus disease 2019 Status: Acute Assessment and Plan: Diagnosed 12/30/23, treated with steroids, did not get any remdesivir or other specific anti COVID treatment at [facility]. She had CXR and CT on January 22, infiltrates and effusion, L>R; needs to have repeat CXR. Her CT report at [facility] indicates that she did not have pneumonia when she was there.? Her infiltrates are new since this admission; her procalcitonin is negative which argues against a real bacterial pneumonia.? She has been on antibiotics this admission, Levaquin was stopped today.? I agree with stopping it, her white count is lower than admission, procalcitonin is negative.She had a small pleural effusion on asya left on admision, too small to tap. Consider repeat chest CT to evaluate infiltrates, effusion. 01/29/24: Will add Cornet valve, mucolytics to try to improve atelectasis in lingula, move secretions out. Her chest CT at [facility] before this admission says that she had no pneumonia; she had tree-in-bud infiltrates with some activity in the lingula. 02/04/2024. Patient is in the room in no respiratory distress. States her breathing is improved since when she came to the hospital but she has dyspnea on exertion moving in the bed. When I entered the room she was on high-flow nasal cannula 45 L and 80% with saturations 97%. I decreased her to 70% and her saturations were 93%. Creatinine is 2.2. Patient states she urinated yesterday with the Bumex and she feels better today. BNP today is 3520 Increased from 01/24/2024 at 1930. procalcitonin is 1.4 Increased from 01/29/2024 at 0.1. Chest x-ray today shows diffuse interstitial alveolar infiltrates with stable small pleural effusions. I's and O's are not accurate. Weight is 59.6 kg with an admission weight of 58 kg. S/P Levofloxacin 01/22-01/28, vanco 01/22X 1 dose. Patient currently being treated for bacterial infection with Zosyn and Levaquin started on 02/03/2024 with her worsening hypoxemia. Previously received Levaquin from 01/25/24 through 01/29/2024 Plan: I will obtain CT scan of the chest without contrast to assess for post COVID interstitial lung disease -organizing pneumonia, fluid overload, Consolidations and/or mucus plugging. 02/05/24: Patient is in no respiratory distress. She has shortness of breath when talking and dyspnea on exertion with any activity in the bed. White blood cell count is 22.9, creatinine is 2.30. When I enter the room she was on high-flow nasal cannula with 55 L and 74% FiO2 with saturations 98%. I decreased her to 55 L and 60% and her saturations were 91%. She cannot lay flat for a CT scan of the chest. Her weight today is 59.5. Plan: Patient is on Zosyn and Levaquin both day 3. She has diuresed but her creatinine is worse at 2.3 today. Will continue antibiotics today. Once the patient is clinically improved will get a CT scan of the chest to exclude post COVID interstitial lung disease-organizing pneumonia. She denies any mucus production. Hospitalist changed her Zosyn to cefepime Later in the day CT scan of the chest showed increased bilateral consolidations compared with 01/23/2024 and consistent with post COVID organizing pneumonia and started on Solu-Medrol 40 Q 6. 02/06/24: Patient is currently on high-flow 55 L and 90% FiO2 with saturations 95%. She is in no respiratory distress and says she is breathing okay. Minimal cough and phlegm production. White blood cell count 20.1, creatinine 2.5. Plan: will continue treatment for post COVID organizing pneumonia with Solu-Medrol 40 mg IV q.6 hours today (day 2 steroids). Continue Cefepime (day 2, s/p Zosyn 02/02 to 02/04) and Levaquin both day 4. Discussed with Dr. Reyes, will follow with you (2) Hypoxic respiratory failure: Code(s): J96.91 - Respiratory failure, unspecified with h
--- NOTE | 2024-02-06 11:30 | PCOTNOTE ---
The patient treatment was not able to be completed. Patient working with PT. Will plan to continue treatment per plan of care.
[2024-02-06 12:07] LABS: Glucose Point of Care 213 mg/dl (65-105)
[2024-02-06] MEDS: INSULIN ASPART (*BKC) 100 UNITS/ML SUB-Q ×3 (12:07→20:29)
--- NOTE | 2024-02-06 13:13 | P.PNNP_ITS ---
Progress Note: A&P Assessment and Plan (1) CKD (chronic kidney disease) stage 4, GFR 15-29 ml/min: Code(s): N18.4 - Chronic kidney disease, stage 4 (severe) Status: Acute Assessment and Plan: * baseline creatinine seems to run ~ 2.0 - 2.5mg/dl from review of outside records * presumably due to hypertension, diabetes, vascular disease, and age-related change * evaluation to date noted: * renal u/s with left kidney atrophy * urine electrolytes non prerenal * CPK normal * moderate proteinuria * follow trend of repeat labs and UOP (2) Hypoxic respiratory failure: Code(s): J96.91 - Respiratory failure, unspecified with hypoxia Status: Acute Assessment and Plan: * acute on chronic * multiple issues playing a role: * volume overload/pleural effusions * previous COVID pneumonia * known history of COPD * on antibiotics, nebs, and supplemental oxygen * Pulmonary following (3) Pneumonia due to COVID-19 virus: Code(s): U07.1 - COVID-19; J12.82 - Pneumonia due to coronavirus disease 2018 Status: Acute Assessment and Plan: * reportedly treated for this on last hospitalization at [facility] * repeat CT scan of chest seems consistent with post COVID organizing pneumonia * on steroids and antibiotics * continue supportive therapy (4) COPD (chronic obstructive pulmonary disease): Code(s): J44.9 - Chronic obstructive pulmonary disease, unspecified Status: Chronic Assessment and Plan: * quite severe at baseline * on nebulizer treatments * seems compensated * on triple inhalers at home (5) Volume overload: Code(s): E87.70 - Fluid overload, unspecified Status: Acute Assessment and Plan: * s/p IV diuresis PRN * continue diuretics PRN -- renal function may be limiting factor * follow repeat imaging (6) DM2 (diabetes mellitus, type 2): Code(s): E11.9 - Type 2 diabetes mellitus without complications Status: Acute Assessment and Plan: * follow accu-cheks * glycemic control per hopspitalists Will continue to follow. Subjective Date/time seen: 02/06/24 13:13 Interval history: Follow-up for acute kidney injury/acute renal failure on chronic kidney disease. Tolerated IV diuretics in the last 24 hours but creatinine slightly higher by AM labs today; able to get repeat CT of chest with findings noted and subsequently initiated on IV steroids; still requiring significant oxygen support but does not appear in respiratory distress; no acute issues/events overnight or earlier this morning. Exam Narrative: General: elderly female in NAD Heart: normal S1 and S2; no rub Lungs: coarse; decreased at bases with a few crackles Abdomen: soft, nontender, nondistended, positive bowel sounds Extremities: no cyanosis or clubbing; no edema Skin: no rash Objective Data Vital Signs Vital Signs: Vital Signs Temp Pulse Resp BP Pulse Ox O2 Del Method O2 Flow Rate 02/06/24 13:05 89 20 02/06/24 13:05 89 20 98 High Flow Therapy with Na 55 02/06/24 12:00 97 High Flow Therapy with Na 55 02/06/24 12:00 106 H 02/06/24 12:00 98.0 F 100 24 H 137/65 94 02/06/24 10:00 113 H 02/06/24 08:00 96 High Flow Therapy with Na 55 02/06/24 08:00 89 02/06/24
--- NOTE | 2024-02-06 13:13 | PM.PNNEP ---
Progress Note: A&P Assessment and Plan (1) CKD (chronic kidney disease) stage 4, GFR 15-29 ml/min: Code(s): N18.4 - Chronic kidney disease, stage 4 (severe) Status: Acute Assessment and Plan: baseline creatinine seems to run ~ 2.0 - 2.5mg/dl from review of outside records presumably due to hypertension, diabetes, vascular disease, and age-related change evaluation to date noted: renal u/s with left kidney atrophy urine electrolytes non prerenal CPK normal moderate proteinuria follow trend of repeat labs and UOP (2) Hypoxic respiratory failure: Code(s): J96.91 - Respiratory failure, unspecified with hypoxia Status: Acute Assessment and Plan: acute on chronic multiple issues playing a role: volume overload/pleural effusions previous COVID pneumonia known history of COPD on antibiotics, nebs, and supplemental oxygen Pulmonary following (3) Pneumonia due to COVID-19 virus: Code(s): U07.1 - COVID-19; J12.82 - Pneumonia due to coronavirus disease 2018 Status: Acute Assessment and Plan: reportedly treated for this on last hospitalization at [facility] repeat CT scan of chest seems consistent with post COVID organizing pneumonia on steroids and antibiotics continue supportive therapy (4) COPD (chronic obstructive pulmonary disease): Code(s): J44.9 - Chronic obstructive pulmonary disease, unspecified Status: Chronic Assessment and Plan: quite severe at baseline on nebulizer treatments seems compensated on triple inhalers at home (5) Volume overload: Code(s): E87.70 - Fluid overload, unspecified Status: Acute Assessment and Plan: s/p IV diuresis PRN continue diuretics PRN -- renal function may be limiting factor follow repeat imaging (6) DM2 (diabetes mellitus, type 2): Code(s): E11.9 - Type 2 diabetes mellitus without complications Status: Acute Assessment and Plan: follow accu-cheks glycemic control per hopspitalists Will continue to follow. Subjective Date/time seen: 02/06/24 13:13 Interval history: Follow-up for acute kidney injury/acute renal failure on chronic kidney disease. Tolerated IV diuretics in the last 24 hours but creatinine slightly higher by AM labs today; able to get repeat CT of chest with findings noted and subsequently initiated on IV steroids; still requiring significant oxygen support but does not appear in respiratory distress; no acute issues/events overnight or earlier this morning. Exam Narrative: General: elderly female in NAD Heart: normal S1 and S2; no rub Lungs: coarse; decreased at bases with a few crackles Abdomen: soft, nontender, nondistended, positive bowel sounds Extremities: no cyanosis or clubbing; no edema Skin: no rash Objective Data Vital Signs Vital Signs: Vital Signs Temp Pulse Resp BP Pulse Ox O2 Del Method O2 Flow Rate 02/06/24 13:05 89 20 02/06/24 13:05 89 20 98 High Flow Therapy with Na 55 02/06/24 12:00 97 High Flow Therapy with Na 55 02/06/24 12:00 106 H 02/06/24 12:00 98.0 F 100 24 H 137/65 94 02/06/24 10:00 113 H 02/06/24 08:00 96 High Flow Therapy with Na 55 02/06/24 08:00 89 02/06/24 08:40 102 H 02/06/24 07:50 96.7 F L 84 20 134/62 96 02/06/24 07:15 90 20 02/06/24 07:05 98 20 02/06/24 07:05 98 20 91 High Flow Therapy with Na 55 02/06/24 06:00 88 02/06/24 04:00 86 02/06/24 04:53 97.5 F L 82 22 H 130/74 92 02/06/24 04:00 89 26 H 98 High Flow Therapy with Na 55 02/06/24 02:22 89 26 H 02/06/24 02:15 94 92 High Flow Therapy with Na 55 02/06/24 02:15 94 26 H 02/06/24 02:00 92 02/06/24 00:00 97 02/05/24 23:36 97.9 F 100 22 H 135/84 90 02/05/24 23:13 96 20 94 High Flow Therapy with Na
--- NOTE | 2024-02-06 14:39 | PCOTNOTE ---
Attempted to see Patient for OT treatment session. Patient refused all activity, no participation this date.
--- NOTE | 2024-02-06 16:35 | WPDGIPROGNO ---
Progress Note: A&P Assessment and Plan (1) Pneumonia: Code(s): J18.9 - Pneumonia, unspecified organism Status: Acute Assessment and Plan: still requiring high flow oxygen and she is tachypneic reviewed CT scan lung- Increased bilateral pulmonary infiltrates and atelectasis since 01/23/2024, Increased moderate left pleural effusion and new mild right pleural effusion since 01/23/2024, Chronic bilateral pulmonary scarring, honeycombing, emphysematous changes she is not a candidate to undergo egd/colonoscopy because ongoing respiratory status, hgb has been stable ~ 8 and no overt gib will follow as needed (2) Acute and chronic respiratory failure: Qualifiers: Respiratory failure complication: hypoxia Qualified Code(s): J96.21 - Acute and chronic respiratory failure with hypoxia Code(s): J96.20 - Acute and chronic respiratory failure, unspecified whether with hypoxia or hypercapnia Status: Acute Assessment and Plan: pneumonia and copd by pulmonary (3) Occult blood in stools: Code(s): R19.5 - Other fecal abnormalities Status: Acute Assessment and Plan: no overt gib (4) CKD (chronic kidney disease) stage 4, GFR 15-29 ml/min: Code(s): N18.4 - Chronic kidney disease, stage 4 (severe) Status: Acute Assessment and Plan: creatinine ~ 2.5 (5) Cirrhosis of liver: Code(s): K74.60 - Unspecified cirrhosis of liver Status: Acute Assessment and Plan: liver enzymes normal by past medical history she can follow-up in office Subjective Date/time seen: 02/06/24 16:35 Interval history: still with generalized weakness, using oxygen, she is tachypneic she is eating, no report of gib Review of Systems Review of Systems: All systems reviewed & are unremarkable except as noted in HPI and below Exam Const: Other: ill appearing but more comfortable than yesterday HENMT: Other: oxygen by high flow nasal cannula Eyes: Sclera: sclerae normal Neck: Neck: supple Resp: Auscultation: rales Other: tachypneic Cardio: Rate: regular rate GI: GI Palp: Yes Soft to palpation and No Tenderness to palpation present (GI) Auscultation: normal bowel sounds Skin: General skin exam: normal color Neuro: Speech: normal speech Extrem: General: normal to inspection Psych: Mental Status: mental status grossly normal Objective Data Vital Signs Vital Signs: Vital Signs - 24 hr 02/05/24 20:00 02/05/24 20:20 02/05/24 20:40 Temperature 97.5 F L Pulse Rate 110 H 110 H 114 H Respiratory Rate 22 H 22 H Blood Pressure 143/87 H Pulse Oximetry 98 98 Oxygen Delivery High Flow Therapy with Na Oxygen Flow Rate 55 Fraction of Inspired Oxygen 90 02/05/24 20:10 02/05/24 20:10 02/05/24 20:42 Temperature Pulse Rate 124 H 124 H 112 H Respiratory Rate 30 H Blood Pressure Pulse Oximetry 76 L 88 L Oxygen Delivery High Flow Therapy with Na High Flow Therapy with Na Oxygen Flow Rate 55 55 Fraction of Inspired Oxygen 75 80 02/05/24 20:20 02/05/24 20:00 02/05/24 22:00 Temperature Pulse Rate 111 H 111 H 92 Respiratory Rate 26 H Blood Pressure Pulse Oximetry Oxygen Delivery Oxygen Flow Rate Fraction of Inspired Oxygen 02/05/24 23:13 02/05/24 23:36 02/06/24 00:00 Temperature 97.9 F Pulse Rate 96 100 97 Respiratory Rate 20 22 H Blood Pressure 135/84 Pulse Oximetry 94 90 Oxygen Delivery High Flow Therapy with Na Oxygen Flow Rate 55 Fraction of Inspired Oxygen 75 02/06/24 02:00 02/06/24 02:15 02/06/24 02:15 Temperature Pulse Rate 92 94 94 Respiratory Rate 26 H Blood Pressure Pulse Oximetry 92 Oxygen Delivery High Flow Therapy with Na Oxygen Flow Rate 55 Fraction of Inspired Oxygen 80 02/06/24 02:22 02/06/24 04:00 02/06/24 04:53 Temperature 97.5 F L Pulse Rate 89 89 82 Respiratory Rate 26 H 26 H 22 H Blood Pressure
[2024-02-06 16:40] LABS: Glucose Point of Care 243 mg/dl (65-105)
[2024-02-06] MEDS: INSULIN GLARGINE (*BKC) 100 UNITS/ML 8 UNITS SUB-Q (20:29)
[2024-02-06 20:47] LABS: Glucose Point of Care 341 mg/dl (65-105)
[2024-02-07] VITALS (36 sets, daily range): BP systolic 134–166; BP diastolic 66–80; PULSE 70–106; RESP 20–24; TEMP 36.4–36.9; O2SAT 76–100
[2024-02-07] MEDS: IPRATROPIUM 0.5 MG/ALBUTEROL SULFATE 2.5 MG AMPUL.NEB 3 ML INHALATION ×4 (02:43→19:54)
[2024-02-07] MEDS: CEFEPIME 2 GM/NS 50 ML 2 GM/50 ML BAG IVPB ×3 (04:15→18:36)
[2024-02-07 04:47] LABS: Basophils Percent Auto 0.2 % (0.2-1.2); Hematocrit 25.4 % (37.0-47.0); Hemoglobin 7.8 g/dL (12.0-15.0); Immature Granulocyte Absolute 0.24 K/mm3 (0.00-0.031); Immature Granulocyte Percent A 1.3 % (0-0.5); Lymphocytes Absolute Auto 0.49 K/mm3 (0.9-3.2); Lymphocytes Percent Auto 2.6 % (18.3-44.2); Mean Corpuscular HGB Conc 30.7 g/dl (32-36); Mean Corpuscular Hemoglobin 28.5 pg (26-34); Mean Corpuscular Volume 92.7 fl (80-100); Monocytes Absolute Auto 0.7 K/mm3 (0.1-0.6); Monocytes Percent Auto 3.5 % (2.6-8.5); Neutrophils Absolute Auto 17.7 K/mm3 (1.3-6.7); Neutrophils Percent Auto 92.4 % (45.5-73.1); Nucleated Red Blood Cells Perc 0.1 % (0.0-0.2); Platelet Count Result 575 k/mm3 (150-375); Red Blood Count 2.74 M/mm3 (4.2-5.4); Red Cell Distribution Width 14.2 % (11.5-14.5); White Blood Count 19.2 K/mm3 (4.5-10.0)
[2024-02-07] MEDS: methylPREDNISolone SOD SUCC 125 MG VIAL 40 MG IV PUSH ×4 (04:55→23:05)
[2024-02-07 05:12] LABS: Platelet Estimate Increased (Adequate)
[2024-02-07 05:13] LABS: Anisocytosis 1+; Hypochromasia 1+; Ovalocytes 1+; Schistocytes None Seen
[2024-02-07 05:14] LABS: Alanine Aminotransferase 15 U/L (6-35); Albumin Level 2.8 g/dL (3.5-5.1); Alkaline Phosphatase 148 U/L (38-126); Anion Gap 7 mmol/L (4-12); Aspartate Amino Transferase 17 U/L (14-36); Bilirubin,Total 0.5 mg/dL (0.2-1.3); Blood Urea Nitrogen 68 mg/dL (7-17); Calcium 8.2 mg/dL (8.4-10.2); Carbon Dioxide 22 mmol/L (22-30); Chloride 103 mmol/L (98-107); Estimated CRCL calculation 15 ml/min; Estimated Glomerular Filt Rate 20; Glucose 184 mg/dL (65-110); Magnesium 2.2 mg/dL (1.6-2.3); Phosphorus 6.4 mg/dL (2.5-4.5); Potassium 4.7 mmol/L (3.4-5.0); Sodium 132 mmol/L (137-145)
[2024-02-07 05:28] LABS: Procalcitonin 0.9 ng/mL
[2024-02-07 07:55] LABS: Glucose Point of Care 204 mg/dl (65-105)
[2024-02-07 07:58] LABS: NT Pro B Type Natriuretic Pept 17400 pg/mL (19.9-100)
--- NOTE | 2024-02-07 08:29 | P.PNPL_ITS ---
Progress Note: A&P Assessment and Plan (1) Pneumonia due to COVID-19 virus: Code(s): U07.1 - COVID-19; J12.82 - Pneumonia due to coronavirus disease 2019 Status: Acute Assessment and Plan: Diagnosed 12/30/23, treated with steroids, did not get any remdesivir or other specific anti COVID treatment at [facility]. She had CXR and CT on January 22, infiltrates and effusion, L>R; needs to have repeat CXR. Her CT report at [facility] indicates that she did not have pneumonia when she was there.? Her infiltrates are new since this admission; her procalcitonin is negative which argues against a real bacterial pneumonia.? She has been on antibiotics this admission, Levaquin was stopped today.? I agree with stopping it, her white count is lower than admission, procalcitonin is negative.She had a small pleural effusion on asya left on admision, too small to tap. Consider repeat chest CT to evaluate infiltrates, effusion. 01/29/24: Will add Cornet valve, mucolytics to try to improve atelectasis in lingula, move secretions out. Her chest CT at [facility] before this admission says that she had no pneumonia; she had tree-in-bud infiltrates with some activity in the lingula. 02/04/2024. Patient is in the room in no respiratory distress. States her breathing is improved since when she came to the hospital but she has dyspnea on exertion moving in the bed. When I entered the room she was on high-flow nasal cannula 45 L and 80% with saturations 97%. I decreased her to 70% and her saturations were 93%. Creatinine is 2.2. Patient states she urinated yesterday with the Bumex and she feels better today. BNP today is 3520 Increased from 01/24/2024 at 1930. procalcitonin is 1.4 Increased from 01/29/2024 at 0.1. Chest x-ray today shows diffuse interstitial alveolar infiltrates with stable small pleural effusions. I's and O's are not accurate. Weight is 59.6 kg with an admission weight of 58 kg. S/P Levofloxacin 01/22-01/28, vanco 01/22X 1 dose. Patient currently being treated for bacterial infection with Zosyn and Levaquin started on 02/03/2024 with her worsening hypoxemia. Previously received Levaquin from 01/25/24 through 01/29/2024 Plan: I will obtain CT scan of the chest without contrast to assess for post COVID interstitial lung disease -organizing pneumonia, fluid overload, Consolidations and/or mucus plugging. 02/05/24: Patient is in no respiratory distress. She has shortness of breath when talking and dyspnea on exertion with any activity in the bed. White blood cell count is 22.9, creatinine is 2.30. When I enter the room she was on high- flow nasal cannula with 55 L and 74% FiO2 with saturations 98%. I decreased her to 55 L and 60% and her saturations were 91%. She cannot lay flat for a CT scan of the chest. Her weight today is 59.5. Plan: Patient is on Zosyn and Levaquin both day 3. She has diuresed but her creatinine is worse at 2.3 today. Will continue antibiotics today. Once the patient is clinically improved will get a CT scan of the chest to exclude post COVID interstitial lung disease-organizing pneumonia. She denies any mucus production. Hospitalist changed her Zosyn to cefepime Later in the day CT scan of the chest showed increased bilateral consolidations compared with 01/23/2024 and consistent with post COVID organizing pneumonia and started on Solu-Medrol 40 Q 6 at 18:00. 02/06/24: Patient is currently on high-flow 55 L and 90% FiO2 with saturations 95%. She is in no respiratory distress and says she is breathing okay. Minimal cough and phlegm production. White blood cell count 20.1, creatinine 2.5. Plan: will continue treatment for post COVID organizing pneumonia with Solu- Medrol 40 mg IV q.6 hours t
--- NOTE | 2024-02-07 08:45 | PCOTNOTE ---
Per RN, Patient not appropriate to be seen this A.M. Patient unable to hold her O2 sats up, on increased Airvo settings.
--- NOTE | 2024-02-07 08:50 | PC.NURSE ---
Attempted to notify Dr. Sharpe and Dr. Poon of patients change in oxygen requirements. Patient up to 60L and 90% on Airvo per respiratory care. Patients Sp02 at 88% on tele monitor 94% on vitals machine.
--- NOTE | 2024-02-07 09:26 | PM.IMPN ---
Progress Note: A&P Assessment and Plan (1) Pneumonia: Code(s): J18.9 - Pneumonia, unspecified organism Status: Acute (2) COPD (chronic obstructive pulmonary disease): Code(s): J44.9 - Chronic obstructive pulmonary disease, unspecified Status: Chronic (3) CKD (chronic kidney disease) stage 4, GFR 15-29 ml/min: Code(s): N18.4 - Chronic kidney disease, stage 4 (severe) Status: Acute (4) Anemia: Code(s): D64.9 - Anemia, unspecified Status: Acute (5) Chronic pulmonary embolism: Qualifiers: Acute cor pulmonale presence: unspecified Pulmonary embolism type: unspecified Qualified Code(s): I27.82 - Chronic pulmonary embolism Code(s): I27.82 - Chronic pulmonary embolism Status: Acute (6) Acute and chronic respiratory failure: Qualifiers: Respiratory failure complication: hypoxia Qualified Code(s): J96.21 - Acute and chronic respiratory failure with hypoxia Code(s): J96.20 - Acute and chronic respiratory failure, unspecified whether with hypoxia or hypercapnia Status: Acute (7) Pneumonia due to COVID-19 virus: Code(s): U07.1 - COVID-19; J12.82 - Pneumonia due to coronavirus disease 2019 Status: Acute (8) History of tobacco abuse: Code(s): Z87.891 - Personal history of nicotine dependence Status: Acute Plan Acute and chronic respiratory failure: ?Qualifiers: ?Respiratory failure complication:?hypoxia? Qualified Code(s):?J96.21 - Acute and chronic respiratory failure with hypoxia ?Code(s): J96.20 - Acute and chronic respiratory failure, unspecified whether with hypoxia or hypercapnia ?Status:?Acute ?Assessment and Plan: Multifactorial including COVID.? Patient is getting better.? CXR 02/03 Stable diffuse lung disease, likely a combination of pneumonia and pulmonary edema superimposed on chronic lung disease. Patient needed high-flow oxygen 45, few to 80 ABG showed hypoxemic resp failure without CO2 retention today 02/06. Patient is on high-flow oxygen Designer/Writer was consulted, follow recommendations Pneumonia: ?Code(s): J18.9 - Pneumonia, unspecified organism ?Status:?Acute ?Assessment and Plan: now patient is on Levaquin and Zosyn f/u procalcitonin 1.4 4, 1.[address] 02/04 ?Increased bilateral pulmonary infiltrates and atelectasis since 01/23/2024 Increased moderate left pleural effusion and new mild right pleural effusion since 01/23/2024 Chronic bilateral pulmonary scarring, honeycombing, emphysematous changes 02/04 procalcitonin 1.7, dc zosyn (since 02/02) start cefepime 2 gm q8h iv. 02/05 proc 1.3 and wbc trends down, c/w abx today 44: Per consistent trending down to 0.9, white blood cell is trending down from 19,000 thousand, continue current antibiotics UA pending 02/04 no pyuria on ua 02/05 HENOK on CKD stage 5 Cr down to the baseline Anemia: ?Code(s): D64.9 - Anemia, unspecified ?Status:?Acute ?Assessment and Plan: Stool guaiac positive 02/02, hemoglobin stable, hemoglobin 8.7 02/02 Consult GI, Chronic pulmonary embolism: ?Qualifiers: ?Pulmonary embolism type:?unspecified??Acute cor pulmonale presence:?unspecified? Qualified Code(s):?I27.82 - Chronic pulmonary embolism ?Code(s): I27.82 - Chronic pulmonary embolism ?Status:?Acute ?Assessment and Plan: Stable, continue current treatment. Eliquis 2.5 mg b.i.d. p.o., the renal does laboratory operations coordinator, patient's nurse and respiratory therapist discussed with patient about code status, per child care provider the pt want to be DNR/DNI Subjective Date/time seen: 02/07/24 09:26 Interval history: I saw and examined the patient today. Patient feels better, patient denies shortness breath, has cough without phlegm. Patient is on high-flow oxygen. Patient denies chest pain abdomen pain. Labs reviewed. Patient still has leukocytosis
[2024-02-07] MEDS: INSULIN ASPART (*BKC) 100 UNITS/ML SUB-Q ×3 (09:31→20:21)
[2024-02-07] MEDS: METOPROLOL TARTRATE 25 MG TABLET PO ×2 (09:32→20:22)
[2024-02-07] MEDS: APIXABAN 2.5 MG TABLET PO ×2 (09:32→20:22)
[2024-02-07] MEDS: PANTOPRAZOLE 40 MG TABLET PO (09:33)
[2024-02-07] MEDS: levoFLOXacin 500 MG/D5W 100 ML 500 MG/100 ML BAG 100 MG IVPB (09:33)
[2024-02-07 10:45] LABS: Alveolar/Arterial O2 Gradient 542.4 mmHg; Base Excess ABG -2.5 mEq/l (+/-2.0); Fractional Inspired Oxygen 90 %; HCO3 ABG 22.7 mEq/l (22.0-26.0); Oxygen Content ABG 11.2 %vol (16.0-22.0); PCO2 ABG 40.9 mmHg (35.0-45.0); PO2 ABG 57.4 mmHg (80.0-100.0); PO2 FiO2 Ratio Arterial Blood 0.64 %; Total Hemoglobin 9.1 g/dL (12.0-18.0); pH ABG 7.363 (7.350-7.450)
[2024-02-07 10:47] LABS: Device HIGH FLOW THERAPY; Modified Allen's Test Pass; Oxyhemoglobin 87.2 % THb (90.0-100.0); Site Drawn LEFT RADIAL
[2024-02-07 12:36] LABS: Glucose Point of Care 297 mg/dl (65-105)
--- NOTE | 2024-02-07 12:40 | P.PNNP_ITS ---
Progress Note: A&P Assessment and Plan (1) CKD (chronic kidney disease) stage 4, GFR 15-29 ml/min: Code(s): N18.4 - Chronic kidney disease, stage 4 (severe) Status: Acute Assessment and Plan: * baseline creatinine seems to run ~ 2.0 - 2.5mg/dl from review of outside records * presumably due to hypertension, diabetes, vascular disease, and age-related change * evaluation to date noted: * renal u/s with left kidney atrophy * urine electrolytes non prerenal * CPK normal * moderate proteinuria * follow trend of repeat labs and UOP (2) Hypoxic respiratory failure: Code(s): J96.91 - Respiratory failure, unspecified with hypoxia Status: Acute Assessment and Plan: * acute on chronic * multiple issues playing a role: * volume overload/pleural effusions * COVID pneumonia * known history of COPD * on antibiotics, nebs, and supplemental oxygen * Pulmonary following (3) Pneumonia due to COVID-19 virus: Code(s): U07.1 - COVID-19; J12.82 - Pneumonia due to coronavirus disease 2018 Status: Acute Assessment and Plan: * reportedly treated for this on last hospitalization at [facility] * repeat CT scan of chest seems consistent with post COVID organizing pneumonia * on steroids and antibiotics * continue supportive therapy (4) COPD (chronic obstructive pulmonary disease): Code(s): J44.9 - Chronic obstructive pulmonary disease, unspecified Status: Chronic Assessment and Plan: * quite severe at baseline * on nebulizer treatments * seems compensated * on triple inhalers at home (5) Volume overload: Code(s): E87.70 - Fluid overload, unspecified Status: Acute Assessment and Plan: * s/p IV diuresis PRN * continue diuretics PRN -- renal function may be limiting factor * follow repeat imaging (6) DM2 (diabetes mellitus, type 2): Code(s): E11.9 - Type 2 diabetes mellitus without complications Status: Acute Assessment and Plan: * follow accu-cheks * glycemic control per hopspitalists Will continue to follow. Subjective Date/time seen: 02/07/24 12:40 Interval history: Follow-up for acute kidney injury/acute renal failure on chronic kidney disease. Remains on significant oxygen requirement at this time and more concerning, has issues/problems with oxygen saturations with any type of minimal activity; some tachypnea noted but denies any respiratory distress or problems with her breathing; remains on high dose steroids with limited improvement. Exam Narrative: General: elderly female in NAD Heart: normal S1 and S2; no rub Lungs: coarse; decreased at bases with a scattered crackles Abdomen: soft, nontender, nondistended, positive bowel sounds Extremities: no cyanosis or clubbing; no edema Skin: no nodules Objective Data Vital Signs Vital Signs: Vital Signs Temp Pulse Resp BP Pulse Ox O2 Del Method O2 Flow Rate 02/07/24 12:00 96 High Flow Therapy with Tr 60 02/07/24 11:43 98.5 F 103 H 24 H 136/80 92 02/07/24 10:00 101 H 02/07/24 08:00 99 02/07/24 08:00 100 High Flow Therapy with Tr 60 02/07/24 09:32 106 H 02/07/24 01:49 83 L High Flow Therapy with Na 60 02/07/24 08:50 93 94 High Flow Therapy with Na 60 02/07/24 08:41
--- NOTE | 2024-02-07 12:40 | PM.PNNEP ---
Progress Note: A&P Assessment and Plan (1) CKD (chronic kidney disease) stage 4, GFR 15-29 ml/min: Code(s): N18.4 - Chronic kidney disease, stage 4 (severe) Status: Acute Assessment and Plan: baseline creatinine seems to run ~ 2.0 - 2.5mg/dl from review of outside records presumably due to hypertension, diabetes, vascular disease, and age-related change evaluation to date noted: renal u/s with left kidney atrophy urine electrolytes non prerenal CPK normal moderate proteinuria follow trend of repeat labs and UOP (2) Hypoxic respiratory failure: Code(s): J96.91 - Respiratory failure, unspecified with hypoxia Status: Acute Assessment and Plan: acute on chronic multiple issues playing a role: volume overload/pleural effusions COVID pneumonia known history of COPD on antibiotics, nebs, and supplemental oxygen Pulmonary following (3) Pneumonia due to COVID-19 virus: Code(s): U07.1 - COVID-19; J12.82 - Pneumonia due to coronavirus disease 2018 Status: Acute Assessment and Plan: reportedly treated for this on last hospitalization at [facility] repeat CT scan of chest seems consistent with post COVID organizing pneumonia on steroids and antibiotics continue supportive therapy (4) COPD (chronic obstructive pulmonary disease): Code(s): J44.9 - Chronic obstructive pulmonary disease, unspecified Status: Chronic Assessment and Plan: quite severe at baseline on nebulizer treatments seems compensated on triple inhalers at home (5) Volume overload: Code(s): E87.70 - Fluid overload, unspecified Status: Acute Assessment and Plan: s/p IV diuresis PRN continue diuretics PRN -- renal function may be limiting factor follow repeat imaging (6) DM2 (diabetes mellitus, type 2): Code(s): E11.9 - Type 2 diabetes mellitus without complications Status: Acute Assessment and Plan: follow accu-cheks glycemic control per hopspitalists Will continue to follow. Subjective Date/time seen: 02/07/24 12:40 Interval history: Follow-up for acute kidney injury/acute renal failure on chronic kidney disease. Remains on significant oxygen requirement at this time and more concerning, has issues/problems with oxygen saturations with any type of minimal activity; some tachypnea noted but denies any respiratory distress or problems with her breathing; remains on high dose steroids with limited improvement. Exam Narrative: General: elderly female in NAD Heart: normal S1 and S2; no rub Lungs: coarse; decreased at bases with a scattered crackles Abdomen: soft, nontender, nondistended, positive bowel sounds Extremities: no cyanosis or clubbing; no edema Skin: no nodules Objective Data Vital Signs Vital Signs: Vital Signs Temp Pulse Resp BP Pulse Ox O2 Del Method O2 Flow Rate 02/07/24 12:00 96 High Flow Therapy with Tr 60 02/07/24 11:43 98.5 F 103 H 24 H 136/80 92 02/07/24 10:00 101 H 02/07/24 08:00 99 02/07/24 08:00 100 High Flow Therapy with Tr 60 02/07/24 09:32 106 H 02/07/24 01:49 83 L High Flow Therapy with Na 60 02/07/24 08:50 93 94 High Flow Therapy with Na 60 02/07/24 08:41 76 L High Flow Therapy with Na 55 02/07/24 08:02 97.9 F 85 20 166/78 H 100 02/07/24 08:04 84 20 02/07/24 07:47 88 20 02/07/24 07:42 93 98 High Flow Therapy with Na 55 02/07/24 06:00 74 02/07/24 05:15 97.8 F 78 20 145/69 H 97 02/07/24 04:00 80 02/07/24 04:00 82 20 95 High Flow Therapy with Tr 55 02/07/24 02:56 82 20 02/07/24 02:43 83 20 02/07/24 01:58 70 02/07/24 00:41 97.7 F 92 20 146/73 H 90 02/07/24 00:00 86 02/07/24 00:00 81 20 98 High Flow Therapy with Tr 55 02/06/24 22:00 81 02/06/24 20:00
[2024-02-07 16:41] LABS: Glucose Point of Care 138 mg/dl (65-105)
[2024-02-07 20:10] LABS: Glucose Point of Care 228 mg/dl (65-105)
[2024-02-07] MEDS: INSULIN GLARGINE (*BKC) 100 UNITS/ML 8 UNITS SUB-Q (20:21)
[2024-02-08] VITALS (31 sets, daily range): BP systolic 144–194; BP diastolic 68–87; PULSE 76–118; RESP 20–30; TEMP 36.1–36.6; O2SAT 68–96
[2024-02-08] MEDS: IPRATROPIUM 0.5 MG/ALBUTEROL SULFATE 2.5 MG AMPUL.NEB 3 ML INHALATION ×4 (01:59→20:01)
[2024-02-08] MEDS: CEFEPIME 2 GM/NS 50 ML 2 GM/50 ML BAG IVPB ×3 (02:31→18:52)
[2024-02-08 05:07] LABS: Basophils Percent Auto 0.2 % (0.2-1.2); Hematocrit 26.2 % (37.0-47.0); Hemoglobin 8.1 g/dL (12.0-15.0); Immature Granulocyte Absolute 0.23 K/mm3 (0.00-0.031); Immature Granulocyte Percent A 1.3 % (0-0.5); Lymphocytes Absolute Auto 0.41 K/mm3 (0.9-3.2); Lymphocytes Percent Auto 2.3 % (18.3-44.2); Mean Corpuscular HGB Conc 30.9 g/dl (32-36); Mean Corpuscular Hemoglobin 28.9 pg (26-34); Mean Corpuscular Volume 93.6 fl (80-100); Mean Platelet Volume 10.2 fl (7.4-10.4); Monocytes Absolute Auto 0.7 K/mm3 (0.1-0.6); Monocytes Percent Auto 3.9 % (2.6-8.5); Neutrophils Absolute Auto 16.3 K/mm3 (1.3-6.7); Neutrophils Percent Auto 92.3 % (45.5-73.1); Nucleated Red Blood Cells Perc 0.1 % (0.0-0.2); Platelet Count Result 549 k/mm3 (150-375); Red Cell Distribution Width 14.4 % (11.5-14.5); White Blood Count 17.7 K/mm3 (4.5-10.0)
[2024-02-08 05:29] LABS: Alanine Aminotransferase 13 U/L (6-35); Albumin Level 2.9 g/dL (3.5-5.1); Alkaline Phosphatase 143 U/L (38-126); Anion Gap 9 mmol/L (4-12); Aspartate Amino Transferase 13 U/L (14-36); Bilirubin,Total 0.6 mg/dL (0.2-1.3); Blood Urea Nitrogen 77 mg/dL (7-17); Calcium 8.5 mg/dL (8.4-10.2); Carbon Dioxide 20 mmol/L (22-30); Chloride 105 mmol/L (98-107); Estimated CRCL calculation 14 ml/min; Estimated Glomerular Filt Rate 18; Glucose 189 mg/dL (65-110); Magnesium 2.2 mg/dL (1.6-2.3); Phosphorus 6.5 mg/dL (2.5-4.5); Potassium 4.3 mmol/L (3.4-5.0); Sodium 134 mmol/L (137-145)
[2024-02-08 05:35] LABS: Anisocytosis 1+; Hypochromasia 1+; Ovalocytes 1+; Platelet Estimate Increased (Adequate); Schistocytes None Seen
[2024-02-08] MEDS: methylPREDNISolone SOD SUCC 125 MG VIAL 40 MG IV PUSH (06:28)
[2024-02-08 07:57] LABS: Glucose Point of Care 206 mg/dl (65-105)
[2024-02-08] MEDS: INSULIN ASPART (*BKC) 100 UNITS/ML SUB-Q ×3 (08:26→20:33)
[2024-02-08] MEDS: APIXABAN 2.5 MG TABLET PO ×2 (08:26→20:33)
[2024-02-08] MEDS: METOPROLOL TARTRATE 25 MG TABLET PO ×2 (08:26→20:33)
[2024-02-08] MEDS: PANTOPRAZOLE 40 MG TABLET PO (08:26)
--- NOTE | 2024-02-08 09:27 | PM.IMPN ---
Progress Note: A&P Assessment and Plan (1) Pneumonia: Code(s): J18.9 - Pneumonia, unspecified organism Status: Acute (2) COPD (chronic obstructive pulmonary disease): Code(s): J44.9 - Chronic obstructive pulmonary disease, unspecified Status: Chronic (3) CKD (chronic kidney disease) stage 4, GFR 15-29 ml/min: Code(s): N18.4 - Chronic kidney disease, stage 4 (severe) Status: Acute (4) Anemia: Code(s): D64.9 - Anemia, unspecified Status: Acute (5) Chronic pulmonary embolism: Qualifiers: Acute cor pulmonale presence: unspecified Pulmonary embolism type: unspecified Qualified Code(s): I27.82 - Chronic pulmonary embolism Code(s): I27.82 - Chronic pulmonary embolism Status: Acute (6) Acute and chronic respiratory failure: Qualifiers: Respiratory failure complication: hypoxia Qualified Code(s): J96.21 - Acute and chronic respiratory failure with hypoxia Code(s): J96.20 - Acute and chronic respiratory failure, unspecified whether with hypoxia or hypercapnia Status: Acute (7) Pneumonia due to COVID-19 virus: Code(s): U07.1 - COVID-19; J12.82 - Pneumonia due to coronavirus disease 2019 Status: Acute (8) History of tobacco abuse: Code(s): Z87.891 - Personal history of nicotine dependence Status: Acute Plan Acute and chronic respiratory failure: ?Qualifiers: ?Respiratory failure complication:?hypoxia? Qualified Code(s):?J96.21 - Acute and chronic respiratory failure with hypoxia ?Code(s): J96.20 - Acute and chronic respiratory failure, unspecified whether with hypoxia or hypercapnia ?Status:?Acute ?Assessment and Plan: Multifactorial including COVID.? Patient is getting better.? CXR 02/03 Stable diffuse lung disease, likely a combination of pneumonia and pulmonary edema superimposed on chronic lung disease. Patient needed high-flow oxygen 45, few to 80 ABG showed hypoxemic resp failure without CO2 retention today 02/06. Patient is on high-flow oxygen Data Reviewer was consulted, follow recommendations 02/07: Patient still need high-flow oxygen today. Per patient nurse report, patient declined BiPAP. I had a start discussion with patient, patient agreed to take BiPAP if O2 saturation could not not be maintained BiPAP high-flow oxygen Pneumonia: ?Code(s): J18.9 - Pneumonia, unspecified organism ?Status:?Acute ?Assessment and Plan: now patient is on Levaquin and Zosyn f/u procalcitonin 1.4 02/03, 1.[address] 02/04 ?Increased bilateral pulmonary infiltrates and atelectasis since 01/23/2024 Increased moderate left pleural effusion and new mild right pleural effusion since 01/23/2024 Chronic bilateral pulmonary scarring, honeycombing, emphysematous changes 02/04 procalcitonin 1.7, dc zosyn (since 02/02) start cefepime 2 gm q8h iv. 02/05 proc 1.3 and wbc trends down, c/w abx today 02/06: Procalcitonin trending down to 0.9, white blood cell is trending down from 19,000 thousand, continue current antibiotics 02/07: Leukocytosis continue to improve, patient is afebrile. Follow-up procalcitonin, continue IV antibiotics today 02/07: Patient has cough with scant phlegm, patient feels better, but patient has significant O2 dissection with mild exertion. Leukocytosis improving, procalcitonin is trending down. Continue antibiotics treatment UA pending 02/04 no pyuria on ua 02/05 HENOK on CKD stage 5 Cr is worse, Appreciate chemist instrumentation consultation Managements per chemist instrumentation Anemia: ?Code(s): D64.9 - Anemia, unspecified ?Status:?Acute ?Assessment and Plan: Stool guaiac positive 02/02, hemoglobin stable, hemoglobin 8.7 02/02 Consult GI, Chronic pulmonary embolism: ?Qualifiers: ?Pulmonary embolism type:?unspecified??Acute cor pulmonale presence:?unspecified? Qualified Code(s):?I27.82 - Chronic pulmonary embolism ?Code(s): I27.82
--- NOTE | 2024-02-08 09:42 | PM.PNNEP ---
Progress Note: A&P Assessment and Plan (1) CKD (chronic kidney disease) stage 4, GFR 15-29 ml/min: Code(s): N18.4 - Chronic kidney disease, stage 4 (severe) Status: Acute Assessment and Plan: baseline creatinine seems to run ~ 2.0 - 2.5mg/dl from review of outside records presumably due to hypertension, diabetes, vascular disease, and age-related change evaluation to date noted: renal u/s with left kidney atrophy urine electrolytes non prerenal CPK normal moderate proteinuria follow trend of repeat labs and UOP (2) Hypoxic respiratory failure: Code(s): J96.91 - Respiratory failure, unspecified with hypoxia Status: Acute Assessment and Plan: acute on chronic multiple issues playing a role: element of volume overload/pleural effusions COVID pneumonia known history of COPD on antibiotics, nebs, and supplemental oxygen diuretics PRN Pulmonary following (3) Pneumonia due to COVID-19 virus: Code(s): U07.1 - COVID-19; J12.82 - Pneumonia due to coronavirus disease 2018 Status: Acute Assessment and Plan: reportedly treated for this on last hospitalization at [facility] repeat CT scan of chest seems consistent with post COVID organizing pneumonia on steroids and antibiotics continue supportive therapy (4) COPD (chronic obstructive pulmonary disease): Code(s): J44.9 - Chronic obstructive pulmonary disease, unspecified Status: Chronic Assessment and Plan: quite severe at baseline on nebulizer treatments seems compensated on triple inhalers at home (5) Volume overload: Code(s): E87.70 - Fluid overload, unspecified Status: Acute Assessment and Plan: s/p IV diuresis continue diuretics PRN -- renal function may be limiting factor however, most recent CT scan with Increased moderate left pleural effusion and new mild right pleural effusion dose bumex 1mg IV bid x 2 doses today follow repeat imaging (6) DM2 (diabetes mellitus, type 2): Code(s): E11.9 - Type 2 diabetes mellitus without complications Status: Acute Assessment and Plan: follow accu-cheks glycemic control per hopspitalists Discussed case with Dr. Poon. Will continue to follow. Subjective Date/time seen: 02/08/24 09:42 Interval history: Follow-up for acute kidney injury/acute renal failure on chronic kidney disease. Denies any respiratory distress or breathing issues but remains on significant oxygen support at the time of my visit; despite all interventions to date, no significant weaning from oxygen support has been achieved; creatinine continues to fluctuate at this time as well; no issues or events overnight or earlier this morning. Exam Narrative: General: elderly female in NAD Heart: normal S1 and S2; no rub Lungs: coarse; decreased at bases with a scattered crackles Abdomen: soft, nontender, nondistended, positive bowel sounds Extremities: no cyanosis or clubbing; no edema Skin: warm and dry Objective Data Vital Signs Vital Signs: Vital Signs Temp Pulse Resp BP Pulse Ox O2 Del Method O2 Flow Rate 02/08/24 09:09 97 20 02/08/24 08:57 99 20 02/08/24 08:55 99 20 92 High Flow Therapy with Na 60 02/08/24 08:26 104 H 02/08/24 07:47 98 F 105 H 24 H 165/80 H 90 02/08/24 06:30 114 H 30 H 68 L High Flow Therapy with Na 60 02/08/24 06:00 92 02/08/24 04:00 99 02/08/24 04:00 85 22 H 96 High Flow Therapy with Na 60 02/08/24 03:38 97.8 F 85 22 H 159/68 H 96 02/08/24 02:00 76 02/08/24 02:07 93 22 H 02/08/24 01:59 89 22 H 02/08/24 00:00 80 02/07/24 23:50 80 21 H 95 High Flow Therapy with Na 60 02/07/24 23:40 97.6 F 80 21 H 149/67 H 95 02/07/24 22:00 80 02/07/24 20:00 95 02/07/24 20:22 94 02/07/24 20:07 92 24 H
--- NOTE | 2024-02-08 09:42 | P.PNNP_ITS ---
Progress Note: A&P Assessment and Plan (1) CKD (chronic kidney disease) stage 4, GFR 15-29 ml/min: Code(s): N18.4 - Chronic kidney disease, stage 4 (severe) Status: Acute Assessment and Plan: * baseline creatinine seems to run ~ 2.0 - 2.5mg/dl from review of outside records * presumably due to hypertension, diabetes, vascular disease, and age-related change * evaluation to date noted: * renal u/s with left kidney atrophy * urine electrolytes non prerenal * CPK normal * moderate proteinuria * follow trend of repeat labs and UOP (2) Hypoxic respiratory failure: Code(s): J96.91 - Respiratory failure, unspecified with hypoxia Status: Acute Assessment and Plan: * acute on chronic * multiple issues playing a role: * element of volume overload/pleural effusions * COVID pneumonia * known history of COPD * on antibiotics, nebs, and supplemental oxygen * diuretics PRN * Pulmonary following (3) Pneumonia due to COVID-19 virus: Code(s): U07.1 - COVID-19; J12.82 - Pneumonia due to coronavirus disease 2018 Status: Acute Assessment and Plan: * reportedly treated for this on last hospitalization at [facility] * repeat CT scan of chest seems consistent with post COVID organizing pneumonia * on steroids and antibiotics * continue supportive therapy (4) COPD (chronic obstructive pulmonary disease): Code(s): J44.9 - Chronic obstructive pulmonary disease, unspecified Status: Chronic Assessment and Plan: * quite severe at baseline * on nebulizer treatments * seems compensated * on triple inhalers at home (5) Volume overload: Code(s): E87.70 - Fluid overload, unspecified Status: Acute Assessment and Plan: * s/p IV diuresis * continue diuretics PRN -- renal function may be limiting factor * however, most recent CT scan with Increased moderate left pleural effusion and new mild right pleural effusion * dose bumex 1mg IV bid x 2 doses today * follow repeat imaging (6) DM2 (diabetes mellitus, type 2): Code(s): E11.9 - Type 2 diabetes mellitus without complications Status: Acute Assessment and Plan: * follow accu-cheks * glycemic control per [facility] Discussed case with Dr. Poon. Will continue to follow. Subjective Date/time seen: 02/08/24 09:42 Interval history: Follow-up for acute kidney injury/acute renal failure on chronic kidney disease. Denies any respiratory distress or breathing issues but remains on significant oxygen support at the time of my visit; despite all interventions to date, no significant weaning from oxygen support has been achieved; creatinine continues to fluctuate at this time as well; no issues or events overnight or earlier this morning. Exam Narrative: General: elderly female in NAD Heart: normal S1 and S2; no rub Lungs: coarse; decreased at bases with a scattered crackles Abdomen: soft, nontender, nondistended, positive bowel sounds Extremities: no cyanosis or clubbing; no edema Skin: warm and dry Objective Data Vital Signs Vital Signs: Vital Signs Temp Pulse Resp BP Pulse Ox O2 Del Method O2 Flow Rate 02/08/24 09:09 97 20 02/08/24 08:57 99 20 02/08/24 08:55 99 20 92 High Flow Therapy with Na 60 02/08/24 08:26 104 H
--- NOTE | 2024-02-08 09:59 | PM.PNPUL ---
Progress Note: A&P Assessment and Plan (1) Pneumonia due to COVID-19 virus: Code(s): U07.1 - COVID-19; J12.82 - Pneumonia due to coronavirus disease 2019 Status: Acute Assessment and Plan: Diagnosed 12/30/23, treated with steroids, did not get any remdesivir or other specific anti COVID treatment at [facility]. She had CXR and CT on January 22, infiltrates and effusion, L>R; needs to have repeat CXR. Her CT report at [facility] indicates that she did not have pneumonia when she was there.? Her infiltrates are new since this admission; her procalcitonin is negative which argues against a real bacterial pneumonia.? She has been on antibiotics this admission, Levaquin was stopped today.? I agree with stopping it, her white count is lower than admission, procalcitonin is negative.She had a small pleural effusion on asya left on admision, too small to tap. Consider repeat chest CT to evaluate infiltrates, effusion. 01/29/24: Will add Cornet valve, mucolytics to try to improve atelectasis in lingula, move secretions out. Her chest CT at [facility] before this admission says that she had no pneumonia; she had tree-in-bud infiltrates with some activity in the lingula. 02/04/2024. Patient is in the room in no respiratory distress. States her breathing is improved since when she came to the hospital but she has dyspnea on exertion moving in the bed. When I entered the room she was on high-flow nasal cannula 45 L and 80% with saturations 97%. I decreased her to 70% and her saturations were 93%. Creatinine is 2.2. Patient states she urinated yesterday with the Bumex and she feels better today. BNP today is 3520 Increased from 01/24/2024 at 1930. procalcitonin is 1.4 Increased from 01/29/2024 at 0.1. Chest x-ray today shows diffuse interstitial alveolar infiltrates with stable small pleural effusions. I's and O's are not accurate. Weight is 59.6 kg with an admission weight of 58 kg. S/P Levofloxacin 01/22-01/28, vanco 01/22X 1 dose. Patient currently being treated for bacterial infection with Zosyn and Levaquin started on 02/03/2024 with her worsening hypoxemia. Previously received Levaquin from 01/25/24 through 01/29/2024 Plan: I will obtain CT scan of the chest without contrast to assess for post COVID interstitial lung disease -organizing pneumonia, fluid overload, Consolidations and/or mucus plugging. 02/05/24: Patient is in no respiratory distress. She has shortness of breath when talking and dyspnea on exertion with any activity in the bed. White blood cell count is 22.9, creatinine is 2.30. When I enter the room she was on high-flow nasal cannula with 55 L and 74% FiO2 with saturations 98%. I decreased her to 55 L and 60% and her saturations were 91%. She cannot lay flat for a CT scan of the chest. Her weight today is 59.5. Plan: Patient is on Zosyn and Levaquin both day 3. She has diuresed but her creatinine is worse at 2.3 today. Will continue antibiotics today. Once the patient is clinically improved will get a CT scan of the chest to exclude post COVID interstitial lung disease-organizing pneumonia. She denies any mucus production. Hospitalist changed her Zosyn to cefepime Later in the day CT scan of the chest showed increased bilateral consolidations compared with 01/23/2024 and consistent with post COVID organizing pneumonia and started on Solu-Medrol 40 Q 6 at 18:00. 02/06/24: Patient is currently on high-flow 55 L and 90% FiO2 with saturations 95%. She is in no respiratory distress and says she is breathing okay. Minimal cough and phlegm production. White blood cell count 20.1, creatinine 2.5. Plan: will continue treatment for post COVID organizing pneumonia with Solu-Medrol 40 mg IV q.6 hours today (day 2 steroids). Continue Cefepime (day 2, s/p Zosyn 02/02 to 02/04) and Levaquin day 4. 02/07/24: patient is currently on high-flow nasal cannula 55 L and 84% and she was attempting to eat breakfast and her saturations decreased to
[2024-02-08 10:22] LABS: Procalcitonin 0.6 ng/mL
[2024-02-08] MEDS: predniSONE 20 MG TABLET 40 MG PO (10:48)
[2024-02-08 12:07] LABS: Glucose Point of Care 204 mg/dl (65-105)
--- NOTE | 2024-02-08 12:07 | PCRCNOTE ---
RT called to room due to pt having SOB and low SpO2 levels, RT increased Airvo settings to maxed out and 15L NRB placed to try and increased SpO2 levels.
[2024-02-08] MEDS: BUMETANIDE INJ 1 MG/4 ML VIAL IV PUSH ×2 (12:19→16:55)
--- NOTE | 2024-02-08 13:39 | PCRCNOTE ---
RT attempted to give patient 1400 neb treatment, at this time had to stop treatment due to low SpO2 levels without nonrebreather. RN informed of event.
[2024-02-08 15:35] LABS: Glucose Point of Care 125 mg/dl (65-105)
--- NOTE | 2024-02-08 16:17 | PCPTNOTE ---
Attempted PT re-evaluation, per RN, pt not able to safely participate with skilled therapy at this time. Will follow.
[2024-02-08] MEDS: amLODIPine BESYLATE 5 MG TABLET 10 MG PO (16:55)
[2024-02-08] MEDS: INSULIN GLARGINE (*BKC) 100 UNITS/ML 8 UNITS SUB-Q (20:32)
[2024-02-08 20:46] LABS: Glucose Point of Care 264 mg/dl (65-105)
[2024-02-09] VITALS (7 sets, daily range): BP systolic 105; BP diastolic 53; PULSE 66–114; RESP 20–26; TEMP 36.4; O2SAT 96–98
[2024-02-09] MEDS: IPRATROPIUM 0.5 MG/ALBUTEROL SULFATE 2.5 MG AMPUL.NEB 3 ML INHALATION (01:42)
[2024-02-09] MEDS: MORPHINE SULFATE (*CRX) 4 MG/ML INJ IV PUSH (02:14)
[2024-02-09] MEDS: CEFEPIME 2 GM/NS 50 ML 2 GM/50 ML BAG IVPB (02:15)
[2024-02-09] MEDS: LORazepam INJ (*CRX) 2 MG/ML VIAL 1 MG IV PUSH (02:15)
[2024-02-09 03:59] LABS: Basophils Percent Auto 0.1 % (0.2-1.2); Hematocrit 26.2 % (37.0-47.0); Hemoglobin 8.1 g/dL (12.0-15.0); Immature Granulocyte Absolute 0.28 K/mm3 (0.00-0.031); Immature Granulocyte Percent A 1.2 % (0-0.5); Lymphocytes Absolute Auto 0.72 K/mm3 (0.9-3.2); Lymphocytes Percent Auto 3.1 % (18.3-44.2); Mean Corpuscular HGB Conc 30.9 g/dl (32-36); Mean Corpuscular Hemoglobin 28.5 pg (26-34); Mean Corpuscular Volume 92.3 fl (80-100); Mean Platelet Volume 10.2 fl (7.4-10.4); Monocytes Absolute Auto 2.2 K/mm3 (0.1-0.6); Monocytes Percent Auto 9.4 % (2.6-8.5); Neutrophils Absolute Auto 19.8 K/mm3 (1.3-6.7); Neutrophils Percent Auto 86.2 % (45.5-73.1); Platelet Count Result 556 k/mm3 (150-375); Red Blood Count 2.84 M/mm3 (4.2-5.4); Red Cell Distribution Width 14.1 % (11.5-14.5)
[2024-02-09 04:20] LABS: Alanine Aminotransferase 13 U/L (6-35); Alkaline Phosphatase 147 U/L (38-126); Anion Gap 7 mmol/L (4-12); Aspartate Amino Transferase 18 U/L (14-36); Bilirubin,Total 0.6 mg/dL (0.2-1.3); Blood Urea Nitrogen 84 mg/dL (7-17); Calcium 8.4 mg/dL (8.4-10.2); Carbon Dioxide 26 mmol/L (22-30); Chloride 105 mmol/L (98-107); Estimated CRCL calculation 13 ml/min; Estimated Glomerular Filt Rate 17; Glucose 136 mg/dL (65-110); Magnesium 2.2 mg/dL (1.6-2.3); Phosphorus 6.1 mg/dL (2.5-4.5); Sodium 138 mmol/L (137-145)
[2024-02-09 04:35] LABS: Procalcitonin 0.4 ng/mL
--- NOTE | 2024-02-09 17:43 | P.DN_ITS ---
Discharge Summary Date and Time Date of : 02/09/24 Time of : 06:31 Provider Pronounced By: Sandra Frost RN Probable Cause of Probable Cause of : Acute on chronic respiratory failure secondary to severe end-stage COPD and pneumonia Summary Hospital Course: admitted [facility] after being discharged from [facility] for COVID. Was treated for pulmonary infiltrates with broad-spectrum antibiotics and for COPD exacerbation with bronchodilators and steroids. She required high- flow oxygen up to 55 L. her functional status was poor. She remained dyspneic. She and her family opted for comfort care. Mrs. Grider peacefully on 02/09/2024. Additional Data Confirmation of as documented by pronouncing clinician: Pupillary Reflex, Palpable Pulses, Response to Stimuli, Heart Tones and Breath Sounds Name of Provider Notified: Dr. Patel Time Provider Notified: 07:00 Family Requests Autopsy: No Veterinarian Assistant Notified: Yes Date [facility] Notified of : 02/09/24 Time [facility] Notified of : 07:05
== END 2024-02-09 06:31 | disposition expired | DRG 871 ==
LOC: ANHED 10:32 → ANH3MEDSUR 11:20 → ANHIMU 17:41 → ANH3MEDSUR 02-01 14:38 → ANHIMU 02-03 19:18
PROVIDERS: General Practice; Hospitalist; Internal Medicine; Internal Medicine Nephrology; Internal Medicine Pulmonary Disease; Student in an Organized Health Care Education/Training Program; Admitting Provider Family Medicine; Emergency Provider Emergency Medicine; PCP Physician Assistant; Visit Provider Internal Medicine
DX: A41.9 Sepsis, unspecified organism (principal); J12.82 Pneumonia due to coronavirus disease 2019; U07.1 COVID-19; J96.21 Acute and chronic respiratory failure with hypoxia; J44.0 Chronic obstructive pulmonary disease with (acute) lower respiratory infection; I27.82 Chronic pulmonary embolism; I13.0 Hypertensive heart and chronic kidney disease with heart failure and stage 1 through stage 4 chronic kidney disease, or unspecified chronic kidney disease; N18.4 Chronic kidney disease, stage 4 (severe); J43.2 Centrilobular emphysema; R65.20 Severe sepsis without septic shock; D63.1 Anemia in chronic kidney disease; E78.5 Hyperlipidemia, unspecified; E11.22 Type 2 diabetes mellitus with diabetic chronic kidney disease; E11.65 Type 2 diabetes mellitus with hyperglycemia; I50.9 Heart failure, unspecified; K74.60 Unspecified cirrhosis of liver; K21.9 Gastro-esophageal reflux disease without esophagitis; R41.0 Disorientation, unspecified; R91.1 Solitary pulmonary nodule; Z79.82 Long term (current) use of aspirin; Z91.199 Patient's noncompliance with other medical treatment and regimen due to unspecified reason; Z79.01 Long term (current) use of anticoagulants; Z79.4 Long term (current) use of insulin; Z79.84 Long term (current) use of oral hypoglycemic drugs; Z66 Do not resuscitate; Z99.81 Dependence on supplemental oxygen; Z87.891 Personal history of nicotine dependence
CPT/HCPCS: 36415; 36430; 36600; 71045; 71250; 76775; 80048; 80053; 80069; 81001; 82274; 82375; 82550; 82570; 82607; 82728; 82746; 82805; 82948; 83010; 83036; 83050; 83540; 83550; 83605; 83615; 83735; 83880; 84100; 84145; 84156; 84300; 84484; 85025; 85027; 85055; 85610; 85730; 86140; 86850; 86900; 86901; 86923; 87040; 87449; 87502; 87634; 87637; 87641; 87899; 93005; 93306; 94002; 94640; 97110; 97161; 97166; 97530; 97535; 99285; A9270; C9113; J0692; J1100; J1815; J1939; J1940; J1956; J2060; J2270; J2543; J2919; J2930; J3370; J3475; J7030; J7050; J7120; J7512; P9016